=== PATIENT | female | born 1955 | race Caucasian/White ===

== ENCOUNTER 2018-03-21 20:58 | Inpatient (IN) | payer MEDICARE ==
[2018-03-21] MEDS ORDERED: methylPREDNISolone SOD SUCCI 125 MG/2 ML VIAL IV STA (21:46)
[2018-03-21] MEDS ORDERED: SODIUM CHLORIDE 0.9% 1,000 ML IV STA (21:46)
[2018-03-21 22:18] LABS: HCT 40.9 % (34.0-46.0); HGB 14.6 gm/dL (11.4-16.0); MCH 30.8 pg (25.0-35.0); MCHC 35.8 g/dL (31.0-37.0); MCV 86.1 fL (80.0-100.0); Mean Platelet Volume 6.5; Platelet Count 337 k/uL (150-450); RBC 4.75 m/uL (3.80-5.40); RDW 13.4 % (11.5-15.5); WBC 11.7 k/uL (3.8-10.6)
[2018-03-21 22:31] LABS: Albumin 4.3 g/dL (3.5-5.0); Potassium 3.9 mmol/L (3.5-5.1); Total Bilirubin 0.6 mg/dL (0.2-1.3); Total Protein 6.9 g/dL (6.3-8.2)
--- NOTE | 2018-03-21 22:47 | XR ---
EXAMINATION TYPE: XR chest 2V DATE OF EXAM: 03/21/2018 COMPARISON: 02/07/2016 HISTORY: Difficulty breathing TECHNIQUE: Frontal and lateral views of the chest are obtained. FINDINGS: Heart and mediastinum are normal. Lungs are clear. Diaphragm is normal. Bony thorax is int act. There are chest leads. IMPRESSION: Normal chest. No adverse change compared to old exam.
[2018-03-21 22:51] LABS: Creatine Kinase MB 0.9 ng/mL (0.0-2.4)
[2018-03-21 22:56] LABS: Eosinophils # (M) 0.12 k/uL (0-0.7); Lymphocytes # (M) 2.57 k/uL (1.0-4.8); Neutrophils # (M) 8.31 k/uL (1.3-7.7); Neutrophils % (M) 71 %; Nucleated Red Blood Cells 0 /100 WBC (0-0); Total Cells Counted 100
[2018-03-21 23:02] LABS: Prothrombin Time 10.1 sec (9.0-12.0)
--- NOTE | 2018-03-22 00:45 | ED ---
Recheck HPI - General Chief Complaint: Recheck/Abnormal Lab/Rx Stated Complaint: sent by -heart concerns/bloodwork Time Seen by Provider: 03/21/18 21:41 Source: patient Mode of arrival: ambulatory Limitations: no limitations - History of Present Illness Initial Comments: Extremity years O female comes to the ER she said she has a baseline shortness of breath she is a smoker but the reason she is in the ER because her family doctor called her and said there was some abnormal labs the patient doesn't know whether he was low potassium or there was d-dimer was elevated white count. She denies any headaches no neck stiffness no chest pain she is short- winded no abdominal pain no frequency urgency dysuria no symptoms of TIA or CVA - Related Data Home Medications Medication Instructions Recorded Confirmed Atenolol [Tenormin] 25 mg PO DAILY 03/21/18 03/21/18 FLUoxetine HCL [PROzac] 20 mg PO DAILY 03/21/18 03/21/18 Febuxostat [Uloric] 40 mg PO DAILY 03/21/18 03/21/18 Furosemide [Lasix] 40 mg PO DAILY 03/21/18 03/21/18 Levothyroxine Sodium [Synthroid] 50 mcg PO DAILY 03/21/18 03/21/18 Phentermine HCl [Adipex-P] 37.5 mg PO QAM@0900 03/21/18 03/21/18 Potassium Chloride [Klor-Con 20] 20 meq PO DAILY 03/21/18 03/21/18 Zolpidem Tartrate [Ambien] 5 mg PO HS PRN 03/21/18 03/21/18 Zolpidem [Ambien] 10 mg PO HS 03/21/18 03/21/18 oxyCODONE-APAP 10-325MG [Percocet 1 tab PO DAILY PRN 03/21/18 03/21/18 10-325 mg] rOPINIRole HCL [Requip] 1 mg PO HS 03/21/18 03/21/18 traMADol HCL [Ultram] 50 mg PO TID PRN 03/21/18 03/21/18 Allergies Allergy/AdvReac Type Severity Reaction Status Date / Time bupropion HCl Allergy Rash/Hives Verified 03/21/18 21:34 [From Wellbutrin] diclofenac potassium Allergy Anaphylaxis Verified 03/21/18 21:34 [From Cataflam] duloxetine HCl Allergy Rash/Hives Verified 03/21/18 21:34 [From Cymbalta] gabapentin [From Neurontin] Allergy Rash/Hives Verified 03/21/18 21:34 paroxetine HCl [From Paxil] Allergy Rash/Hives Verified 03/21/18 21:34 Review of Systems ROS Statement: Those systems with pertinent positive or pertinent negative responses have been documented in the HPI. ROS Other: All systems not noted in ROS Statement are negative. Past Medical History Additional Past Medical History / Comment(s): ruptured disc. History of Any Multi-Drug Resistant Organisms: None Reported Additional Past Surgical History / Comment(s): c4, c5, c6 fusion. Past Psychological History: Depression Smoking Status: Current every day smoker Past Alcohol Use History: Occasional Past Drug Use History: None Reported General Exam - General Exam Comments Initial Comments: General: The patient is awake and alert, in no distress, and does not appear acutely ill. Skin: Skin is warm and dry and no rashes or lesions are noted. Eye: Pupils are equal, round and reactive to light, extra-ocular movements are intact; there is normal conjunctiva bilaterally. Ears, nose, mouth and throat: There are moist mucous membranes and no oral lesions. Neck: The neck is supple, there is no tenderness or JVD. Cardiovascular: There is a regular rate and rhythm. No murmur, rub or gallop is appreciated. Respiratory: To auscultation bilateral, decreased breath sounds, exam consistent with a moderate to severe COPD Gastrointestinal: Soft, non-distended, non-tender abdomen without masses or organomegaly noted. There is no rebound or guarding present. Bowel sounds are unremarkable. Back: There is no tenderness to palpation in the midline. There is no obvious deformity. Musculoskeletal: Normal ROM, no tenderness, There is no pedal edema. There is no calf tenderness or swelling. No cords were appreciated. Neurological: CN II-XII intact, Cranial nerves III through XII are intact. There are no obvious motor or sensory deficits. Coordination appears grossly intact. Speech is normal. Psychiatric: Cooperative, appropriate mood & affect, normal judgment. Limitations: no limitations Course Vital Signs 03/21/18 03/21/18 03/21/18 21:01 21:50 22:50 Temperature 98.7 F Pulse Rate 83 65 Respiratory 16 22 20 Rate Blood Pressure 153/67 136/77 O2 Sat by Pulse 97 96 Oximetry 03/22/18 03/22/18 00:01 00:14 Temperature Pulse Rate 65 Respiratory 20 Rate Blood Pressure 115/72 O2 Sat by Pulse 98 Oximetry Medical Decision Making - Lab Data Result diagrams: 03/21/18 22:00 03/21/18 22:00 Lab Results 03/21/18 03/21/18 03/21/18 Range/Units 22:00 22:00 22:00 WBC 11.7 H (3.8-10.6) k/uL RBC 4.75 (3.80-5.40) m/uL Hgb 14.6 (11.4-16.0) gm/dL Hct 40.9 (34.0-46.0) % MCV 86.1 (80.0-100.0) fL MCH 30.8 (25.0-35.0) pg MCHC 35.8 (31.0-37.0) g/dL RDW 13.4 (11.5-15.5) % Plt Count 337 (150-450) k/uL Neutrophils % (Manual) 71 % Lymphocytes % (Manual) 22 % Monocytes % (Manual) 6 % Eosinophils % (Manual) 1 % Neutrophils # (Manual) 8.31 H (1.3-7.7) k/uL Lymphocytes # (Manual) 2.57 (1.0-4.8) k/uL Monocytes # (Manual) 0.70 (0-1.0) k/uL Eosinophils # (Manual) 0.12 (0-0.7) k/uL Nucleated RBCs 0 (0-0) /100 WBC Manual Slide Review Performed RBC Morphology Normal PT (9.0-12.0) sec INR (<1.2) APTT (22.0-30.0) sec Sodium 141 (137-145) mmol/L Potassium 3.9 (3.5-5.1) mmol/L Chloride 103 (98-107) mmol/L Carbon Dioxide 22 (22-30) mmol/L Anion Gap 16 mmol/L BUN 18 H (7-17) mg/dL Creatinine 1.10 H (0.52-1.04) mg/dL Est GFR (CKD-EPI)AfAm 63 (>60 ml/min/1.73 sqM) Est GFR (CKD-EPI)NonAf 54 (>60 ml/min/1.73 sqM) Glucose 94 (74-99) mg/dL Calcium 10.0 (8.4-10.2) mg/dL Total Bilirubin 0.6 (0.2-1.3) mg/dL AST 28 (14-36) U/L ALT 42 (9-52) U/L Alkaline Phosphatase 108 (38-126) U/L Total Creatine Kinase 66 (30-135) U/L CK-MB (CK-2) 0.9 (0.0-2.4) ng/mL CK-MB (CK-2) Rel Index 1.4 Troponin I 0.066 H* (0.000-0.034) ng/mL NT-Pro-B Natriuret Pep pg/mL Total Protein 6.9 (6.3-8.2) g/dL Albumin 4.3 (3.5-5.0) g/dL 03/21/18 03/21/18 Range/Units 22:00 22:00 WBC (3.8-10.6) k/uL RBC (3.80-5.40) m/uL Hgb (11.4-16.0) gm/dL Hct (34.0-46.0) % MCV (80.0-100.0) fL MCH (25.0-35.0) pg MCHC (31.0-37.0) g/dL RDW (11.5-15.5) % Plt Count (150-450) k/uL Neutrophils % (Manual) % Lymphocytes % (Manual) % Monocytes % (Manual) % Eosinophils % (Manual) % Neutrophils # (Manual) (1.3-7.7) k/uL Lymphocytes # (Manual) (1.0-4.8) k/uL Monocytes # (Manual) (0-1.0) k/uL Eosinophils # (Manual) (0-0.7) k/uL Nucleated RBCs (0-0) /100 WBC Manual Slide Review RBC Morphology PT 10.1 (9.0-12.0) sec INR 1.0 (<1.2) APTT 22.0 (22.0-30.0) sec Sodium (137-145) mmol/L Potassium (3.5-5.1) mmol/L Chloride (98-107) mmol/L Carbon Dioxide (22-30) mmol/L Anion Gap mmol/L BUN (7-17) mg/dL Creatinine (0.52-1.04) mg/dL Est GFR (CKD-EPI)AfAm (>60 ml/min/1.73 sqM) Est GFR (CKD-EPI)NonAf (>60 ml/min/1.73 sqM) Glucose (74-99) mg/dL Calcium (8.4-10.2) mg/dL Total Bilirubin (0.2-1.3) mg/dL AST (14-36) U/L ALT (9-52) U/L Alkaline Phosphatase (38-126) U/L Total Creatine Kinase (30-135) U/L CK-MB (CK-2) (0.0-2.4) ng/mL CK-MB (CK-2) Rel Index Troponin I (0.000-0.034) ng/mL NT-Pro-B Natriuret Pep 200 pg/mL Total Protein (6.3-8.2) g/dL Albumin (3.5-5.0) g/dL Critical Care Time Total Critical Care Time: 30 Critical Care Time: Patient came in with the very vague complaints of shortness of breath and some worsening of the chest pain with a deep breaths there was no chest pain, no history of coronary artery disease no stents in place. I noticed him a troponin is elevated EKG does not show any STEMI noticed flattening of the T- wave in lead 2 and lead V3. Now she be admitted to Dr. Amaya's service cardiology be consulted and I'll go ahead and heparinize her Disposition Clinical Impression: Dyspnea, Elevated troponin Disposition: ADMITTED IP TO THIS HOSP Condition: Good Referrals: Nura Forbes DO [Primary Care Provider] - 1-2 days
[2018-03-22] MEDS ORDERED: NITROGLYCERIN SL TABS 0.4 MG TAB SUBLINGUAL PRN ×2 (00:46→11:46)
[2018-03-22] MEDS ORDERED: ACETAMINOPHEN TAB 325 MG TAB PO PRN (00:46)
[2018-03-22] MEDS ORDERED: HEPARIN SODIUM,PORCINE 5,000 UNIT/ML 1 ML VIAL IV ONE (00:46)
[2018-03-22] MEDS ORDERED: MORPHINE SULFATE 4 MG/ML SYRINGE IV PRN (00:46)
[2018-03-22] MEDS ORDERED: traMADol 50 MG TAB PO PRN (00:50)
[2018-03-22] MEDS ORDERED: NICOTINE 21MG/24HR PATCH TRANSDERM STA (00:50)
[2018-03-22] MEDS ORDERED: ZOLPIDEM 5 MG TAB PO PRN (00:50)
[2018-03-22] MEDS: HEPARIN SODIUM,PORCINE/D5W PMX 25,000 UNIT in DEXTROSE/WATER 1 500ML.BAG IV SCH ×2 (00:58→12:24)
[2018-03-22] MEDS ORDERED: NICOTINE 14MG/24HR PATCH TRANSDERM STA (01:36)
[2018-03-22] MEDS: LEVOTHYROXINE 50 MCG TAB PO SCH (06:27)
[2018-03-22 06:49] LABS: Troponin I 0.066 ng/mL (0.000-0.034)
[2018-03-22 07:48] LABS: Troponin I 0.05 ng/mL (0.000-0.034)
[2018-03-22] MEDS: oxyCODONE-APAP 10-325MG 1 EACH TAB PO PRN ×2 (08:41→16:20)
[2018-03-22] MEDS: POTASSIUM CHLORIDE ER 20 MEQ TAB.ER PO SCH (08:53)
[2018-03-22] MEDS: ATENOLOL 25 MG TAB PO SCH (08:53)
[2018-03-22] MEDS: ALLOPURINOL 100 MG TAB PO SCH (08:53)
[2018-03-22] MEDS: FLUoxetine HCL 20 MG CAP PO SCH (08:53)
[2018-03-22] MEDS: FUROSEMIDE 40 MG TAB PO SCH (08:53)
[2018-03-22] MEDS: ADIPEX P PO SCH (09:47)
--- NOTE | 2018-03-22 09:53 | P.CRDCN ---
History of Present Illness Consult date: 03/22/18 Requesting physician: Cris Lauren Consult reason: chest pain, shortness of breath Chief complaint: Shortness of breath and chest heaviness History of present illness: This is a pleasant 62-year-old female with history of hypertension, patient also states she was told to have hyperlipidemia in the past however was taken off statins because her cholesterol came down to normal. History of hypothyroidism, nicotine dependence, questionable family history of premature coronary artery disease, fibromyalgia. Patient presented to the hospital with symptoms of exertional shortness of breath with associated chest heaviness and diaphoresis. According to the patient she's been having some symptoms of exertional shortness of breath over the past few weeks. She was treated with an antibiotic as an outpatient with the thought that she may have an upper respiratory infection. However over the past 2-3 days his symptoms have significantly worsened. She states she feels extremely heavy in the chest at this time and becomes quite diaphoretic. Once the patient sits down and rests shortly thereafter the symptoms subside. He went to see Dr. Willard, her primary care physician, who apparently performed a troponin which came back to be abnormal and patient was directed to come to the hospital for admission. EKG performed on arrival here showed normal sinus rhythm with no acute changes. Chest x-ray was normal. White blood cell count 11.7, hemoglobin 14.6, platelet count 337. D-dimer is negative. Sodium 141, potassium 3.9, chloride 103, BUN 18, creatinine 1.1. Troponin 0.066, 0.050. BNP 200. Temperature on arrival 98.7, blood pressure 152/60 with a heart rate in 80s, 97% on room air. Blood pressure this morning 130/60 with a heart rate in the 50s to 60s. The time of my examination this morning, patient is chest pain-free, states that her breathing is overall stable, she exerts herself. Past Medical History Additional Past Medical History / Comment(s): ruptured disc. History of Any Multi-Drug Resistant Organisms: None Reported Additional Past Surgical History / Comment(s): c4, c5, c6 fusion. Past Psychological History: Depression Smoking Status: Current every day smoker Past Alcohol Use History: Occasional Past Drug Use History: None Reported Medications and Allergies Home Medications Medication Instructions Recorded Confirmed Type Atenolol [Tenormin] 25 mg PO DAILY 03/21/18 03/21/18 History FLUoxetine HCL [PROzac] 20 mg PO DAILY 03/21/18 03/21/18 History Febuxostat [Uloric] 40 mg PO DAILY 03/21/18 03/21/18 History Furosemide [Lasix] 40 mg PO DAILY 03/21/18 03/21/18 History Levothyroxine Sodium [Synthroid] 50 mcg PO DAILY 03/21/18 03/21/18 History Phentermine HCl [Adipex-P] 37.5 mg PO QAM@0900 03/21/18 03/21/18 History Potassium Chloride [Klor-Con 20] 20 meq PO DAILY 03/21/18 03/21/18 History Zolpidem Tartrate [Ambien] 5 mg PO HS PRN 03/21/18 03/21/18 History Zolpidem [Ambien] 10 mg PO HS 03/21/18 03/21/18 History oxyCODONE-APAP 10-325MG [Percocet 1 tab PO DAILY PRN 03/21/18 03/21/18 History 10-325 mg] rOPINIRole HCL [Requip] 1 mg PO HS 03/21/18 03/21/18 History traMADol HCL [Ultram] 50 mg PO TID PRN 03/21/18 03/21/18 History Allergies Allergy/AdvReac Type Severity Reaction Status Date / Time bupropion HCl Allergy Rash/Hives Verified 03/21/18 21:34 [From Wellbutrin] diclofenac potassium Allergy Anaphylaxis Verified 03/21/18 21:34 [From Cataflam] duloxetine HCl Allergy Rash/Hives Verified 03/21/18 21:34 [From Cymbalta] gabapentin [From Neurontin] Allergy Rash/Hives Verified 03/21/18 21:34 paroxetine HCl [From Paxil] Allergy Rash/Hives Verified 03/21/18 21:34 Physical Exam Vitals: Vital Signs Temp Pulse Pulse Resp BP BP Pulse Ox 03/22/18 08:15 97.0 F L 58 L 20 131/65 97 03/22/18 06:28 98.3 F 69 18 118/71 95 03/22/18 05:45 70 18 108/64 95 03/22/18 04:44 66 18 118/62 96 03/22/18 04:00 70 18 105/60 96 05/08/18 02:21 68 16 124/60 95 03/22/18 01:20 97.6 F 72 18 104/69 96 03/22/18 00:14 115/72 03/22/18 00:01 65 20 98 03/21/18 22:50 65 20 136/77 96 03/21/18 21:50 22 03/21/18 21:01 98.7 F 83 16 153/67 97 Intake and Output 03/21/18 03/22/18 03/22/18 22:59 06:59 14:59 Intake Total 119.952 Balance 119.952 Intake: Intake, IV Titration 119.952 Amount Heparin Sodium,Porcine/ 119.952 D5w Pmx 25,000 unit In Dextrose/Water 1 500ml. bag @ 12 UNITS/KG/HR 16. 32 mls/hr IV .Q24H [facility] Rx #:[id number] Other: # Voids 2 Weight 68.039 kg PHYSICAL EXAMINATION: HEENT: Head is atraumatic, normocephalic. Pupils equal, round. Neck is supple. There is no elevated jugular venous pressure. HEART EXAMINATION: Heart S1, S2 normal. No murmur or gallop heard. CHEST EXAMINATION: Lungs are clear to auscultation and precussion. No chest wall tenderness is noted on palpation or with deep breathing. ABDOMEN: Soft, nontender. Bowel sounds are heard. No organomegaly noted. EXTREMITIES: 2+ peripheral pulses with no evidence of peripheral edema and no calf tenderness noted. NEUROLOGIC patient is awake, alert and oriented -3. . Results 03/21/18 22:00 03/21/18 22:00 Cardiac Enzymes 03/21/18 03/21/18 03/22/18 Range/Units 22:00 22:00 06:46 AST 28 (14-36) U/L CK-MB (CK-2) 0.9 1.0 (0.0-2.4) ng/mL Troponin I 0.066 H* 0.050 H* (0.000-0.034) ng/mL Coagulation 03/21/18 03/22/18 Range/Units 22:00 06:46 PT 10.1 (9.0-12.0) sec APTT 22.0 42.4 H (22.0-30.0) sec CBC 03/21/18 Range/Units 22:00 WBC 11.7 H (3.8-10.6) k/uL RBC 4.75 (3.80-5.40) m/uL Hgb 14.6 (11.4-16.0) gm/dL Hct 40.9 (34.0-46.0) % Plt Count 337 (150-450) k/uL Comprehensive Metabolic Panel 03/21/18 Range/Units 22:00 Sodium 141 (137-145) mmol/L Potassium 3.9 (3.5-5.1) mmol/L Chloride 103 (98-107) mmol/L Carbon Dioxide 22 (22-30) mmol/L BUN 18 H (7-17) mg/dL Creatinine 1.10 H (0.52-1.04) mg/dL Glucose 94 (74-99) mg/dL Calcium 10.0 (8.4-10.2) mg/dL AST 28 (14-36) U/L ALT 42 (9-52) U/L Alkaline Phosphatase 108 (38-126) U/L Total Protein 6.9 (6.3-8.2) g/dL Albumin 4.3 (3.5-5.0) g/dL Current Medications Generic Name Dose Route Start Last Admin Trade Name Freq PRN Reason Stop Dose Admin Acetaminophen 650 mg 03/22/18 00:46 Tylenol Tab PO Q4HR PRN Pain Allopurinol 200 mg 03/22/18 09:00 03/22/18 08:53 Zyloprim PO 200 mg DAILY TOR Administration Aspirin 325 mg 03/23/18 09:00 Aspirin PO DAILY TOR Atenolol 25 mg 03/22/18 09:00 03/22/18 08:53 Tenormin PO 25 mg DAILY TOR Administration Fluoxetine HCl 20 mg 03/22/18 09:00 03/22/18 08:53 Prozac PO 20 mg DAILY TOR Administration Furosemide 40 mg 03/22/18 09:00 03/22/18 08:53 Lasix PO 40 mg DAILY TOR Administration Sodium Chloride 1,000 mls @ 50 mls/hr 03/21/18 21:46 03/21/18 22:44 Saline 0.9% IV 03/22/18 17:45 50 mls/hr .Q20H STA Administration Heparin Sodium/Dextrose 25,000 500 mls @ 16.32 mls/hr 03/22/18 01:00 08:19 unit/ IV Solution IV 14.03 units/kg/hr .Q24H [facility] 19.1 mls/hr Protocol Titration 12 UNITS/KG/HR Levothyroxine Sodium 50 mcg 03/22/18 06:00 03/22/18 06:27 Synthroid PO 50 mcg DAILY@0600 TOR Administration Morphine Sulfate 4 mg 03/22/18 00:46 Morphine Sulfate (Inj) IV Q5M PRN Chest Pain Nitroglycerin 0.4 mg 03/22/18 00:46 Nitrostat SUBLINGUAL Q5M PRN Chest Pain Adipex-P 37.5mg 37.5 mg 03/22/18 09:00 PO QAM@0900 TOR Oxycodone/Acetaminophen 1 each 03/22/18 00:50 03/22/18 08:41 Percocet 10-325 PO 1 each DAILY PRN Administration Pain Potassium Chloride 20 meq 03/22/18 09:00 03/22/18 08:53 K-Dur 20 PO 20 meq DAILY TOR Administration Ropinirole HCl 1 mg 03/22/18 21:00 Requip PO HS TOR Tramadol HCl 50 mg 03/22/18 00:50 Ultram PO TID PRN Pain Zolpidem Tartrate 5 mg 03/22/18 00:50 Ambien PO HS PRN Insomnia Intake and Output 03/21/18 03/22/18 03/22/18 22:59 06:59 14:59 Intake Total 119.952 Balance 119.952 Intake: Intake, IV Titration 119.952 Amount Heparin Sodium,Porcine/ 119.952 D5w Pmx 25,000 unit In Dextrose/Water 1 500ml. bag @ 12 UNITS/KG/HR 16. 32 mls/hr IV .Q24H [facility] Rx #:[id number] Other: # Voids 2 Weight 68.039 kg 03/21/18 22:00 03/21/18 22:00 EKG Interpretations (text) EKG shows a normal sinus rhythm with no acute changes. Subsequent EKG performed this morning shows normal sinus rhythm with no acute changes. Assessment and Plan Plan: Assessment and plan #1 symptoms of exertional shortness of breath with associated chest heaviness and diaphoresis, suggesting possible acute coronary syndrome. EKG shows normal sinus rhythm with no acute changes. Troponins 0.066, 0.050. #2 hypertension #3 nicotine dependence #4 history of hyperlipidemia, patient stopped taking cholesterol pills because her levels were normal #5 fibromyalgia #6 chronic cervical spine pain #7 questionable family history of premature coronary artery disease Plan We will obtain an echocardiogram with Doppler study. She did undergo a Lexiscan stress test in 2016 which was normal. Echo cardiac gram with Doppler study was also performed at that time which we'll do an ejection fraction at that time of 55-60%. We will obtain a fasting lipid profile. Obtain third troponin. Continue IV heparin. CTA of the chest will be ordered to rule out the possibility of pulmonary embolism. If the CTA of the chest is negative for pulmonary embolism, we will schedule patient for heart catheterization tomorrow morning. The risks and the benefits of both procedures have been explained to the patient in detail. DNP note has been reviewed, I agree with a documented findings and plan of care. Patient was seen and examined.
[2018-03-22] MEDS ORDERED: RX INFO: IV CONTRAST WAS GIVEN 1 EACH MISC MISCELLANE PRN (09:56)
[2018-03-22 10:31] LABS: Cholesterol 208 mg/dL (<200); HDL Cholesterol 56 mg/dL (40-60); LDL Cholesterol,Calculated 129 mg/dL (0-99); Triglycerides 116 mg/dL (<150)
--- NOTE | 2018-03-22 10:34 | ECHOF ---
Referral Reason:Dyspnea with elevated troponin MEASUREMENTS -------- HEIGHT: 160.0 cm WEIGHT: 68.0 kg BP: 114/56 RVIDd: 3.0 cm (< 3.3) IVSd: 1.2 cm (0.6 - 1.1) LVIDd: 3.4 cm (3.9 - 5.3) LVPWd: 1.0 cm (0.6 - 1.1) IVSs: 1.4 cm LVIDs: 2.7 cm LVPWs: 1.7 cm LAESV Index (A-L): 23.76 ml/m Ao Diam: 3.1 cm (2.0 - 3.7) AV Cusp: 1.9 cm (1.5 - 2.6) LA Diam: 3.0 cm (2.7 - 3.8) MV EXCURSION: 18.742 mm (> 18.000) MV EF SLOPE: 139 mm/s (70 - 150) EPSS: 0.4 cm MV E Emeterio: 0.76 m/s MV DecT: 168 ms MV A Emeterio: 0.92 m/s MV E/A Ratio: 0.83 RAP: 5.00 mmHg RVSP: 25.72 mmHg FINDINGS -------- Sinus rhythm. This was a technically good study. The left ventricular size is normal. There is mild concentric left ventricular hypertrophy. Overa ll left ventricular systolic function is normal with, an EF between 55 - 60 %. The right ventricle is normal in size. The left atrial size is normal. Normal LA size by volume 22+/-6 ml/m2. The right atrial size is normal. There is mild aortic valve sclerosis. There is no evidence of aortic regurgitation. Mild mitral annular calcification present. Mild mitral regurgitation is present. Mild tricuspid regurgitation present. There is no evidence of pulmonary hypertension. The right v entricular systolic pressure, as measured by Doppler, is 25.72mmHg. Trace/mild (physiologic) pulmonic regurgitation. The aortic root size is normal. There is no pericardial effusion. CONCLUSIONS -------- 1. The left ventricular size is normal. 2. There is mild concentric left ventricular hypertrophy. 3. Overall left ventricular systolic function is normal with, an EF between 55 - 60 %. 4. The left atrial size is normal. 5. The right atrial size is normal. 6. There is mild aortic valve sclerosis. 7. Mild mitral annular calcification present. 8. Mild mitral regurgitation is present. 9. Mild tricuspid regurgitation present. 10. There is no evidence of pulmonary hypertension. 11. The right ventricular systolic pressure, as measured by Doppler, is 25.72mmHg. 12. Trace/mild (physiologic) pulmonic regurgitation. 13. The aortic root size is normal. 14. There is no pericardial effusion. [employer]: Delmis Bauer RDCS
--- NOTE | 2018-03-22 11:23 | CT ---
EXAMINATION TYPE: CT angio chest DATE OF EXAM: 03/22/2018 COMPARISON: NONE HISTORY: Difficulty breathing CT DLP: 295.0 mGycm CONTRAST: CT chest with contrast and 3D reconstruction with MIP imaging is performed with IV Contrast, patient injected with 80 mL of Isovue 370. Contrast-enhanced CT of the chest was performed through the course of the pulmonary arteries with rosario g and mediastinal window settings submitted. 3D reconstruction with MIP imaging was also performed. PULMONARY ARTERIES: The pulmonary arteries and their major tributaries are patent. I do not see mariam dence for sizable filling defect to suggest pulmonary embolic process. LUNGS: The lungs are clear and free of infiltrate. Mild linear atelectasis left lung base. No pulmona ry nodule or mass is detected. No pleural effusion. MEDIASTINUM: Thoracic aorta is of normal caliber,however, evaluation is limited given timing of the contrast bolus. If there is concern for thoracic aortic pathology consider MACARIO. Correlate clinicall y . The heart is not enlarged. No evidence for mediastinal mass. No mediastinal lymph nodes greater than 1cm. HILAR STRUCTURES: No evidence for mass. No hilar lymph nodes greater than 1 cm. UPPER ABDOMEN: No significant abnormality is seen. IMPRESSION: 1. No evidence for Pulmonary embolism at this time.
[2018-03-22] MEDS ORDERED: ALPRAZolam 0.5 MG TAB PO PRN (11:46)
[2018-03-22] MEDS ORDERED: SODIUM CHLORIDE 0.9% 1,000 ML in EMPTY BAG 1 BAG IV ONE (11:46)
[2018-03-22] MEDS ORDERED: ATORVASTATIN 80 MG TAB PO STA (11:46)
[2018-03-22] MEDS ORDERED: ASPIRIN 325 MG TAB PO STA (11:46)
--- NOTE | 2018-03-22 14:59 | P.HPIM ---
History of Present Illness H&P Date: 03/22/18 Chief Complaint: Abnormal chemistries cold in by physician to be seen in emergency room This 62-year-old female patient of Dr. Forbes patient has underlying history of hypertension, hyperlipidemia hypothyroidism, tobacco dependency and fibromyalgia. She also has a family member mother with CAD at age 45. Presented to the emergency room secondary to abnormal chemistries. On investigation it looks like a positive troponin was elevated at 0.066, d-dimer was normal BNP normal at 200. This was performed secondary to her complaints off shortness of breath and fatigue diaphoresis for the past 2 weeks. Patient had had the flu and fever in February 2015 since then patient never covered. She has dyspnea on exertion, and hyperhidrosis myalgia mainly the thigh patient denies any leg edema and no chest pressure. Cough has resolved, no sick contacts or foreign travels. Emergency room EKG showed normal sinus rhythm without any acute changes, chest x -ray was normal, tWBC of 11.7, creatinine of 1.1 troponin 0.066 BNP of 200. D- dimer of 0.58 with an upper limit of 0.60 patient was scheduled to have a CAT scan of the chest to rule out pulmonary emboli, patient currently is on IV heparin, cardiology to see, echocardiogram requested fasting lipid his elevated mainly with an LDL of 129 triglyceride of 116. Cardiac cath is scheduled for tomorrow morning Review of Systems Constitutional: Reports as per HPI, Denies anorexia, Denies chills, Denies chronic headaches, Denies chronic pain, Denies daytime sleepiness, Denies fatigue, Denies fever, Denies lethargy, Denies malaise, Denies night sweats, Denies poor appetite, Denies sweats, Denies weakness, Denies weight gain, Denies weight loss Ears, nose, mouth and throat: Reports as per HPI, Denies ant. neck pain, Denies bleeding gums, Denies dental pain, Denies dysphagia, Denies epistaxis, Denies headache, Denies hoarseness, Denies mouth pain, Denies nasal congestion, Denies nasal discharge, Denies neck fullness/pressure, Denies neck lump, Denies nose pain, Denies odynophagia, Denies post-nasal drip, Denies sinus pain, Denies sinus pressure, Denies swelling in mouth, Denies swelling in throat, Denies sore throat, Denies vertigo, Denies voice changes Cardiovascular: Reports as per HPI Respiratory: Reports as per HPI Gastrointestinal: Reports as per HPI, Reports heartburn, Reports indigestion Genitourinary: Reports as per HPI Menstruation: Reports as per HPI Musculoskeletal: Reports as per HPI Integumentary: Reports as per HPI Neurological: Reports as per HPI, Denies aphasia, Denies ataxia, Denies balance difficulties, Denies burning pain, Denies change in mentation, Denies change in smell/taste, Denies change in speech, Denies confusion, Denies convulsions, Denies double vision, Denies gait dysfunction, Denies head injury, Denies headaches, Denies hearing difficulties, Denies lack of coordination, Denies loss of vision, Denies memory loss, Denies migraines, Denies motor disturbance, Denies numbness, Denies paralysis, Denies paresthesias, Denies seizures, Denies sensory deficit, Denies spasticity, Denies syncope, Denies tic, Denies tingling , Denies transient paralysis, Denies tremors, Denies vertigo, Denies weakness, Denies visual changes Psychiatric: Reports as per HPI, Denies anhedonia, Denies anxiety, Denies anxiety attacks, Denies change in appetite, Denies change in libido, Denies change in sleep habits, Denies confusion, Denies depression, Denies difficulty concentrating, Denies disorientation, Denies hallucinations, Denies hopelessness , Denies hypersomnia, Denies insomnia, Denies irritability, Denies memory loss, Denies mood swings, Denies paranoia, Denies sadness/tearfulness, Denies sleep disturbances, Denies suicidal ideation Endocrine: Reports as per HPI, Denies cold intolerance, Denies deepening of the voice, Denies excessive sweating, Denies excessive thirst, Denies fatigue, Denies flushing, Denies heat intolerance, Denies high blood sugars, Denies increase in ring/shoe/hat size, Denies low blood sugars, Denies nocturia, Denies palpitations, Denies polydipsia, Denies polyphagia, Denies polyuria, Denies proptosis, Denies recent glucocorticoid use, Denies thyroid mass, Denies weight change Hematologic/Lymphatic: Reports as per HPI Allergic/Immunologic: Reports as per HPI, Denies allergic rhinitis, Denies anaphylaxis, Denies angioedema, Denies gluten intolerance, Denies persistent infections, Denies seasonal allergies, Denies urticaria, Denies wheezing Past Medical History Past Medical History: GERD/Reflux, Hyperlipidemia, Hypertension, Pneumonia, Thyroid Disorder Additional Past Medical History / Comment(s): ruptured disc. History of Any Multi-Drug Resistant Organisms: None Reported Past Surgical History: Orthopedic Surgery Additional Past Surgical History / Comment(s): c4, c5, c6 fusion. Past Anesthesia/Blood Transfusion Reactions: No Reported Reaction, Motion Sickness Past Psychological History: Depression Smoking Status: Current every day smoker Past Alcohol Use History: Occasional Past Drug Use History: None Reported - Past Family History Father History Unknown: Yes Family Medical History: CVA/TIA Additional Family Medical History / Comment(s): Father of a CVA in his 80s. Mother Family Medical History: Cancer, Coronary Artery Disease (CAD) (MD at age 40), Hyperlipidemia, Hypertension Additional Family Medical History / Comment(s): Mother had uterine cancer with surgery. She at the age of 87yrs. Brother(s) History Unknown: Yes (5 brothers healthy) Sister(s) Family Medical History: Coronary Artery Disease (CAD) (One sister, CAD at age 45 , alive) Daughter(s) Family Medical History: Asthma Son(s) History Unknown: Yes (Depression) Medications and Allergies Home Medications Medication Instructions Recorded Confirmed Type Atenolol [Tenormin] 25 mg PO DAILY 03/21/18 03/21/18 History FLUoxetine HCL [PROzac] 20 mg PO DAILY 03/21/18 03/21/18 History Febuxostat [Uloric] 40 mg PO DAILY 03/21/18 03/21/18 History Furosemide [Lasix] 40 mg PO DAILY 03/21/18 03/21/18 History Levothyroxine Sodium [Synthroid] 50 mcg PO DAILY 03/21/18 03/21/18 History Phentermine HCl [Adipex-P] 37.5 mg PO QAM@0900 03/21/18 03/21/18 History Potassium Chloride [Klor-Con 20] 20 meq PO DAILY 03/21/18 03/21/18 History Zolpidem Tartrate [Ambien] 5 mg PO HS PRN 03/21/18 03/21/18 History Zolpidem [Ambien] 10 mg PO HS 03/21/18 03/21/18 History oxyCODONE-APAP 10-325MG [Percocet 1 tab PO DAILY PRN 03/21/18 03/21/18 History 10-325 mg] rOPINIRole HCL [Requip] 1 mg PO HS 03/21/18 03/21/18 History traMADol HCL [Ultram] 50 mg PO TID PRN 03/21/18 03/21/18 History Allergies Allergy/AdvReac Type Severity Reaction Status Date / Time bupropion HCl Allergy Rash/Hives Verified 03/21/18 21:34 [From Wellbutrin] diclofenac potassium Allergy Anaphylaxis Verified 03/21/18 21:34 [From Cataflam] duloxetine HCl Allergy Rash/Hives Verified 03/21/18 21:34 [From Cymbalta] gabapentin [From Neurontin] Allergy Rash/Hives Verified 03/21/18 21:34 paroxetine HCl [From Paxil] Allergy Rash/Hives Verified 03/21/18 21:34 Physical Exam Vitals: Vital Signs Temp Pulse Pulse Resp BP BP Pulse Ox 03/22/18 11:45 96.7 F L 57 L 18 102/64 97 03/22/18 08:15 97.0 F L 58 L 20 131/65 97 03/22/18 06:28 98.3 F 69 18 118/71 95 03/22/18 05:45 70 18 108/64 95 03/22/18 04:44 66 18 118/62 96 03/22/18 04:00 70 18 105/60 96 03/22/18 02:21 68 16 124/60 95 03/22/18 01:20 97.6 F 72 18 104/69 96 03/22/18 00:14 115/72 03/22/18 00:01 65 20 98 03/21/18 22:50 65 20 136/77 96 03/21/18 21:50 22 03/21/18 21:01 98.7 F 83 16 153/67 97 Intake and Output 03/21/18 03/22/18 03/22/18 22:59 06:59 14:59 Intake Total 197.944 Balance 197.944 Intake: Intake, IV Titration 197.944 Amount Heparin Sodium,Porcine/ 197.944 D5w Pmx 25,000 unit In Dextrose/Water 1 500ml. bag @ 12 UNITS/KG/HR 16. 32 mls/hr IV .Q24H [facility] Rx #:[id number] Other: # Voids 3 Weight 68.039 kg - Constitutional General appearance: cooperative, no acute distress - EENT Eyes: anicteric sclerae, EOMI, PERRLA, dentition normal, normal appearance ENT: NA/AT, normal oropharynx - Respiratory Respiratory: bilateral: CTA, negative: diminished, dullness, rales - Cardiovascular Rhythm: regular Heart sounds: normal: S1, S2 Abnormal Heart Sounds: no systolic murmur, no diastolic murmur, no rub, no S3 Gallop, no S4 Gallop, no click, no other - Gastrointestinal General gastrointestinal: normal bowel sounds, soft - Integumentary Integumentary: normal, normal turgor - Neurologic Neurologic: CNII-XII intact - Musculoskeletal Musculoskeletal: gait normal, strength equal bilaterally - Psychiatric Psychiatric: A&O x's 3, intact judgment & insight Results CBC & Chem 7: 03/21/18 22:00 03/21/18 22:00 Labs: Abnormal Lab Results - Last 24 Hours (Table) 03/21/18 03/21/18 03/21/18 Range/Units 22:00 22:00 22:00 WBC 11.7 H (3.8-10.6) k/uL Neutrophils # (Manual) 8.31 H (1.3-7.7) k/uL APTT (22.0-30.0) sec BUN 18 H (7-17) mg/dL Creatinine 1.10 H (0.52-1.04) mg/dL Troponin I 0.066 H* (0.000-0.034) ng/mL Cholesterol (<200) mg/dL LDL Cholesterol, Calc (0-99) mg/dL 03/22/18 03/22/18 03/22/18 Range/Units 06:46 06:46 06:46 WBC (3.8-10.6) k/uL Neutrophils # (Manual) (1.3-7.7) k/uL APTT 42.4 H (22.0-30.0) sec BUN (7-17) mg/dL Creatinine (0.52-1.04) mg/dL Troponin I 0.050 H* (0.000-0.034) ng/mL Cholesterol 208 H (<200) mg/dL LDL Cholesterol, Calc 129 H (0-99) mg/dL Laboratory Results WBC 11.7 k/uL (3.8-10.6) H 03/21/18 22:00 RBC 4.75 m/uL (3.80-5.40) 03/21/18 22:00 Hgb 14.6 gm/dL (11.4-16.0) 03/21/18 22:00 Hct 40.9 % (34.0-46.0) 03/21/18 22:00 MCV 86.1 fL (80.0-100.0) 03/21/18 22:00 MCH 30.8 pg (25.0-35.0) 03/21/18 22:00 MCHC 35.8 g/dL (31.0-37.0) 03/21/18 22:00 RDW 13.4 % (11.5-15.5) 03/21/18 22:00 Plt Count 337 k/uL (150-450) 03/21/18 22:00 Neutrophils % (Manual) 71 % 03/21/18 22:00 Lymphocytes % (Manual) 22 % 03/21/18 22:00 Monocytes % (Manual) 6 % 03/21/18 22:00 Eosinophils % (Manual) 1 % 03/21/18 22:00 Neutrophils # (Manual) 8.31 k/uL (1.3-7.7) H 03/21/18 22:00 Lymphocytes # (Manual) 2.57 k/uL (1.0-4.8) 03/21/18 22:00 Monocytes # (Manual) 0.70 k/uL (0-1.0) 03/21/18 22:00 Eosinophils # (Manual) 0.12 k/uL (0-0.7) 03/21/18 22:00 Nucleated RBCs 0 /100 WBC (0-0) 03/21/18 22:00 Manual Slide Review Performed 03/21/18 22:00 RBC Morphology Normal 03/21/18 22:00 PT 10.1 sec (9.0-12.0) 03/21/18 22:00 INR 1.0 (<1.2) 03/21/18 22:00 APTT 42.4 sec (22.0-30.0) H 03/22/18 06:46 D-Dimer 0.58 mg/L FEU (<0.60) 03/22/18 01:10 Sodium 141 mmol/L (137-145) 03/21/18 22:00 Potassium 3.9 mmol/L (3.5-5.1) 03/21/18 22:00 Chloride 103 mmol/L (98-107) 03/21/18 22:00 Carbon Dioxide 22 mmol/L (22-30) 03/21/18 22:00 Anion Gap 16 mmol/L 03/21/18 22:00 BUN 18 mg/dL (7-17) H 03/21/18 22:00 Creatinine 1.10 mg/dL (0.52-1.04) H 03/21/18 22:00 Est GFR (CKD-EPI)AfAm 63 (>60 ml/min/1.73 sqM) 03/21/18 22:00 Est GFR (CKD-EPI)NonAf 54 (>60 ml/min/1.73 sqM) 03/21/18 22:00 Glucose 94 mg/dL (74-99) 03/21/18 22:00 Calcium 10.0 mg/dL (8.4-10.2) 03/21/18 22:00 Total Bilirubin 0.6 mg/dL (0.2-1.3) 03/21/18 22:00 AST 28 U/L (14-36) 03/21/18 22:00 ALT 42 U/L (9-52) 03/21/18 22:00 Alkaline Phosphatase 108 U/L (38-126) 03/21/18 22:00 Total Creatine Kinase 51 U/L (30-135) 03/22/18 06:46 CK-MB (CK-2) 1.0 ng/mL (0.0-2.4) 03/22/18 06:46 CK-MB (CK-2) Rel Index 2.0 03/22/18 06:46 Troponin I 0.050 ng/mL (0.000-0.034) H* 03/22/18 06:46 NT-Pro-B Natriuret Pep 200 pg/mL 03/21/18 22:00 Total Protein 6.9 g/dL (6.3-8.2) 03/21/18 22:00 Albumin 4.3 g/dL (3.5-5.0) 03/21/18 22:00 Triglycerides 116 mg/dL (<150) 03/22/18 06:46 Cholesterol 208 mg/dL (<200) H 03/22/18 06:46 LDL Cholesterol, Calc 129 mg/dL (0-99) H 03/22/18 06:46 HDL Cholesterol 56 mg/dL (40-60) 03/22/18 06:46 Thrombosis Risk Factor Assmnt - Choose All That Apply Any of the Below Risk Factors Present?: Yes Each Factor Represents 1 point: Obesity (BMI >25) Other Risk Factors: Yes Each Risk Factor Represents 2 Points: Age 61-74 years Other congenital or acquired thrombophilia - If yes, enter type in comment: No Thrombosis Risk Factor Assessment Total Risk Factor Score: 3 Thrombosis Risk Factor Assessment Level: Moderate Risk Assessment and Plan Plan: 1. Dyspnea on exertion with diaphoresis on exertion, elevated troponin, unstable angina is considered highly suspected NSTEMI, patient would undergo a cardiac catheterization the morning. She presented with elevated troponins in the emergency room. Patient currently slightly heparin, aspirin, statin and beta stacey Tenormin 2. Hypothyroidism on levothyroxine 50 Mcg daily 23. CK D stage III, GFR 54, nephrotoxins will be avoided, in view off contrast studies no morning, patient would maintain IV hydration at this time, creatinine to be monitored closely 4. Mild leukocytosis most likely reactive, no acute signs of infection clinically, continue to monitor, no oral antibiotics is needed at this time 5 tobacco dependency, patient was offered nicotine replacement program and patient refuses, patient is to continue on a permanent cessation program at her own pace 6. Lumbar disc disease with prior cervical fusion, on maintenance Percocet from home and tramadol. Next 7 restlessleg syndrome, ropinirorole at 1 mg at bedtime 8 Hyperuricemia without any acute symptoms of gout or gouty arthropathy. Allopurinol 20 mg daily 9Dysthymia on Prozac 20 mg daily no changes made. 10. GI stress ulcer prevention and prophylaxis on Zantac 11The VTE prophylaxis on heparin IV currently to completion of cardiac workup. Early ambulation 12. Dysphagia to solid and liquid food, patient will be worked up as an outpatient with GI doctor, this has been a chronic issue no previous workup in past Inpatient stay expected junaid's office today to be seen consultation by cardiology with imaging studies for unstable angina
[2018-03-22] MEDS ORDERED: ZOLPIDEM 10 MG TAB PO SCH (21:00)
[2018-03-22] MEDS: ALPRAZolam 0.25 MG TAB PO PRN (21:42)
[2018-03-22 22:16] LABS: Creatine Kinase MB 1.8 ng/mL (0.0-2.4)
[2018-03-22 22:30] LABS: Troponin I 0.043 ng/mL (0.000-0.034)
[2018-03-23] MEDS: BENZONATATE 100 MG CAP PO SCH ×2 (00:14→06:45)
[2018-03-23] MEDS: oxyCODONE-APAP 10-325MG 1 EACH TAB PO PRN ×2 (06:43→14:14)
[2018-03-23] MEDS: ALLOPURINOL 100 MG TAB PO SCH (06:45)
[2018-03-23] MEDS: LEVOTHYROXINE 50 MCG TAB PO SCH (06:45)
[2018-03-23] MEDS: ATENOLOL 25 MG TAB PO SCH (06:45)
[2018-03-23] MEDS: POTASSIUM CHLORIDE ER 20 MEQ TAB.ER PO SCH (06:46)
[2018-03-23] MEDS: FLUoxetine HCL 20 MG CAP PO SCH (06:46)
[2018-03-23] MEDS: ALPRAZolam 0.25 MG TAB PO PRN (07:10)
[2018-03-23 07:16] LABS: Calcium 9.4 mg/dL (8.4-10.2); Potassium 3.8 mmol/L (3.5-5.1)
[2018-03-23 07:36] VITALS: RESP 16; TEMP 97.9
[2018-03-23] MEDS ORDERED: ASPIRIN 325 MG TAB PO SCH (09:00)
[2018-03-23] MEDS ORDERED: LIDOCAINE 2% INJ 20 MG/ML (20 ML MDV) ONE ×2 (09:03→09:32)
[2018-03-23] MEDS ORDERED: MIDAZOLAM 2 MG/2 ML VIAL ONE (09:22)
[2018-03-23] MEDS ORDERED: fentaNYL (PF) 50 MCG/ML 2 ML AMP ONE (09:22)
[2018-03-23] MEDS ORDERED: IV FLUID CONTINUATION 1,000 ML IV ONE (09:25)
[2018-03-23] MEDS ORDERED: fentaNYL (PF) 50 MCG/ML 2 ML AMP IV ONE (09:25)
[2018-03-23] MEDS ORDERED: MIDAZOLAM 2 MG/2 ML VIAL IV ONE (09:25)
[2018-03-23] MEDS ORDERED: LIDOCAINE 2% INJ 20 MG/ML SQ ONE ×3 (09:29→09:33)
[2018-03-23] MEDS ORDERED: IOPAMIDOL-370 125ML BTL INJ ONE (09:43)
[2018-03-23] MEDS ORDERED: RX INFO: IV CONTRAST WAS GIVEN 1 EACH MISC MISCELLANE PRN (10:15)
--- NOTE | 2018-03-23 10:46 | CC ---
CARDIAC CATHETERIZATION REPORT Mrs Mike is a 62-year-old female who came to the hospital with a complaint of shortness of breath of couple of weeks duration. Patient had abnormal troponin. EKG was normal. Echocardiogram was normal. Patient had a CT scan of the chest which was negative for pulmonary embolism or any acute lung process. Exact etiology of this patient's abnormal troponin was unclear. In view of that, the patient was advised cardiac catheterization for definitive diagnosis to rule out any significant underlying coronary artery disease. PROCEDURE: The right groin was prepped and draped in the usual manner and the skin was infiltrated with 2% Xylocaine. The right femoral artery was entered using Seldinger technique. A #6- Azeri sheath was placed in. Selective coronary angiography was then performed in multiple projections and the left ventriculography was performed in 30-degree DIEZ projection. Patient tolerated the procedure well. HEMODYNAMICS: Left ventricular end-diastolic pressure is 14 to 16 mmHg prior to angiography and no gradient is noted across the aortic valve. SELECTIVE CORONARY ANGIOGRAPHY: Left main coronary artery is normally patent. LAD is a good caliber blood vessel and gives rise to small size diagonal branch. LAD and its branches are normal. Circumflex coronary artery is normal caliber blood vessel and it was normal. The right coronary artery gives rise to a small size posterior descending artery. Right coronary artery and its branches are normal. FINAL IMPRESSION: This study reveals normal coronary arteries. Left ventricular systolic function is normal. RECOMMENDATIONS: Medical treatment. At present, we will recommend to treat the patient with aspirin, Plavix and Lipitor for 3 to 6 months. MMODL / IJN: [id number] /
[2018-03-23] MEDS: ADIPEX P PO SCH (11:29)
[2018-03-23] MEDS: FUROSEMIDE 40 MG TAB PO SCH (11:30)
[2018-03-23 13:34] VITALS: BP 110/71; PULSE 63
--- NOTE | 2018-03-23 14:19 | P.DS ---
Providers Date of admission: 03/22/18 00:50 Expected date of discharge: 03/23/18 Attending physician: Cris Lauren Consults: 03/22/18 00:46 Consult Physician Urgent Consulting Provider: Sian Brownlee Consult Reason/Comments: Elevated troponin, dyspnea Do you want consulting provider notified?: Yes Primary care physician: Nura Forbes [facility] Course: This 62-year-old female patient of Dr. Forbes patient has underlying history of hypertension, hyperlipidemia hypothyroidism, tobacco dependency and fibromyalgia. She also has a family member mother with CAD at age 45. Presented to the emergency room secondary to abnormal chemistries. On investigation it looks like a positive troponin was elevated at 0.066, d-dimer was normal BNP normal at 200. This was performed secondary to her complaints off shortness of breath and fatigue diaphoresis for the past 2 weeks. Patient had had the flu and fever in February 2015 since then patient never covered. She has dyspnea on exertion, and hyperhidrosis myalgia mainly the thigh patient denies any leg edema and no chest pressure. Cough has resolved, no sick contacts or foreign travels. Emergency room EKG showed normal sinus rhythm without any acute changes, chest x -ray was normal, tWBC of 11.7, creatinine of 1.1 troponin 0.066 BNP of 200. D- dimer of 0.58 with an upper limit of 0.60 patient was scheduled to have a CAT scan of the chest to rule out pulmonary emboli, patient currently is on IV heparin, cardiology to see, echocardiogram requested fasting lipid his elevated mainly with an LDL of 129 triglyceride of 116. Cardiac cath is scheduled for tomorrow morning 03/23: Echocardiogram reveals EF of 55-60% with mild concentric left ventricular hypertrophy, mild mitral regurgitation, mild tricuspid regurgitation, no pulmonary hypertension. CT of the chest was negative for pulmonary embolism. Patient has been seen by cardiology with recommendations to continue IV heparin and patient is scheduled for heart catheterization. Heart catheterization revealed normal coronary arteries with recommendations for aspirin, Plavix, atorvastatin for 3-6 months and follow-up in the office. Repeat troponin was 0.043. Triglycerides 116, cholesterol 208, LDL 129 and HDL 56. Regarding patient's dysphagia, she has been told to eat a soft diet and thickened liquids until seen by Dr. Gallardo as an outpatient. Patient will be discharged home today in stable condition. Discharge diagnoses: 1. Dyspnea on exertion with diaphoresis on exertion, NSTEMI ruled out. 2. Hypothyroidism 3. CKD stage III 4. Mild leukocytosis most likely reactive, no acute signs of infection 5. Tobacco dependency 6. Lumbar disc disease with prior cervical fusion 7. Restlessleg syndrome 8. Hyperuricemia without any acute symptoms of gout or gouty arthropathy. 9. Dysthymia 10. Chronic dysphagia to solid and liquid food Discharge plan: Home Impression and plan of care have been directed as dictated by the signing physician. Johanna Mitchell nurse practitioner acting as scribe for signing physician. Patient Condition at Discharge: Good Plan - Discharge Summary Discharge Rx Participant: No New Discharge Prescriptions: New Aspirin 81 mg PO DAILY chew Atorvastatin [Lipitor] 40 mg PO HS #30 tab Clopidogrel [Plavix] 75 mg PO DAILY #30 tab Nitroglycerin Sl Tabs [Nitrostat] 0.4 mg SUBLINGUAL Q5M PRN #25 tab PRN Reason: Chest Pain Azithromycin [Zithromax Z-pack] 0 mg PO DIRECTED #6 tab Benzonatate [Tessalon Perles] 200 mg PO TID #21 cap Budesonide/Formoterol Fumarate [Symbicort 160-4.5 Mcg Inhaler] 2 puff INHALATION BID #1 inhaler Ipratropium/Albuterol Sulfate [Combivent Respimat Inhaler] 2 puff INHALATION QID #1 inhaler Continue traMADol HCL [Ultram] 50 mg PO TID PRN PRN Reason: Pain oxyCODONE-APAP 10-325MG [Percocet 10-325 mg] 1 tab PO DAILY PRN PRN Reason: Pain rOPINIRole HCL [Requip] 1 mg PO HS Zolpidem [Ambien] 10 mg PO HS Zolpidem Tartrate [Ambien] 5 mg PO HS PRN PRN Reason: Insomnia Phentermine HCl [Adipex-P] 37.5 mg PO QAM@0900 Levothyroxine Sodium [Synthroid] 50 mcg PO DAILY Potassium Chloride [Klor-Con 20] 20 meq PO DAILY Furosemide [Lasix] 40 mg PO DAILY FLUoxetine HCL [PROzac] 20 mg PO DAILY Atenolol [Tenormin] 25 mg PO DAILY Febuxostat [Uloric] 40 mg PO DAILY Discharge Medication List Atenolol [Tenormin] 25 mg PO DAILY 03/21/18 [History] FLUoxetine HCL [PROzac] 20 mg PO DAILY 03/21/18 [History] Febuxostat [Uloric] 40 mg PO DAILY 03/21/18 [History] Furosemide [Lasix] 40 mg PO DAILY 03/21/18 [History] Levothyroxine Sodium [Synthroid] 50 mcg PO DAILY 03/21/18 [History] Phentermine HCl [Adipex-P] 37.5 mg PO QAM@0900 03/21/18 [History] Potassium Chloride [Klor-Con 20] 20 meq PO DAILY 03/21/18 [History] Zolpidem Tartrate [Ambien] 5 mg PO HS PRN 03/21/18 [History] Zolpidem [Ambien] 10 mg PO HS 03/21/18 [History] oxyCODONE-APAP 10-325MG [Percocet 10-325 mg] 1 tab PO DAILY PRN 03/21/18 [ History] rOPINIRole HCL [Requip] 1 mg PO HS 03/21/18 [History] traMADol HCL [Ultram] 50 mg PO TID PRN 03/21/18 [History] Aspirin 81 mg PO DAILY chew 03/23/18 [Rx] Atorvastatin [Lipitor] 40 mg PO HS #30 tab 03/23/18 [Rx] Azithromycin [Zithromax Z-pack] 0 mg PO DIRECTED #6 tab 03/23/18 [Rx] Benzonatate [Tessalon Perles] 200 mg PO TID #21 cap 03/23/18 [Rx] Budesonide/Formoterol Fumarate [Symbicort 160-4.5 Mcg Inhaler] 2 puff INHALATION BID #1 inhaler 03/23/18 [Rx] Clopidogrel [Plavix] 75 mg PO DAILY #30 tab 03/23/18 [Rx] Ipratropium/Albuterol Sulfate [Combivent Respimat Inhaler] 2 puff INHALATION QID #1 inhaler 03/23/18 [Rx] Nitroglycerin Sl Tabs [Nitrostat] 0.4 mg SUBLINGUAL Q5M PRN #25 tab 03/23/18 [Rx ] Follow up Appointment(s)/Referral(s): [facility] [Provider Group] - 2 Weeks Karina Reece MD [STAFF PHYSICIAN] - 1 Week Nura Forbes DO [Primary Care Provider] - 1 Week Activity/Diet/Wound Care/Special Instructions: Soft food diet and thickened liquids until seen by Dr. Reece.
[2018-03-24] MEDS ORDERED: ATORVASTATIN 40 MG TAB PO SCH (09:00)
[2018-03-24] MEDS ORDERED: CLOPIDOGREL 75 MG TAB PO SCH (09:00)
[2018-03-24] MEDS ORDERED: ASPIRIN 81 MG PO SCH (09:00)
== END 2018-03-23 16:43 | disposition home or self-care (01) | DRG 204 ==
LOC: EC 20:58 → 6SEL 03-22 00:50
PROVIDERS: ADMIT Family Medicine; ATTEND Family Medicine
PROC: B2151ZZ Fluoroscopy of Left Heart using Low Osmolar Contrast (ICD-10-PCS; principal; 2018-03-23 09:04)
PROC: B2111ZZ Fluoroscopy of Multiple Coronary Arteries using Low Osmolar Contrast (ICD-10-PCS; principal; 2018-03-23 09:04)
PROC: 4A023N7 Measurement of Cardiac Sampling and Pressure, Left Heart, Percutaneous Approach (ICD-10-PCS; principal; 2018-03-23 09:04)
DX: R06.09 Other forms of dyspnea (principal); D72.829 Elevated white blood cell count, unspecified; E03.9 Hypothyroidism, unspecified; E78.5 Hyperlipidemia, unspecified; F17.200 Nicotine dependence, unspecified, uncomplicated; F34.1 Dysthymic disorder; I08.1 Rheumatic disorders of both mitral and tricuspid valves; I12.9 Hypertensive chronic kidney disease with stage 1 through stage 4 chronic kidney disease, or unspecified chronic kidney disease; K21.9 Gastro-esophageal reflux disease without esophagitis; M51.9 Unspecified thoracic, thoracolumbar and lumbosacral intervertebral disc disorder; R61 Generalized hyperhidrosis; G25.81 Restless legs syndrome; Z98.1 Arthrodesis status; M79.7 Fibromyalgia; N18.3 Chronic kidney disease, stage 3 (moderate); R13.10 Dysphagia, unspecified; Z79.899 Other long term (current) drug therapy; Z80.49 Family history of malignant neoplasm of other genital organs; Z82.3 Family history of stroke; Z82.49 Family history of ischemic heart disease and other diseases of the circulatory system; Z82.5 Family history of asthma and other chronic lower respiratory diseases; Z79.890 Hormone replacement therapy; Z79.891 Long term (current) use of opiate analgesic; Z88.8 Allergy status to other drugs, medicaments and biological substances
CPT/HCPCS: 36415; 71046; 71275; 80048; 80053; 80061; 82550; 82553; 83880; 84484; 85025; 85379; 85610; 85730; 93005; 93306; 93458; 96365; 96366; 96375; 96376; 99291

== ENCOUNTER → 2018-04-05 | Outpatient (CLI) | payer MEDICARE ==
[2018-04-05 16:14] LABS: HCT 23.3 % (34.0-46.0); MCH 30.6 pg (25.0-35.0); MCHC 33.4 g/dL (31.0-37.0); Mean Platelet Volume 7.5; Platelet Count 313 k/uL (150-450); RBC 2.54 m/uL (3.80-5.40); RDW 15.4 % (11.5-15.5); WBC 10.1 k/uL (3.8-10.6)
[2018-04-05 16:20] LABS: HGB 7.8 gm/dL (11.4-16.0); MCV 91.7 fL (80.0-100.0)
[2018-04-05 17:55] LABS: Erythrocyte Sedimentation Rate 37 mm/hr (0-20)
== END | disposition home or self-care (01) ==
LOC: LABWHC1 15:45
PROVIDERS: ATTEND Internal Medicine Cardiovascular Disease
DX: R06.02 Shortness of breath (principal)
CPT/HCPCS: 36415; 84484; 85027; 85652; 86140

== ENCOUNTER 2018-04-12 10:05 | Day surgery (SDC) | payer MEDICARE ==
[2018-04-07 12:20] VITALS: BMI 27.6
[~2018-04-12 10:05] MED LIST: LACTATED RINGERS 1,000 ML IV SCH; LIDOCAINE 1% 20 ML VIAL (10MG/ML) FOR IV START INTRADERMA PRN; MIDAZOLAM 2 MG/2 ML VIAL IV PRN
[2018-04-12 11:04] VITALS: TEMP 97.2
[2018-04-12] MEDS ORDERED: fentaNYL (PF) 50 MCG/ML 2 ML AMP ONE (11:36)
[2018-04-12] MEDS ORDERED: PROPOFOL 10 MG/ML 20 ML VIAL IV ONE (11:36)
[2018-04-12] MEDS ORDERED: LIDOCAINE 1% INJ 10MG/ML (20 ML MDV) ONE (11:36)
[2018-04-12 12:02] VITALS: RESP 18
--- NOTE | 2018-04-12 12:06 | P.PCN ---
Date of Procedure: 04/12/18 Procedure(s) Performed: Procedure: Esophagogastroduodenoscopy and biopsy Preoperative diagnosis: Dysphagia. Postoperative diagnosis: 1. Sliding hiatal hernia with no obvious esophagitis or complicated reflux disease. 2. Antral gastritis with multiple erosions and antral ulcers. 3. Multiple biopsies obtained from the duodenum, antrum and esophagus. Preparation sedation: Was provided by anesthesia. Brief clinical history: The patient is a 62-year-old female who was evaluated in the office because of dysphagia that has been progressing over the last 2 years. This is described mostly with solid food and pills. She has used Nexium as needed for heartburn. No other alarm symptoms. She was on Plavix and aspirin because of her heart and apparently noted black and bloody stools within the last week or 2 and stopped her medications. Procedure: With the patient on her left lateral decubitus position and after informed consent and adequate sedation, I passed the Olympus-GIF 160 video upper endoscope through the cricopharyngeus down the esophagus. GE junction was around 35-36 cm from the incisors and there was a small sliding hiatal hernia but no obvious esophagitis or complicated reflux disease. The endoscope was then passed into the stomach which was insufflated with air and inspected in detail including the retroflex view in the cardia. There was mottling and erythema in the antrum and there were multiple ulcerations, 1 close to 1.5 cm in size, covered with white exudate and there was another longitudinal ulcer and few erosions but no spontaneous bleeding. Pyloric channel did not show any ulcers. Duodenal bulb, post bulbar area and descending duodenum appeared within normal limits. Because of her symptoms, I obtained biopsies from the duodenum, antrum and esophagus then the endoscope was withdrawn. The patient tolerated the procedure well. Plan: The patient was reassured. She will continue Protonix which was started when she was in the office. We would keep you updated on her progress.
[2018-04-12 12:32] VITALS: BP 119/77; PULSE 60
== END 2018-04-12 13:01 | disposition home or self-care (01) ==
LOC: ORWHC2ENDO 10:05
DX: K25.9 Gastric ulcer, unspecified as acute or chronic, without hemorrhage or perforation (principal); K44.9 Diaphragmatic hernia without obstruction or gangrene; K29.50 Unspecified chronic gastritis without bleeding; K20.9 Esophagitis, unspecified; R13.10 Dysphagia, unspecified
CPT/HCPCS: 88305; 43239; J2001; J3010; J2704

== ENCOUNTER → 2018-05-03 | Outpatient (CLI) | payer MEDICARE ==
--- NOTE | 2018-05-03 19:03 | US ---
EXAMINATION TYPE: US venous doppler duplex LE BI DATE OF EXAM: 05/03/2018 6:37 PM COMPARISON: NONE CLINICAL HISTORY: I73.9 Peripheral vascular disease. Bilateral leg pain and edema. SIDE PERFORMED: Bilateral TECHNIQUE: The lower extremity deep venous system is examined utilizing real time linear array sonog pilar with graded compression, doppler sonography and color-flow sonography. VESSELS IMAGED: External Iliac Vein (EIV) Common Femoral Vein Deep Femoral Vein Greater Saphenous Vein * Femoral Vein Popliteal Vein Small Saphenous Vein * Proximal Calf Veins (* superficial vessels) Right Leg: Negative for DVT Left Leg: Negative for DVT No evidence of DVT bilateral legs. IMPRESSION: Normal bilateral leg duplex venous sonogram.
== END | disposition home or self-care (01) ==
LOC: RADUSMAIN 17:50
PROVIDERS: ATTEND Family Medicine
DX: I73.9 Peripheral vascular disease, unspecified (principal); M79.661 Pain in right lower leg; M79.662 Pain in left lower leg
CPT/HCPCS: 93970

== ENCOUNTER 2018-05-04 11:30 | Emergency (ER) | payer MEDICARE ==
[2018-05-04 11:52] VITALS: BP 139/83; PULSE 74; RESP 16; TEMP 97.5
--- NOTE | 2018-05-04 12:54 | ED ---
General Adult HPI - General Chief complaint: Fall Stated complaint: Fall Time Seen by Provider: 05/04/18 12:39 Source: patient, RN notes reviewed Mode of arrival: wheelchair Limitations: no limitations - History of Present Illness Initial comments: Patient is a 62-year-old female presented to the emergency room today with a chief complaint of a fall occurred yesterday. She does admit that she was in her kitchen and believes that her cane got stuck on something causing her to lose her balance and fall down. She states she went down on her knees rales onto the right shoulder. She states that she was able get herself back up. There is no loss consciousness and no head injury. Patient says she is not on any blood thinners. Patient does admit to a second fall just approximately an hour later when she was going to the bathroom losing her balance due to pain in the right arm and having a difficult time using the cane falling down onto her back. She does admit to pain to her tailbone. Patient again denies any head injury or loss conscious. Denies any other complaints. Patient denies any recent fever, chills, shortness of breath, chest pain, back pain, abdominal pain , nausea or vomiting, dysuria or hematuria, constipation or diarrhea, headaches or visual changes, or any other complaints. - Related Data Home Medications Medication Instructions Recorded Confirmed Atenolol [Tenormin] 25 mg PO DAILY 03/21/18 04/12/18 FLUoxetine HCL [PROzac] 20 mg PO DAILY 03/21/18 04/12/18 Febuxostat [Uloric] 40 mg PO DAILY 03/21/18 04/12/18 Furosemide [Lasix] 40 mg PO DAILY 03/21/18 04/12/18 Levothyroxine Sodium [Synthroid] 50 mcg PO DAILY 03/21/18 04/12/18 Potassium Chloride [Klor-Con 20] 20 meq PO DAILY 03/21/18 04/12/18 Zolpidem Tartrate [Ambien] 5 mg PO HS PRN 03/21/18 04/12/18 oxyCODONE-APAP 10-325MG [Percocet 1 tab PO DAILY PRN 03/21/18 04/12/18 10-325 mg] Biotin 5,000 mcg PO DAILY 04/07/18 04/12/18 Coconut Oil 1 tab PO DAILY 04/07/18 L.acidoph,Paracasei, B.lactis 1 each PO DAILY 04/07/18 04/12/18 [Probiotic] LORazepam [Ativan] 0.5 mg PO BID PRN 04/07/18 04/12/18 Meloxicam 15 mg PO PC-TID 04/07/18 04/12/18 Multivit/Folic Acid/Vit K1 1 each PO DAILY 04/07/18 04/12/18 [One-A-Day Women's 50 Plus Tab] Previous Rx's Medication Instructions Recorded Aspirin 81 mg PO DAILY chew 03/23/18 Budesonide/Formoterol Fumarate 2 puff INHALATION BID #1 inhaler 03/23/18 [Symbicort 160-4.5 Mcg Inhaler] Clopidogrel [Plavix] 75 mg PO DAILY #30 tab 03/23/18 Ipratropium/Albuterol Sulfate 2 puff INHALATION QID #1 inhaler 03/23/18 [Combivent Respimat Inhaler] Nitroglycerin Sl Tabs [Nitrostat] 0.4 mg SUBLINGUAL Q5M PRN #25 tab 03/23/18 Allergies Allergy/AdvReac Type Severity Reaction Status Date / Time bupropion HCl Allergy Rash/Hives Verified 05/04/18 11:53 [From Wellbutrin] diclofenac potassium Allergy Anaphylaxis Verified 05/04/18 11:53 [From Cataflam] duloxetine HCl Allergy Rash/Hives Verified 05/04/18 11:53 [From Cymbalta] gabapentin [From Neurontin] Allergy Rash/Hives Verified 05/04/18 11:53 Latex, Natural Rubber Allergy Itching Verified 05/04/18 11:53 paroxetine HCl [From Paxil] Allergy Rash/Hives Verified 05/04/18 11:53 tramadol Allergy Unknown Verified 05/04/18 11:53 Review of Systems ROS Statement: Those systems with pertinent positive or pertinent negative responses have been documented in the HPI. ROS Other: All systems not noted in ROS Statement are negative. Past Medical History Past Medical History: GERD/Reflux, Hyperlipidemia, Hypertension, Pneumonia, Thyroid Disorder Additional Past Medical History / Comment(s): ruptured disc. History of Any Multi-Drug Resistant Organisms: None Reported Past Surgical History: Orthopedic Surgery Additional Past Surgical History / Comment(s): c4, c5, c6 fusion. Past Anesthesia/Blood Transfusion Reactions: No Reported Reaction, Motion Sickness Past Psychological History: Depression Smoking Status: Current every day smoker - Past Family History Father History Unknown: Yes Family Medical History: CVA/TIA, Pulmonary Embolus Additional Family Medical History / Comment(s): Father of a CVA in his 80s. Mother Family Medical History: Cancer, Coronary Artery Disease (CAD), Hyperlipidemia, Hypertension Additional Family Medical History / Comment(s): Mother had uterine cancer with surgery. She at the age of 87yrs. Brother(s) History Unknown: Yes Sister(s) Family Medical History: Coronary Artery Disease (CAD) Daughter(s) Family Medical History: Asthma Son(s) History Unknown: Yes General Exam - General Exam Comments Initial Comments: General: The patient is awake and alert, in no distress, and does not appear acutely ill. Eye: Pupils are equal, round and reactive to light, extra-ocular movements are intact. No nystagmus. There is normal conjunctiva bilaterally. No signs of icterus. Ears, nose, mouth and throat: There are moist mucous membranes and no oral lesions. Neck: The neck is supple, there is no tenderness or JVD. Cardiovascular: There is a regular rate and rhythm. No murmur, rub or gallop is appreciated. Respiratory: Lungs are clear to auscultation, respirations are non-labored, breath sounds are equal. No wheezes, stridor, rales, or rhonchi. Musculoskeletal: Limited range of motion of the right shoulder. Does have tenderness over the proximal humerus. No tenderness to cervical, thoracic spine. No tenderness down to the lumbar spine to the L5-S1 area. Patient has full range of motion of right elbow, right wrist is able to flex and extend. Radial pulse 2+. Sensation intact. Neurological: A&O x 3. CN II-XII intact, There are no obvious motor or sensory deficits. Coordination appears grossly intact. Speech is normal. Skin: Skin is warm and dry and no rashes or lesions are noted. Psychiatric: Cooperative, appropriate mood & affect, normal judgment. Limitations: no limitations Course Vital Signs 05/04/18 11:49 Temperature 97.5 F L Pulse Rate 74 Respiratory 16 Rate Blood Pressure 139/83 O2 Sat by Pulse 100 Oximetry Medical Decision Making - Medical Decision Making X-rays reviewed and does show a proximal humerus nondisplaced fracture. Patient 's been placed in arm sling here. X-rays of the lumbar spine are negative for any acute abnormality. Results were discussed with the patient. Patient will be discharged home to follow-up with orthopedics. Advised to return for any other concerns. Disposition Clinical Impression: Proximal humeral fracture, Coccyx contusion, Fall Disposition: HOME SELF-CARE Condition: Good Instructions: Arm Fracture in Adults (ED) Additional Instructions: Please follow-up with orthopedics over the next 3-5 days. Please use arm sling when up and moving around for comfort. Please return to emergency room if the symptoms increase or worsen or for any other concerns. Is patient prescribed a controlled substance at d/c from ED?: No Referrals: Nura Forbes DO [Primary Care Provider] - 1-2 days Juan Barton MD [STAFF PHYSICIAN] - 1-2 days Time of Disposition: 13:40
--- NOTE | 2018-05-04 13:25 | XR ---
EXAMINATION TYPE: XR shoulder complete RT DATE OF EXAM: 05/04/2018 COMPARISON: NONE HISTORY: Pain TECHNIQUE: Shoulder examined in 3 views FINDINGS: The humeral head articulates with the glenoid. The acromio-clavicular junction is normal. No displaced fractures are evident. However, there is a lucency in an oblique projection from the gre ater tuberosity towards the proximal metaphysis medial humerus. Longitudinal fracture with extension towards the greater tuberosity may be present. CT of the right shoulder complete performed for confir mation. A follow up study can be performed 7-10 days from acute trauma for continued pain. IMPRESSION: 1. There may be an occult fracture within the proximal metaphysis right humerus which appears nondisp laced and incomplete. CT could be performed for additional evaluation.
--- NOTE | 2018-05-04 13:26 | XR ---
EXAMINATION TYPE: XR lumbosacral spine min 4V DATE OF EXAM: 05/04/2018 COMPARISON: NONE HISTORY: Pain fall TECHNIQUE: Five-view lumbar spine FINDINGS: There 5 lumbar-type vertebral bodies. The pedicles are intact. Right facets are normal. Lef t facets had limited evaluation due to degree of rotation. Disc heights are preserved. Vertebral body heights are preserved. IMPRESSION: 1. Visualized lumbar spine appears unremarkable. No acute osseous abnormality evident.
== END 2018-05-04 13:53 | disposition home or self-care (01) ==
LOC: EC 11:30
DX: S42.201A Unspecified fracture of upper end of right humerus, initial encounter for closed fracture (principal); S30.0XXA Contusion of lower back and pelvis, initial encounter; I10 Essential (primary) hypertension; E07.9 Disorder of thyroid, unspecified; F32.9 Major depressive disorder, single episode, unspecified; F17.200 Nicotine dependence, unspecified, uncomplicated; Z79.1 Long term (current) use of non-steroidal anti-inflammatories (NSAID); Z79.899 Other long term (current) drug therapy; Z88.5 Allergy status to narcotic agent; Z88.6 Allergy status to analgesic agent; Z88.8 Allergy status to other drugs, medicaments and biological substances; Z91.040 Latex allergy status; W18.39XA Other fall on same level, initial encounter; Y92.009 Unspecified place in unspecified non-institutional (private) residence as the place of occurrence of the external cause
CPT/HCPCS: 72110; 99283

== ENCOUNTER → 2018-05-27 | Outpatient (CLI) | payer MEDICARE ==
--- NOTE | 2018-05-27 20:35 | MR ---
EXAMINATION TYPE: MR tspine/lspine wo con DATE OF EXAM: 05/27/2018 COMPARISON: Lumbar spine x-ray May 04, 2018. Lumbar spine MRI April 10, 2016. CTA chest April 03, 2018. HISTORY: Back Pain, Falling, Unsteady [place] TECHNIQUE: Multiplanar, multisequence imaging of the thoracic and lumbar spine are performed without IV contrast. FINDINGS: T-SPINE: FINDINGS: Coronal images redemonstrate S-shaped scoliosis levoconvex in the upper thoracic spine and curvature dextroconvex in the mid thoracic spine in curvature. Spinal cord shows normal course, rush gunnar, and signal as it courses the thoracic spine. Vertebral body heights and alignment are satisfact ory. Disc space heights are fairly well maintained. No large posterior disc herniations are seen on s agittal images. There are hemangiomas noted at the T4 and T5 vertebra on sagittal images 7 and 8 resp ectively. Review of the axial images shows no significant spinal canal stenosis or neural foraminal narrowing a t any thoracic level. No suspicious findings are seen in visualized portion of the thorax or upper a bdomen. IMPRESSION: S-shaped scoliosis otherwise fairly unremarkable study. L-SPINE: Sagittal images of the lumbar spine show vertebral body heights and alignment to appear satisfactory. There is multilevel disc desiccation redemonstrated but disc space heights are fairly well-maintaine d. No larger or new posterior disc herniations are seen on sagittal images. The conus medullaris is s table and slightly high in position ending at mid T12 level without abnormal signal or clumping of jose mbosacral nerve roots. The bone marrow signal intensity is within normal limits. No significant spur ring is present. Axial images show the T12-L1 and L1-L2 levels to remain within normal limits. Axial images at L2-L3 and L3-L4 levels show mild facet degenerative changes bilaterally but spinal ca nal is preserved and bilateral neural foramina are patent. No significant progression from prior. Axial images at L4-L5 level show mild to moderate facet degenerative changes and ligamenta flava hype rtrophy with broad-based posterior disc protrusion. There is mild effacement of the anterior and post erior lateral thecal sac and axial image 8. Bilateral neural foramina are patent. No significant corey ge from prior. Axial images at L5-S1 level mild facet degenerative change bilaterally. Spinal canal is preserved. Bi lateral neural foramina is patent. Suspected artifact is seen on axial image 1 in the left upper pelvis. No suspicious retroperitoneal f indings are identified. IMPRESSION: Multilevel facet arthropathy mid to lower lumbar spine. No significant new or suspicious finding identified from prior MRI.
== END | disposition home or self-care (01) ==
LOC: RADMRIMAIN 14:44
PROVIDERS: ATTEND Psychiatry & Neurology Neurology
DX: M46.86 Other specified inflammatory spondylopathies, lumbar region (principal); M41.9 Scoliosis, unspecified; M54.6 Pain in thoracic spine; Z88.6 Allergy status to analgesic agent; Z91.040 Latex allergy status; Z88.8 Allergy status to other drugs, medicaments and biological substances; Z88.5 Allergy status to narcotic agent
CPT/HCPCS: 72146; 72148

== ENCOUNTER → 2018-10-27 | Outpatient (CLI) | payer MEDICARE ==
--- NOTE | 2018-10-28 05:58 | MR ---
EXAMINATION TYPE: MR shoulder RT wo con DATE OF EXAM: 10/27/2018 COMPARISON: HISTORY: Rt shoulder pain, S/P fall x 2 in summer, hx fractured forearm TECHNIQUE: Multiplanar, multisequence imaging of the right shoulder is performed without contrast. FINDINGS: There is shoulder joint effusion. There is extensive abnormal increased signal in a large area of the greater tuberosity of the humerus consistent with large comminuted nondisplaced chip fracture. This area measures 3.5 x 1.3 cm. The subscapularis tendon is intact. Biceps tendon is intact. There is a l arge rotator cuff tear with full-thickness defect through the supraspinatus tendon. There is no retra ction of the tendon. There is oblique linear area of increased signal in the humeral neck that could relate to an underlying nondisplaced fracture. The visualized scapula appears intact. The AC joint is intact. IMPRESSION: Large nondisplaced fracture of the greater tuberosity of the humerus. Possible hairline nondisplaced fracture of the humeral neck. Full-thickness rotator cuff tear of the supraspinatus tendon. Mild shoulder joint effusion.
== END | disposition home or self-care (01) ==
LOC: RADMRIMAIN 21:12
PROVIDERS: ATTEND Family Medicine
DX: S42.254A Nondisplaced fracture of greater tuberosity of right humerus, initial encounter for closed fracture (principal); M75.121 Complete rotator cuff tear or rupture of right shoulder, not specified as traumatic

== ENCOUNTER → 2018-12-12 | Outpatient (CLI) | payer MEDICARE ==
--- NOTE | 2018-12-12 13:26 | US ---
EXAMINATION TYPE: US pelvis complete transvag DATE OF EXAM: 12/12/2018 COMPARISON: NONE CLINICAL HISTORY: N93.9 Vaginal Bleeding. black discharge for the past few weeks TECHNIQUE: TA/TV. Transabdominal sonographic images of the pelvis were acquired. Transvaginal sono graphic images were medically necessary to better assess the following anatomy: Uterus/endometrium Date of LMP: 10 yrs ago EXAM MEASUREMENTS: Uterus: 5.4 x 3.7 x 3.3 cm Endometrial Stripe: 0.3 cm Right Ovary: N/A cm Left Ovary: N/A cm 1. Uterus: Retroverted multiple fibroids seen, largest = 2.4cm 2. Endometrium: wnl 3. Right Ovary: not seen due to bowel gas and atrophy 4. Left Ovary: not seen due to bowel gas and atrophy 5. Bilateral Adnexa: wnl 6. Posterior cul-de-sac: wnl IMPRESSION: multiple fibroids
== END ==
LOC: RADUSWWP 12:20
PROVIDERS: ATTEND Family Medicine
DX: D25.9 Leiomyoma of uterus, unspecified (principal)
CPT/HCPCS: 76830; 76856

== ENCOUNTER 2019-02-16 09:24 | Day surgery (SDC) | payer MEDICARE ==
[2019-02-14 17:32] VITALS: BMI 25.7
--- NOTE | 2019-02-15 17:38 | HP ---
HISTORY AND PHYSICAL DATE OF SURGERY: 02/16/2019 Rosangela Mike is a 63-year-old patient seen with progressive right shoulder pain. We discussed options. She elected to proceed with arthroscopy. Consent was obtained. Medical clearance was provided by Dr. Forbes. PAST MEDICAL HISTORY: 1. Hypertension. 2. Gastroesophageal reflux disease. 3. Fibromyalgia. PAST SURGICAL HISTORY: 1. Tubal ligation. 2. Colonoscopy. 3. Cervical spine surgery. DAILY MEDICATIONS: 1. Antihypertensive. 2. Nexium. 3. Percocet. ALLERGIES: 1. NEURONTIN. 2. PAXIL. SOCIAL HISTORY: She denies current tobacco use. PHYSICAL EXAMINATION OF RIGHT SHOULDER: Flexion 90 degrees, abduction 70 degrees, external rotation 20 degrees with pain and weakness. There is tenderness along the anterolateral acromion and rotator cuff insertion site. Impingement sign is positive at 90 degrees. Drop-arm sign is positive. Distal neurovascular exam is intact. RADIOGRAPHS: Radiographs of the right shoulder revealed a type 2 anterior acromion, evidence for acromioclavicular joint osteoarthritis and cystic changes of the tuberosity. A right shoulder MRI revealed an old tuberosity fracture and rotator cuff tear. IMPRESSION: 1. Right shoulder impingement with rotator cuff tear. 2. History of right shoulder tuberosity fracture. 3. Hypertension. PLAN: Right shoulder arthroscopy with subacromial decompression, probable arthroscopic rotator cuff repair, possible Jen procedure and debridement. MMODL / IJN: [id number] /
[~2019-02-16 09:24] MED LIST changes: +DEXAMETHASONE SOD PHOSPHATE 10 MG/ML 1 ML VIAL IV ONE; +HYDROmorphone 0.5 MG/0.5 ML SYRINGE IVP PRN; +MIDAZOLAM (PF) 2 MG/2 ML VIAL IV PRN; -MIDAZOLAM 2 MG/2 ML VIAL IV PRN; +ONDANSETRON 4 MG/2 ML VIAL IVP ONE; +SCOPOLAMINE 1.5MG/72HR PATCH TRANSDERM ONE; +ceFAZolin 1,000 MG in DEXTROSE/WATER 1 50ML.BAG IVPB ONE
[2019-02-16] MEDS ORDERED: LIDOCAINE 1% INJ 10MG/ML (20 ML MDV) ONE (11:28)
[2019-02-16] MEDS ORDERED: SUCCINYLCHOLINE CHLORIDE 100 MG/5 ML SYR IV ONE (11:28)
[2019-02-16] MEDS ORDERED: MIDAZOLAM 2 MG/2 ML VIAL ONE (11:28)
[2019-02-16] MEDS ORDERED: PROPOFOL 10 MG/ML 20 ML VIAL IV ONE (11:28)
[2019-02-16] MEDS ORDERED: ROPIVACAINE 5 MG/ML 30 ML VIAL ONE (11:28)
[2019-02-16] MEDS ORDERED: fentaNYL (PF) 50 MCG/ML 2 ML AMP ONE (11:28)
[2019-02-16] MEDS ORDERED: DEXAMETHASONE SOD PHOSPHATE 4 MG/ML 1 ML VIAL ONE (11:28)
--- NOTE | 2019-02-16 12:38 | P.ONQ ---
Anesthesiology Proc Note - PNB - Peripheral Nerve Block Performed Right Interscalene Single Time Out Performed: Yes Procedure Start Time: 11:14 Procedure Stop Time: :20 Indication: Acute Post-Operative Pain, Requested by physician Sedation Type: Sedate with meaningful contact maintained Preparation: Sterile Prep Position: Supine Needle Size: 50mm (2") Needle Gauge: 21 Technique: Ultrasound Injectate: 0.5% Ropivacaine (see comment for volume) (ropi .5% 30cc plus dexamethasone 4mg) Blood Aspirated: No Pain Paresthesia on Injection Noted: No Resistance on Injection: Normal Events: Uneventful and Well Tolerated
[2019-02-16 12:56] VITALS: TEMP 97.2
--- NOTE | 2019-02-16 12:58 | P.OP ---
Date of Procedure: 02/16/19 Preoperative Diagnosis: Right shoulder impingement Postoperative Diagnosis: 1. Right shoulder rotator cuff tear 2. Right shoulder impingement 3. Right shoulder acromioclavicular joint osteoarthritis 4. Right shoulder partial long head biceps tendon Procedure(s) Performed: 1. Right shoulder arthroscopic rotator cuff repair 2. Right shoulder arthroscopic subacromial decompression 3. Right shoulder arthroscopic Jen procedure 4. Right shoulder arthroscopic biceps tenotomy Implants: 1Arthrex 5.5 swivel lock anchor Anesthesia: GETA, regional (Interscalene block) Surgeon: Joseph Hall Estimated Blood Loss (ml): 10 Pathology: none sent Condition: stable Disposition: PACU Indications for Procedure: 63-year-old patient seen with progressive right shoulder pain. After treatment options were discussed, she elected to proceed with arthroscopy. Operative Findings: see description of procedure Description of Procedure: Patient underwent an interscalene block by department of anesthesia for postoperative pain management. The patient was then taken to the operative suite. The patient underwent a general anesthetic by the department of anesthesia. The patient was placed into a lateral position and secured. There was appropriate padding of the bony prominence. Right shoulder was then prepped and draped in normal sterile orthopedic fashion. We placed the extremity in 10 pounds of longitudinal traction. A posterior incision was now made for a posterior working portal site. The trocar and cannula were inserted into the glenohumeral joint. Arthroscopy was initiated. Spinal needle was now inserted anteriorly, to ascertain the anterior working portal site. An incision was now made in that area, a trocar was inserted followed by a probe. There was some partial tearing long head biceps tendon. There were grade 1 chondromalacia changes with no osteochondral tears involving both the humeral head and glenoid. The labrum appeared stable. I could visualize the rotator cuff tendon tear from the glenohumeral joint. I performed an arthroscopic biceps tenotomy. Instruments were now removed from the glenohumeral joint. Utilizing the posterior working portal site, the trocar and cannula were inserted into the subacromial space. Arthroscopy initiated. I made an incision 2 fingerbreadths lateral to the acromion. I introduced my trocar followed by my ArthroCare ablator. I now began ablating thick subacromial bursal tissue, which exposed the undersurface of the anterior acromion. There was diminished subacromial space. There was a very prominent anterior acromion. A motorized bur was introduced and a subacromial decompression was performed. I also excised some osteophytes off the inferior aspect of the distal clavicle. The AC joint was visualized and noted to be fairly arthritic. The motorized bur was introduced in the anterior portal site and a Jen procedure was performed without difficulty, decompressing the AC joint nicely. I turned my attention to the rotator cuff. There was a 1 cm rotator cuff tear. I debrided the margins getting down to stable tendon tissue. The defect measured approximately 1.5 cm. I abraded the footprint with a motorized bur. I passed 2 everted mattress sutures through good bites of rotator cuff tendon. I repaired the tendon back to the footprint with one single 5.5 Arthrex swivel lock anchor. All residual suture limbs were now clipped. We had good compression of the tendon along the entire footprint. I injected 1 mL Renue intra-articular. Instruments now removed from the portal sites. All portal sites were approximated with nylon suture. Sterile dressings were applied followed by a shoulder sling. The patient was awakened, transferred to a bed, and taken to recovery in stable condition.
[2019-02-16 13:21] VITALS: RESP 16
[2019-02-16 14:22] VITALS: BP 131/82; PULSE 62
== END 2019-02-16 15:08 | disposition home or self-care (01) ==
LOC: OR 09:24
PROVIDERS: ATTEND Orthopaedic Surgery
DX: M75.101 Unspecified rotator cuff tear or rupture of right shoulder, not specified as traumatic (principal); M25.811 Other specified joint disorders, right shoulder; M19.011 Primary osteoarthritis, right shoulder; S46.111A Strain of muscle, fascia and tendon of long head of biceps, right arm, initial encounter; I25.10 Atherosclerotic heart disease of native coronary artery without angina pectoris; I10 Essential (primary) hypertension; E07.9 Disorder of thyroid, unspecified; F41.9 Anxiety disorder, unspecified; F32.9 Major depressive disorder, single episode, unspecified; K21.9 Gastro-esophageal reflux disease without esophagitis; Z79.890 Hormone replacement therapy; Z79.51 Long term (current) use of inhaled steroids; Z79.899 Other long term (current) drug therapy; Z88.5 Allergy status to narcotic agent; Z88.8 Allergy status to other drugs, medicaments and biological substances; Z91.040 Latex allergy status
CPT/HCPCS: 64415; 29827; 29826; 29824; C1713; C1765; J2250 ×2; J1100 ×2; J2405; J2001; J3010; J0690; J2795; J0330; J2704

== ENCOUNTER → 2019-05-05 | Outpatient (CLI) | payer MEDICARE ==
--- NOTE | 2019-05-05 12:51 | XR ---
EXAMINATION TYPE: XR knee 4V LT DATE OF EXAM: 05/05/2019 CLINICAL HISTORY: Left knee pain with no known injury TECHNIQUE: Weightbearing and nonweightbearing frontal and lateral views of the left knee were perform ed. COMPARISON: None. FINDINGS: There is no acute fracture/dislocation evident in the left knee. There is mild medial comp artment joint space narrowing and very small osteophytes of the inferior patellar pole and medial com partment. The overlying soft tissue appears unremarkable. No suprapatellar joint effusion. Extensor mechanism appears intact radiographically. IMPRESSION: 1. No acute fracture or dislocation in the left knee. 2. Very mild bicompartmental arthropathy.
== END | disposition home or self-care (01) ==
LOC: RADXRMAIN 12:14
PROVIDERS: ATTEND Family Medicine
DX: M12.862 Other specific arthropathies, not elsewhere classified, left knee (principal)

== ENCOUNTER → 2019-06-14 | Outpatient (CLI) | payer MEDICARE ==
--- NOTE | 2019-06-15 16:16 | MR ---
EXAMINATION TYPE: MR knee LT wo con DATE OF EXAM: 06/14/2019 COMPARISON: Outside radiographs 06/02/2019 HISTORY: 64-year-old female Left knee pain TECHNIQUE: Multiplanar, multisequence imaging of the left knee is performed without IV contrast. FINDINGS: The ACL, PCL are intact. Edema on either side of the intact MCL. Additional thickening and heterogeneous signal of the femoral insertion of the LCL proper and increas ed signal at the attachment site of the conjoined tendon. Extensive bone bruises are present within the distal femur and lateral aspect of the proximal tibia. There is a subchondral fracture measuring up to 1.8 cm wide and measuring up to 2.2 cm AP involving t he lateral femoral condyle. Extensive marrow edema is present here. Mild generalized thinning of milad cular cartilage in the lateral compartment with suggestion of more moderate irregular cartilage loss along the mid weightbearing aspect. Lateral meniscus is intact. There is some degenerative signal at the junction of the posterior horn and body of the medial menisc us without discrete meniscal tear. Mild generalized thinning of medial and patellofemoral compartment articular cartilage. Extensor mechanism is intact. Anterior subcutaneous soft tissue swelling and generalized deep soft tissue swelling likely in part d ue to extravasated joint fluid. There is a ruptured Zuñiga's cyst also demonstrated. Normal popliteal artery anatomy with mild generalized muscular atrophy. No suspicious bone marrow rep lacement. IMPRESSION: 1. Correlate as to mechanism of injury. There are multiple bone bruises and a large subchondral impac tion or insufficiency fracture involving the lateral femoral condyle. No significant articular surfac e depression or step-off. Extensive reactive marrow edema. 2. Moderate irregular cartilage loss along the mid weightbearing aspect of the lateral compartment. 3. Degenerative signal at the junction of the posterior horn and body of the medial meniscus without discrete meniscal tear. 4. Grade 1 MCL sprain. Additional grade 1 sprains of the proximal LCL proper and conjoined tendon ins ertion at the fibular head. Given these findings, correlate for concurrent posterolateral corner inju ry. 5. Extensive soft tissue swelling with extravasated joint fluid and a ruptured Zuñiga's cyst.
== END ==
LOC: RADMRIMAIN 13:25
PROVIDERS: ATTEND Orthopaedic Surgery
DX: M25.562 Pain in left knee (principal)

== ENCOUNTER → 2019-08-31 | Outpatient (CLI) | payer MEDICARE ==
[2019-08-31 18:55] LABS: HCT 41.3 % (34.0-46.0); MCH 29.4 pg (25.0-35.0); MCHC 31.4 g/dL (31.0-37.0); MCV 93.8 fL (80.0-100.0); Mean Platelet Volume 7.2; Platelet Count 335 k/uL (150-450); RDW 14.4 % (11.5-15.5); WBC 7.7 k/uL (3.8-10.6)
[2019-08-31 20:54] LABS: Band Neutrophils % 1 %; Eosinophils # (M) 0.23 k/uL (0-0.7); Lymphocytes # (M) 2.31 k/uL (1.0-4.8); Monocytes # (M) 0.23 k/uL (0-1.0); Neutrophils % (M) 63 %; Nucleated Red Blood Cells 0 /100 WBC (0-0); Total Cells Counted 100
[2019-08-31 20:55] LABS: Reactive Lymphocytes Present
[2019-08-31 23:50] LABS: T4, Free (Free Thyroxine) 1.4 ng/dL (0.80-1.80)
[2019-09-01 00:20] LABS: African American GFR (CKD) 90.9 (60.0-200.0); Albumin 4.4 g/dL (3.80-4.90); Albumin/Globulin Ratio 2.44 (1.60-3.17); Anion Gap 12.3 mmol/L (4.00-12.00); BUN/Creat Ratio 11.25 Ratio (12.00-20.00); Calcium 9.4 mg/dL (8.7-10.3); Carbon Dioxide 26.7 mmol/L (21.6-31.8); Globulin 1.8 g/dL (1.6-3.3); Potassium 4.2 mmol/L (3.5-5.5); Total Bilirubin 0.4 mg/dL (0.2-1.2); Total Protein 6.2 g/dL (6.2-8.2); Uric Acid 6.2 mg/dL (2.9-7.7)
[2019-09-01 01:42] LABS: Hemoglobin A1C 5.6 % (4.0-6.0)
== END | disposition home or self-care (01) ==
LOC: LABWHC1 16:35
PROVIDERS: ATTEND Family Medicine
DX: Z00.00 Encounter for general adult medical examination without abnormal findings (principal); E03.9 Hypothyroidism, unspecified; R73.9 Hyperglycemia, unspecified; E78.5 Hyperlipidemia, unspecified; M54.9 Dorsalgia, unspecified; G89.29 Other chronic pain
CPT/HCPCS: 36415; 80053; 83036; 84439; 84443; 84550; 85025; 85379

== ENCOUNTER → 2019-09-22 | Outpatient (CLI) | payer MEDICARE ==
--- NOTE | 2019-09-23 09:37 | US ---
EXAMINATION TYPE: US venous doppler duplex LE DATE OF EXAM: 09/22/2019 6:21 PM COMPARISON: US CLINICAL HISTORY: sharath lower ext, R79.1 positive D-dimer. recent bilateral ankle swelling; Prior ME, s moker SIDE PERFORMED: Bilateral TECHNIQUE: The lower extremity deep venous system is examined utilizing real time linear array sonog pilar with graded compression, doppler sonography and color-flow sonography. VESSELS IMAGED: Common Femoral Vein Deep Femoral Vein Greater Saphenous Vein * Femoral Vein Popliteal Vein Small Saphenous Vein * Proximal Calf Veins (* superficial vessels) Right Leg: Negative for DVT Left Leg: Negative for DVT IMPRESSION: No evidence of DVT bilaterally.
== END | disposition home or self-care (01) ==
LOC: RADUSMAIN 17:46
PROVIDERS: ATTEND Family Medicine
DX: R79.1 Abnormal coagulation profile (principal)
CPT/HCPCS: 93970

== ENCOUNTER → 2020-04-25 | Outpatient (CLI) | payer MEDICARE ==
--- NOTE | 2020-04-25 15:38 | XR ---
EXAMINATION TYPE: XR knee complete RT DATE OF EXAM: 04/25/2020 COMPARISON: None HISTORY: Pain TECHNIQUE: Three-view right knee FINDINGS: No acute fractures or dislocations are evident. Joint spaces are preserved. Soft tissues ar e normal. No joint effusion is evident. Follow-up studies can be performed 7-10 days from acute trauma for continued pain. IMPRESSION: 1. No acute osseous abnormality.
== END | disposition home or self-care (01) ==
LOC: RADXRMAIN 14:00
PROVIDERS: ATTEND Family Medicine
DX: M25.561 Pain in right knee (principal)

== ENCOUNTER → 2020-09-25 | Outpatient (CLI) | payer MEDICARE ==
--- NOTE | 2020-09-26 06:32 | MR ---
EXAMINATION TYPE: MR lumbar spine wo con DATE OF EXAM: 09/25/2020 COMPARISON: Lumbar spine April 10, 2016. HISTORY: Low back pain into sharath hips and lower extremities TECHNIQUE: Multiplanar, multisequence imaging of the lumbar spine is performed without IV contrast. FINDINGS: Sagittal images of the lumbar spine show vertebral body heights and alignment to remain sat isfactory. Multilevel disc desiccation but the disc space heights are maintained. The conus medullar is remains stable in position ending mid T12 level. The bone marrow signal intensity remains within normal limits. Mild multilevel anterior spurring. Axial images show T12-L1 and L1-L2 levels to appear within normal limits. Axial images at L2-L3 and L3-L4 levels show mild broad disc bulges and mild facet degenerative change s bilaterally. Minimal effacement of the anterior thecal sac is present. Patent bilateral neural fora geovanna. Axial images at the L4-L5 level moderate facet degenerative changes and ligamentum flavum hypertrophy . There is mild broad-based posterior disc protrusion. Mild effacement of the anterior and posterior lateral thecal sac. Mild left greater than right bilateral neural foraminal narrowing. Axial images at the L5-S1 level show [id number] facet degenerative change bilaterally. Spinal c anal is preserved. There are patent bilateral neuroforamina. Paraspinal muscle bulk is preserved. IMPRESSION: Fairly mild multilevel degenerative changes mid to lower lumbar spine. Slight interval pr ogression from 2016 study. No large disc herniation is evident.
== END | disposition home or self-care (01) ==
LOC: RADMRIMAIN 17:17
PROVIDERS: ATTEND Family Medicine
DX: M47.816 Spondylosis without myelopathy or radiculopathy, lumbar region (principal)
CPT/HCPCS: 72148

== ENCOUNTER → 2020-10-02 | Outpatient (CLI) | payer MEDICARE ==
--- NOTE | 2020-10-02 18:44 | XR ---
Bilateral hips HISTORY: M25.551, M25.552 2 views of each hip submitted and correlated to prior exam 02/07/2016 There is no significant interval change. Bone mineralization, joint spaces and alignment are stable. No fracture or dislocation. IMPRESSION: Stable exam. No significant arthropathy is evident. Hip MRI may be of benefit.
== END | disposition home or self-care (01) ==
LOC: RADXRMAIN 16:14
PROVIDERS: ATTEND Family Medicine
DX: M25.551 Pain in right hip (principal); M25.552 Pain in left hip
CPT/HCPCS: 73521

== ENCOUNTER 2020-12-05 15:42 | Inpatient (IN) | payer MEDICARE ==
--- NOTE | 2020-12-05 16:04 | ED ---
Abdominal Pain HPI - General Chief Complaint: Abdominal Pain Stated Complaint: Abd Pain Time Seen by Provider: 12/05/20 15:52 Source: patient Mode of arrival: wheelchair Limitations: no limitations - History of Present Illness Initial Comments: 65-year-old female presenting to the emergency department with chief complaint of abdominal pain. States the pain started about 3 days ago and is located in the upper abdominal region. States on the first day, she developed nausea with some nonbilious and nonbloody vomiting. States those symptoms have since resolved but she continues to have the pain. States the pain is worse whenever she is bending over. States sometimes the pain is severe that it starts to radiate in chest. Denies any associated shortness of breath. Did report having chills last night but denies any fevers. She does report history of constipation but says that she has been taking laxatives and has had bowel movements daily. Denies any constipation diarrhea at this time. Denies any urinary or vaginal symptoms. She does take Crowheart daily for chronic pain. Patient also complained of having a "bump" this started several days ago on the posterior aspect of her left thigh which she has been soaking with warm water and it is not draining. States it is not painful at this time. - Related Data Home Medications Medication Instructions Recorded Confirmed FLUoxetine HCL [PROzac] 40 mg PO DAILY 03/21/18 12/05/20 Furosemide [Lasix] 40 mg PO DAILY 03/21/18 12/05/20 Potassium Chloride [Klor-Con 20] 20 meq PO DAILY 03/21/18 12/05/20 atenoloL [Tenormin] 25 mg PO DAILY 03/21/18 12/05/20 Esomeprazole Magnesium [NexIUM] 40 mg PO DAILY 02/14/19 12/05/20 Allopurinol [Zyloprim] 100 mg PO DAILY 12/05/20 12/05/20 HYDROcodone/APAP 10-325MG [Crowheart 1 tab PO TID PRN 12/05/20 12/05/20 10-325] Allergies Allergy/AdvReac Type Severity Reaction Status Date / Time bupropion HCl Allergy Rash/Hives Verified 12/05/20 19:31 [From Wellbutrin] diclofenac potassium Allergy Anaphylaxis Verified 12/05/20 19:31 [From Cataflam] duloxetine HCl Allergy Rash/Hives Verified 12/05/20 19:31 [From Cymbalta] gabapentin [From Neurontin] Allergy Rash/Hives Verified 12/05/20 19:31 Latex, Natural Rubber Allergy Itching Verified 12/05/20 19:31 paroxetine HCl [From Paxil] Allergy Rash/Hives Verified 12/05/20 19:31 tramadol Allergy Unknown Verified 12/05/20 19:31 Review of Systems ROS Statement: Those systems with pertinent positive or pertinent negative responses have been documented in the HPI. ROS Other: All systems not noted in ROS Statement are negative. Past Medical History Past Medical History: GERD/Reflux, Hyperlipidemia, Hypertension, Myocardial Infarction (RI), Pneumonia, Thyroid Disorder Additional Past Medical History / Comment(s): ruptured disc. History of Any Multi-Drug Resistant Organisms: None Reported Past Surgical History: Orthopedic Surgery Additional Past Surgical History / Comment(s): c4, c5, c6 fusion. Past Anesthesia/Blood Transfusion Reactions: No Reported Reaction, Motion Sickness Past Psychological History: Depression Smoking Status: Current every day smoker Past Alcohol Use History: None Reported Past Drug Use History: None Reported - Past Family History Father History Unknown: Yes Family Medical History: CVA/TIA, Pulmonary Embolus Additional Family Medical History / Comment(s): Father of a CVA in his 80s. Mother Family Medical History: Cancer, Coronary Artery Disease (CAD), Hyperlipidemia, Hypertension Additional Family Medical History / Comment(s): Mother had uterine cancer with surgery. She at the age of 87yrs. Brother(s) History Unknown: Yes Sister(s) Family Medical History: Coronary Artery Disease (CAD) Daughter(s) Family Medical History: Asthma Son(s) History Unknown: Yes General Exam Limitations: no limitations General appearance: alert, in no apparent distress Head exam: Present: atraumatic, normocephalic, normal inspection Eye exam: Present: normal appearance, PERRL, EOMI Pupils: Present: normal accommodation ENT exam: Present: normal exam, normal oropharynx, mucous membranes moist, TM's normal bilaterally, normal external ear exam Neck exam: Present: normal inspection, full ROM. Absent: tenderness Respiratory exam: Present: normal lung sounds bilaterally. Absent: respiratory distress, wheezes, rales Cardiovascular Exam: Present: regular rate, normal rhythm, normal heart sounds GI/Abdominal exam: Present: soft, tenderness (Right upper quadrant tenderness. Positive Schulz sign.), normal bowel sounds. Absent: distended, guarding, rebound, rigid Extremities exam: Present: full ROM, normal capillary refill. Absent: normal inspection (Healing abscess noted on the posterior aspect of the left thigh), tenderness, pedal edema, joint swelling, calf tenderness Back exam: Present: normal inspection, full ROM. Absent: tenderness, CVA tenderness (R), CVA tenderness (L) Neurological exam: Present: alert, oriented X3 Psychiatric exam: Present: normal affect, normal mood Skin exam: Present: warm, dry, intact, normal color Course Vital Signs 12/05/20 12/05/20 12/05/20 15:45 17:39 18:52 Temperature 98.2 F Pulse Rate 100 80 72 Respiratory 18 18 19 Rate Blood Pressure 144/72 144/82 145/82 O2 Sat by Pulse 97 97 98 Oximetry Medical Decision Making - Medical Decision Making 65-year-old female presenting to the emergency department with chief complaint abdominal pain. On physical examination, patient has positive Schulz sign with some right upper quadrant tenderness. Patient has mild leukocytosis of 12.2 K. CMP unremarkable. Right upper quadrant ultrasound reveals gallstones with mild wall thickening. CT was also obtained which revealed an enlarged gallbladder positive for cholecystitis. Patient will be started on Zosyn. Since medical control for analgesia and antiemetics. Nothing by mouth. Patient will be admitted. Case discussed with Dr. Sims. Admitting physician is Dr. Dong - Lab Data Result diagrams: 12/05/20 16:20 12/05/20 16:20 Lab Results 12/05/20 12/05/20 12/05/20 Range/Units 16:20 16:20 16:20 WBC 12.2 H (3.8-10.6) k/uL RBC 4.77 (3.80-5.40) m/uL Hgb 14.1 (11.4-16.0) gm/dL Hct 43.1 (34.0-46.0) % MCV 90.4 (80.0-100.0) fL MCH 29.7 (25.0-35.0) pg MCHC 32.8 (31.0-37.0) g/dL RDW 14.8 (11.5-15.5) % Plt Count 264 (150-450) k/uL MPV 7.3 Neutrophils % Not Reportable Neutrophils % (Manual) 82 % Lymphocytes % Not Reportable Lymphocytes % (Manual) 15 % Monocytes % Not Reportable Monocytes % (Manual) 3 % Eosinophils % Not Reportable Basophils % Not Reportable Neutrophils # Not Reportable Neutrophils # (Manual) 10.00 H (1.3-7.7) k/uL Lymphocytes # Not Reportable Lymphocytes # (Manual) 1.83 (1.0-4.8) k/uL Monocytes # Not Reportable Monocytes # (Manual) 0.37 (0-1.0) k/uL Eosinophils # Not Reportable Basophils # Not Reportable Nucleated RBCs 0 (0-0) /100 WBC Manual Slide Review Performed RBC Morphology Normal Sodium 135 L (137-145) mmol/L Potassium 3.6 (3.5-5.1) mmol/L Chloride 103 (98-107) mmol/L Carbon Dioxide 23 (22-30) mmol/L Anion Gap 9 mmol/L BUN 9 (7-17) mg/dL Creatinine 0.78 (0.52-1.04) mg/dL Est GFR (CKD-EPI)AfAm >90 (>60 ml/min/1.73 sqM) Est GFR (CKD-EPI)NonAf 81 (>60 ml/min/1.73 sqM) Glucose 134 H (74-99) mg/dL Plasma Lactic Acid Conner (0.7-2.0) mmol/L Calcium 9.3 (8.4-10.2) mg/dL Total Bilirubin 1.2 (0.2-1.3) mg/dL AST 19 (14-36) U/L ALT 17 (4-34) U/L Alkaline Phosphatase 119 (38-126) U/L Troponin I <0.012 (0.000-0.034) ng/mL Total Protein 6.8 (6.3-8.2) g/dL Albumin 3.7 (3.5-5.0) g/dL Lipase 50 (23-300) U/L Urine Color Urine Appearance (Clear) Urine pH (5.0-8.0) Ur Specific [place] (1.001-1.035) Urine Protein (Negative) Urine Glucose (UA) (Negative) Urine Ketones (Negative) Urine Blood (Negative) Urine Nitrite (Negative) Urine Bilirubin (Negative) Urine Urobilinogen (<2.0) mg/dL Ur Leukocyte Esterase (Negative) Urine RBC (0-5) /hpf Urine WBC (0-5) /hpf Ur Squamous Epith Cells (0-4) /hpf Urine Bacteria (None) /hpf Hyaline Casts (0-2) /lpf Urine Mucus (None) /hpf 12/05/20 12/05/20 Range/Units 16:20 16:28 WBC (3.8-10.6) k/uL RBC (3.80-5.40) m/uL Hgb (11.4-16.0) gm/dL Hct (34.0-46.0) % MCV (80.0-100.0) fL MCH (25.0-35.0) pg MCHC (31.0-37.0) g/dL RDW (11.5-15.5) % Plt Count (150-450) k/uL MPV Neutrophils % Neutrophils % (Manual) % Lymphocytes % Lymphocytes % (Manual) % Monocytes % Monocytes % (Manual) % Eosinophils % Basophils % Neutrophils # Neutrophils # (Manual) (1.3-7.7) k/uL Lymphocytes # Lymphocytes # (Manual) (1.0-4.8) k/uL Monocytes # Monocytes # (Manual) (0-1.0) k/uL Eosinophils # Basophils # Nucleated RBCs (0-0) /100 WBC Manual Slide Review RBC Morphology Sodium (137-145) mmol/L Potassium (3.5-5.1) mmol/L Chloride (98-107) mmol/L Carbon Dioxide (22-30) mmol/L Anion Gap mmol/L BUN (7-17) mg/dL Creatinine (0.52-1.04) mg/dL Est GFR (CKD-EPI)AfAm (>60 ml/min/1.73 sqM) Est GFR (CKD-EPI)NonAf (>60 ml/min/1.73 sqM) Glucose (74-99) mg/dL Plasma Lactic Acid Conner 1.7 (0.7-2.0) mmol/L Calcium (8.4-10.2) mg/dL Total Bilirubin (0.2-1.3) mg/dL AST (14-36) U/L ALT (4-34) U/L Alkaline Phosphatase (38-126) U/L Troponin I (0.000-0.034) ng/mL Total Protein (6.3-8.2) g/dL Albumin (3.5-5.0) g/dL Lipase (23-300) U/L Urine Color Dark Yellow Urine Appearance Cloudy H (Clear) Urine pH 6.0 (5.0-8.0) Ur Specific [place] 1.030 (1.001-1.035) Urine Protein 1+ H (Negative) Urine Glucose (UA) Negative (Negative) Urine Ketones Negative (Negative) Urine Blood Small H (Negative) Urine Nitrite Negative (Negative) Urine Bilirubin Negative (Negative) Urine Urobilinogen 2.0 (<2.0) mg/dL Ur Leukocyte Esterase Trace H (Negative) Urine RBC 2 (0-5) /hpf Urine WBC 8 H (0-5) /hpf Ur Squamous Epith Cells 14 H (0-4) /hpf Urine Bacteria Few H (None) /hpf Hyaline Casts 19 H (0-2) /lpf Urine Mucus Many H (None) /hpf Disposition Clinical Impression: Acute cholecystitis Disposition: ADMITTED IP TO THIS HOSP Condition: Stable Is patient prescribed a controlled substance at d/c from ED?: No Referrals: Nura Forbes DO [Primary Care Provider] - 1-2 days Time of Disposition: 20:29
[2020-12-05] MEDS ORDERED: SODIUM CHLORIDE 0.9% 1,000 ML IV STA (16:06)
[2020-12-05] MEDS ORDERED: ONDANSETRON 4 MG/2 ML VIAL IVP STA (16:06)
[2020-12-05] MEDS ORDERED: PANTOPRAZOLE 40 MG/10 ML VIAL IVP STA (16:06)
[2020-12-05 16:41] LABS: ALT 17 U/L (4-34); AST 19 U/L (14-36); African American GFR (CKD) >90 (>60 ml/min/1.73 sqM); Albumin 3.7 g/dL (3.5-5.0); Alkaline Phosphatase 119 U/L (38-126); Anion Gap 9 mmol/L; Blood Urea Nitrogen 9 mg/dL (7-17); Calcium 9.3 mg/dL (8.4-10.2); Carbon Dioxide 23 mmol/L (22-30); Chloride 103 mmol/L (98-107); Glucose 134 mg/dL (74-99); Lipase 50 U/L (23-300); Non-African American GFR(CKD) 81 (>60 ml/min/1.73 sqM); Potassium 3.6 mmol/L (3.5-5.1); Sodium 135 mmol/L (137-145); Total Bilirubin 1.2 mg/dL (0.2-1.3); Total Protein 6.8 g/dL (6.3-8.2)
[2020-12-05 16:45] LABS: HCT 43.1 % (34.0-46.0); HGB 14.1 gm/dL (11.4-16.0); MCH 29.7 pg (25.0-35.0); MCHC 32.8 g/dL (31.0-37.0); MCV 90.4 fL (80.0-100.0); Mean Platelet Volume 7.3; Platelet Count 264 k/uL (150-450); RBC 4.77 m/uL (3.80-5.40); RDW 14.8 % (11.5-15.5); WBC 12.2 k/uL (3.8-10.6)
[2020-12-05 16:54] LABS: Appearance,Urine Cloudy (Clear); Bacteria,Urine Few /hpf; Bilirubin,Urine Negative (Negative); Blood,Urine Small (Negative); Color,Urine Dark Yellow; Glucose,Urine (UA) Negative (Negative); Hyaline Casts,Urine 19 /lpf (0-2); Ketones,Urine Negative (Negative); Leukocyte Esterase,Urine Trace (Negative); Mucus,Urine Many /hpf; Nitrite,Urine Negative (Negative); Protein,Urine 1+ (Negative); RBC,Urine 2 /hpf (0-5); Squamous Epithelial Cell,Urine 14 /hpf (0-4); WBC,Urine 8 /hpf (0-5)
[2020-12-05 17:10] LABS: Lymphocytes # (M) 1.83 k/uL (1.0-4.8); Monocytes # (M) 0.37 k/uL (0-1.0); Neutrophils % (M) 82 %; Nucleated Red Blood Cells 0 /100 WBC (0-0); Total Cells Counted 100
[2020-12-05] MEDS ORDERED: MORPHINE SULFATE 4 MG/ML SYRINGE IVP STA (17:20)
--- NOTE | 2020-12-05 17:39 | US ---
EXAMINATION TYPE: US gallbladder DATE OF EXAM: 12/05/2020 COMPARISON: US 03/11/2012 CLINICAL HISTORY: ruq pain, + Schulz's sign . Difficult and limited exam due to overlying bowel gas EXAM MEASUREMENTS: Liver Length: 14.2 cm Gallbladder Wall: 0.6 cm CBD: 1.1 cm Right Kidney: 10.7 x 4.6 x 4.0 cm Pancreas: Obscured by bowel gas Liver: wnl as visualized Gallbladder: Hydropic, Wall thickened, multiple stones visualized within neck Evidence for sonographic Schulz's sign: Yes CBD: Dilated Right Kidney: No hydronephrosis or masses seen IMPRESSION: Multiple gallstones. Large common bile duct but no dilation of the intrahepatic bile ducts and this i s consistent with some chronic gallbladder dysfunction. Mild gallbladder wall thickening suggestive o f cholecystitis.
--- NOTE | 2020-12-05 19:05 | CT ---
EXAMINATION TYPE: CT abdomen pelvis w con DATE OF EXAM: 12/05/2020 COMPARISON: None HISTORY: Epigastric abdomen pain. CT DLP: 823.4 mGycm Automated exposure control for dose reduction was used. CONTRAST: Performed with IV Contrast, patient injected with 100 mL of Isovue 300. Images obtained from the diaphragm to the floor the pelvis with IV contrast. Lung bases show mild lingula subsegmental atelectasis. There is no pleural effusion. Heart size is no rmal. There is no pericardial effusion. Stomach is intact. There is dilated gallbladder with wall thickening. Gallbladder measures 4.2 cm in diameter. The wall thickness measures up to 8 mm. The intrahepatic bile ducts are slightly prominent. The common bile duct is 8 mm. There is no evidence of pancreatic mass. Spleen appears normal. There is no focal liver defect. There is no adrenal mass. Kidneys show satisfactory contrast opacification. There is no hydronephrosi s. Delayed images show normal renal excretion. Ureters are not dilated. There is no retroperitoneal a denopathy. Bladder distends smoothly. There is no inguinal hernia. Uterus is normal. There is no evid ence of a pelvic mass. There is no free fluid in the pelvis. Appendix is posterior and appears normal . There is no mesenteric edema. There is no ascites or free air. There is no bowel obstruction. Lumbar vertebra have normal spacing and alignment. There is no compression fracture. Bony pelvis is i ntact. IMPRESSION: Large gallbladder with gallbladder wall thickening consistent with cholecystitis. Mild fat stranding around the gallbladder also consistent with cholecystitis. Mild ectasia of the biliary tree probably related to chronic gallbladder dysfunction.
[2020-12-05] MEDS ORDERED: ONDANSETRON 4 MG/2 ML VIAL IVP PRN (19:26)
[2020-12-05] MEDS ORDERED: LORazepam 2 MG/ML INJ IV PRN (19:26)
[2020-12-05] MEDS ORDERED: PIPERACILLIN-TAZOBACTAM 3.375 GM in SODIUM CHLORIDE 0.9% 100 ML IVPB STA (19:26)
[2020-12-05] MEDS ORDERED: NALOXONE 0.4 MG/ML 1 ML VIAL IV PRN (19:26)
[2020-12-05] MEDS: HYDROmorphone 0.5 MG/0.5 ML SYRINGE IVP PRN ×2 (19:42→22:12)
[2020-12-05] MEDS: SODIUM CHLORIDE 0.9% 1,000 ML IV SCH (19:57)
[2020-12-06] MEDS: HYDROmorphone 0.5 MG/0.5 ML SYRINGE IVP PRN ×3 (02:06→13:05)
[2020-12-06] MEDS: PIPERACILLIN-TAZOBACTAM 3.375 GM in SODIUM CHLORIDE 0.9% 100 ML IVPB SCH ×3 (03:51→19:18)
[2020-12-06 09:04] LABS: HCT 36.9 % (34.0-46.0); HGB 12.4 gm/dL (11.4-16.0); MCH 30.1 pg (25.0-35.0); MCHC 33.6 g/dL (31.0-37.0); MCV 89.5 fL (80.0-100.0); Platelet Count 234 k/uL (150-450); RBC 4.13 m/uL (3.80-5.40); RDW 14.4 % (11.5-15.5); WBC 10.4 k/uL (3.8-10.6)
[2020-12-06] MEDS: SODIUM CHLORIDE 0.9% 1,000 ML IV SCH ×2 (09:15→21:47)
[2020-12-06 10:26] LABS: Lymphocytes # (M) 1.56 k/uL (1.0-4.8); Monocytes # (M) 0.52 k/uL (0-1.0); Neutrophils # (M) 8.32 k/uL (1.3-7.7); Neutrophils % (M) 80 %; Nucleated Red Blood Cells 0 /100 WBC (0-0); Total Cells Counted 100
--- NOTE | 2020-12-06 10:29 | P.GSHP ---
<Emma Hernandez - Last Filed: 12/06/20 10:40> History of Present Illness H&P Date: 12/06/20 CHIEF COMPLAINT: Right upper quadrant abdominal pain HISTORY OF PRESENT ILLNESS: This is a 65-year-old female with a known history of myocardial infarction, nicotine dependence hypertension, hyperlipidemia, GERD, hypothyroidism, chronic neck and back pain. Patient presents to the emergency room with complaints of right upper quadrant abdominal pain that has been present for about 3 days. She reports the pain goes across her upper abdomen and up into her chest. She's been having nausea and decreased appetite. She denies any vomiting, chills, sweats, fever or change in bowel habits. Patient had abdominal ultrasound completed that shows multiple gallstones. Large common bile duct but no dilation of the intrahepatic bile ducts and this is consistent with some chronic gallbladder dysfunction. Mild gallbladder wall thickening stress of of cholecystitis. Computed tomography scan of abdomen and pelvis shows large gallbladder with gallbladder wall thickening consistent with cholecystitis. Mild fat stranding around the gallbladder. Mild ectasia of the biliary tree probably related to chronic gallbladder dysfunction. WBC 12.2, LFTs and lipase are within normal range. PAST MEDICAL HISTORY: See list. PAST SURGICAL HISTORY: See list. MEDICATIONS: See list. ALLERGIES: See list. SOCIAL HISTORY: No illicit drug use. REVIEW OF SYSTEMS: CONSTITUTIONAL: Denies fever or chills. HEENT: Denies blurred vision, vision changes, or eye pain. Denies hemoptysis CARDIOVASCULAR: Denies chest pain or pressure. RESPIRATORY: No shortness of breath. GASTROINTESTINAL: See HPI for pertinent findings HEMATOLOGIC: Denies bleeding disorders. GENITOURINARY: Denies any blood in urine or increased urinary frequency. SKIN: Denies pruitis. Denies rash. PHYSICAL EXAM: VITAL SIGNS: Reviewed GENERAL: Well-developed in no acute distress. HEENT: No sclera icterus. Extraocular movements grossly intact. Moist buccal mucosa. Head is atraumatic, normocephalic. No nasal drainage. ABDOMEN: Soft. Right upper quadrant tenderness with palpation. Nondistended. NEUROLOGIC: Alert and oriented. Cranial nerves II through XII grossly intact. LABORATORY DATA: WBC 12.2 down to 10.4 creatinine 0.78 lactic 1.7 LFTs normal troponin negative lipase 50 IMAGING: abdominal ultrasound completed that shows multiple gallstones. Large common bile duct but no dilation of the intrahepatic bile ducts and this is consistent with some chronic gallbladder dysfunction. Mild gallbladder wall thickening stress of of cholecystitis. Computed tomography scan of abdomen and pelvis shows large gallbladder with gallbladder wall thickening consistent with cholecystitis. Mild fat stranding around the gallbladder. Mild ectasia of the biliary tree probably related to chronic gallbladder dysfunction. EKG normal sinus rhythm ASSESSMENT: 1. Acute cholecystitis 2. Abdominal pain PLAN: -Patient is tentatively scheduled for laparoscopic cholecystectomy today with Dr. Dong -Keep patient nothing by mouth -Consult medicine for medical clearance -Continue IV antibiotics -Continue IV fluids -GI prophylaxis Protonix -DVT prophylaxis subcu heparin Physician Sheetrock Applicator note has been reviewed by physician. Signing provider agrees with the documented findings, assessment, and plan of care. Past Medical History Past Medical History: GERD/Reflux, Hyperlipidemia, Hypertension, Myocardial Infarction ([place]), Pneumonia, Thyroid Disorder Additional Past Medical History / Comment(s): Ruptured disc, bronchitis, fractured tailbone. Fractured right and left arm, wrists. Right shoulder fracture. Sees Dr. Perales for pain management. Chronic back pain. Last Myocardial Infarction Date:: 2017 History of Any Multi-Drug Resistant Organisms: None Reported Past Surgical History: Orthopedic Surgery Additional Past Surgical History / Comment(s): c4, c5, c6 fusion. Past Anesthesia/Blood Transfusion Reactions: No Reported Reaction, Motion Sickness Smoking Status: Current every day smoker, Light tobacco smoker - Past Family History Father History Unknown: Yes Family Medical History: CVA/TIA, Pulmonary Embolus Additional Family Medical History / Comment(s): Father of a CVA in his 80s. Mother Family Medical History: Cancer, Coronary Artery Disease (CAD), Hyperlipidemia, Hypertension Additional Family Medical History / Comment(s): Mother had uterine cancer with surgery. She at the age of 87yrs. Brother(s) History Unknown: Yes Sister(s) Family Medical History: Coronary Artery Disease (CAD) Daughter(s) Family Medical History: Asthma Son(s) History Unknown: Yes Medications and Allergies Home Medications Medication Instructions Recorded Confirmed Type FLUoxetine HCL [PROzac] 40 mg PO DAILY 03/21/18 12/05/20 History Furosemide [Lasix] 40 mg PO DAILY 03/21/18 12/05/20 History Potassium Chloride [Klor-Con 20] 20 meq PO DAILY 03/21/18 12/05/20 History atenoloL [Tenormin] 25 mg PO DAILY 03/21/18 12/05/20 History Esomeprazole Magnesium [NexIUM] 40 mg PO DAILY 02/14/19 12/05/20 History Allopurinol [Zyloprim] 100 mg PO DAILY 12/05/20 12/05/20 History HYDROcodone/APAP 10-325MG [[place] 1 tab PO TID PRN 12/05/20 12/05/20 History 10-325] Allergies Allergy/AdvReac Type Severity Reaction Status Date / Time bupropion HCl Allergy Rash/Hives Verified 12/06/20 01:01 [From Wellbutrin] Corticosteroids Allergy Unknown Verified 12/06/20 01:01 (Glucocorticoids) diclofenac potassium Allergy Anaphylaxis Verified 12/06/20 01:01 [From Cataflam] duloxetine HCl Allergy Rash/Hives Verified 12/06/20 01:01 [From Cymbalta] gabapentin [From Neurontin] Allergy Rash/Hives Verified 12/06/20 01:01 Latex, Natural Rubber Allergy Itching Verified 12/06/20 01:01 paroxetine HCl [From Paxil] Allergy Rash/Hives Verified 12/06/20 01:01 tramadol Allergy Unknown Verified 12/06/20 01:01 Surgical - Exam Vital Signs Temp Pulse Resp BP Pulse Ox 98.2 F 100 18 144/72 97 12/05/20 15:45 12/05/20 15:45 12/05/20 15:45 12/05/20 15:45 12/05/20 15:45 Results - Labs 12/06/20 08:49 12/05/20 16:20 Abnormal Lab Results - Last 24 Hours (Table) 12/05/20 12/05/20 12/05/20 Range/Units 16:20 16:20 16:28 WBC 12.2 H (3.8-10.6) k/uL Neutrophils # (Manual) 10.00 H (1.3-7.7) k/uL Sodium 135 L (137-145) mmol/L Glucose 134 H (74-99) mg/dL Urine Appearance Cloudy H (Clear) Urine Protein 1+ H (Negative) Urine Blood Small H (Negative) Ur Leukocyte Esterase Trace H (Negative) Urine WBC 8 H (0-5) /hpf Ur Squamous Epith Cells 14 H (0-4) /hpf Urine Bacteria Few H (None) /hpf Hyaline Casts 19 H (0-2) /lpf Urine Mucus Many H (None) /hpf Diabetes panel 12/05/20 Range/Units 16:20 Sodium 135 L (137-145) mmol/L Potassium 3.6 (3.5-5.1) mmol/L Chloride 103 (98-107) mmol/L Carbon Dioxide 23 (22-30) mmol/L BUN 9 (7-17) mg/dL Creatinine 0.78 (0.52-1.04) mg/dL Glucose 134 H (74-99) mg/dL Calcium 9.3 (8.4-10.2) mg/dL AST 19 (14-36) U/L ALT 17 (4-34) U/L Alkaline Phosphatase 119 (38-126) U/L Total Protein 6.8 (6.3-8.2) g/dL Albumin 3.7 (3.5-5.0) g/dL Calcium panel 12/05/20 Range/Units 16:20 Calcium 9.3 (8.4-10.2) mg/dL Albumin 3.7 (3.5-5.0) g/dL Pituitary panel 12/05/20 Range/Units 16:20 Sodium 135 L (137-145) mmol/L Potassium 3.6 (3.5-5.1) mmol/L Chloride 103 (98-107) mmol/L Carbon Dioxide 23 (22-30) mmol/L BUN 9 (7-17) mg/dL Creatinine 0.78 (0.52-1.04) mg/dL Glucose 134 H (74-99) mg/dL Calcium 9.3 (8.4-10.2) mg/dL Adrenal panel 12/05/20 Range/Units 16:20 Sodium 135 L (137-145) mmol/L Potassium 3.6 (3.5-5.1) mmol/L Chloride 103 (98-107) mmol/L Carbon Dioxide 23 (22-30) mmol/L BUN 9 (7-17) mg/dL Creatinine 0.78 (0.52-1.04) mg/dL Glucose 134 H (74-99) mg/dL Calcium 9.3 (8.4-10.2) mg/dL Total Bilirubin 1.2 (0.2-1.3) mg/dL AST 19 (14-36) U/L ALT 17 (4-34) U/L Alkaline Phosphatase 119 (38-126) U/L Total Protein 6.8 (6.3-8.2) g/dL Albumin 3.7 (3.5-5.0) g/dL <Albaro Dong - Last Filed: 12/06/20 14:01> History of Present Illness As above. Patient with complaints of epigastric and right upper quadrant pain for the last 4-5 days. Increasing in severity. Patient had minimal oral intake as a result of her pain. Slightly better today after coming into the ER last night. Workup demonstrates findings of acute cholecystitis. Options reviewed with the patient. We'll proceed with laparoscopic, possible open cholecystectomy at this time. Risks of bleeding, infection, bile leak, bile duct injury, retained common bile duct stone, trocar injury, conversion to an open procedure, hernia, anesthesia related complications were reviewed. The patient understands and wishes to proceed. Surgical - Exam Vital Signs Temp Pulse Resp BP Pulse Ox 98.2 F 100 18 144/72 97 12/05/20 15:45 12/05/20 15:45 12/05/20 15:45 12/05/20 15:45 12/05/20 15:45 Results - Labs 12/06/20 08:49 12/06/20 08:49 Abnormal Lab Results - Last 24 Hours (Table) 12/05/20 12/05/20 12/05/20 Range/Units 16:20 16:20 16:28 WBC 12.2 H (3.8-10.6) k/uL Neutrophils # (Manual) 10.00 H (1.3-7.7) k/uL Sodium 135 L (137-145) mmol/L BUN (7-17) mg/dL Glucose 134 H (74-99) mg/dL Total Protein (6.3-8.2) g/dL Albumin (3.5-5.0) g/dL Urine Appearance Cloudy H (Clear) Urine Protein 1+ H (Negative) Urine Blood Small H (Negative) Ur Leukocyte Esterase Trace H (Negative) Urine WBC 8 H (0-5) /hpf Ur Squamous Epith Cells 14 H (0-4) /hpf Urine Bacteria Few H (None) /hpf Hyaline Casts 19 H (0-2) /lpf Urine Mucus Many H (None) /hpf 12/06/20 12/06/20 Range/Units 08:49 08:49 WBC (3.8-10.6) k/uL Neutrophils # (Manual) 8.32 H (1.3-7.7) k/uL Sodium 135 L (137-145) mmol/L BUN 5 L (7-17) mg/dL Glucose (74-99) mg/dL Total Protein 5.4 L (6.3-8.2) g/dL Albumin 2.8 L (3.5-5.0) g/dL Urine Appearance (Clear) Urine Protein (Negative) Urine Blood (Negative) Ur Leukocyte Esterase (Negative) Urine WBC (0-5) /hpf Ur Squamous Epith Cells (0-4) /hpf Urine Bacteria (None) /hpf Hyaline Casts (0-2) /lpf Urine Mucus (None) /hpf Diabetes panel 12/05/20 12/06/20 Range/Units 16:20 08:49 Sodium 135 L 135 L (137-145) mmol/L Potassium 3.6 3.9 (3.5-5.1) mmol/L Chloride 103 105 (98-107) mmol/L Carbon Dioxide 23 28 (22-30) mmol/L BUN 9 5 L (7-17) mg/dL Creatinine 0.78 0.77 (0.52-1.04) mg/dL Glucose 134 H 88 (74-99) mg/dL Calcium 9.3 8.6 (8.4-10.2) mg/dL AST 19 17 (14-36) U/L ALT 17 13 (4-34) U/L Alkaline Phosphatase 119 102 (38-126) U/L Total Protein 6.8 5.4 L (6.3-8.2) g/dL Albumin 3.7 2.8 L (3.5-5.0) g/dL Calcium panel 12/05/20 12/06/20 Range/Units 16:20 08:49 Calcium 9.3 8.6 (8.4-10.2) mg/dL Albumin 3.7 2.8 L (3.5-5.0) g/dL Pituitary panel 12/05/20 12/06/20 Range/Units 16:20 08:49 Sodium 135 L 135 L (137-145) mmol/L Potassium 3.6 3.9 (3.5-5.1) mmol/L Chloride 103 105 (98-107) mmol/L Carbon Dioxide 23 28 (22-30) mmol/L BUN 9 5 L (7-17) mg/dL Creatinine 0.78 0.77 (0.52-1.04) mg/dL Glucose 134 H 88 (74-99) mg/dL Calcium 9.3 8.6 (8.4-10.2) mg/dL Adrenal panel 12/05/20 12/06/20 Range/Units 16:20 08:49 Sodium 135 L 135 L (137-145) mmol/L Potassium 3.6 3.9 (3.5-5.1) mmol/L Chloride 103 105 (98-107) mmol/L Carbon Dioxide 23 28 (22-30) mmol/L BUN 9 5 L (7-17) mg/dL Creatinine 0.78 0.77 (0.52-1.04) mg/dL Glucose 134 H 88 (74-99) mg/dL Calcium 9.3 8.6 (8.4-10.2) mg/dL Total Bilirubin 1.2 1.2 (0.2-1.3) mg/dL AST 19 17 (14-36) U/L ALT 17 13 (4-34) U/L Alkaline Phosphatase 119 102 (38-126) U/L Total Protein 6.8 5.4 L (6.3-8.2) g/dL Albumin 3.7 2.8 L (3.5-5.0) g/dL
[2020-12-06] MEDS: PANTOPRAZOLE 40 MG/10 ML VIAL IVP SCH (11:06)
--- NOTE | 2020-12-06 11:40 | P.CONS ---
History of Present Illness - Reason for Consult Consult date: 12/06/20 Medical management - History of Present Illness HISTORY OF PRESENT ILLNESS This is a 65-year-old female patient of Dr. Forbes with past medical history of gastroesophageal reflux disease, hypertension, fibromyalgia. Patient was last admitted in March 2018 at which time she presented with chest pain and was ruled out for myocardial infarction with a normal heart catheterization that was done by Dr. Cronin. Patient states that she followed up one time in the office only. Patient complains of abdominal pain that she states she has had for at least 4-5 days with initially having nausea and vomiting. No diarrhea. She presented to [facility] emergency center was found to have an ultrasound multiple gallstones. Large common bile duct but no dilation of the intrahepatic bile ducts consistent with some chronic gallbladder dysfunction. Mild gallbladder wall thickening consistent with cholecystitis. CAT scan of the abdomen and pelvis revealed large gallbladder with gallbladder wall thickening consistent with cholecystitis. Mild fat stranding around the gallbladder. Mild ectasia of the biliary tree probably related to chronic gallbladder dysfunction. EKG was normal sinus rhythm with no acute ST changes. She has been afebrile, heart rate 74, blood pressure 117/66, pulse ox 96% on room air. Initial WBC 12.2 with repeat of 10.4. Hemoglobin 14.1. Sodium 135 otherwise electrolytes are completely normal as well as renal function. Blood sugar 134. Patient denies history of diabetes. Liver function tests are normal. Urinalysis cloudy with leukoesterase trace squamous cells are 14. Patient has been admitted under the care of Dr. Dong with plan for laparoscopic cholecystectomy later this afternoon. REVIEW OF SYSTEMS Constitutional: No fever, no chills, no night sweats. No weight change. No weakness, fatigue or lethargy. No daytime sleepiness. EENT: No headache. No blurred vision or double vision, no loss of vision. No loss of Hearing, no ringing in the ears, no dizziness. No nasal drainage or congestion. No epistaxis. No sore throat. Lungs: No shortness of breath, cough, no sputum production. No wheezing. Cardiovascular: No chest pain, no lower extremity edema. No palpitations. No paroxysmal nocturnal dyspnea. No orthopnea. No lightheadedness or dizziness. No syncopal episodes. Abdominal: Reports abdominal pain. Resolved nausea, vomiting. No diarrhea. No constipation. No bloody or tarry stools.. No loss of appetite. Genitourinary: No dysuria, increased frequency, urgency. No urinary retention. Musculoskeletal: No myalgias. No muscle weakness, no gait dysfunction, no frequent falls. No back pain. No neck pain. Integumentary: No wounds, no lesions. No rash or pruritus. No unusual bruising. No change in hair or nails. Neurologic: No aphasia. No facial droop. No change in mentation. No head injury. No headache. No paralysis. No paresthesia. Psychiatric: No depression. No anxiety. No mood swings. Endocrine: No abnormal blood sugars. No weight change. No excessive sweating or thirst. No cold intolerance. SOCIAL HISTORY Patient is a smoker of one quarter pack of cigarettes per day since she was 16 years of age. She denies any marijuana use, street drug use or alcohol use. She lives with significant other. She is currently on disability and previously worked as a caregiver for elderly. FAMILY HISTORY Mother at age 87 from coronary artery disease with history of uterine cancer. Father in his 80s from CVA with history of pulmonary embolism. Patient has a total of 5 brothers. One has history of obstructive sleep apnea and diabetes. 4 brothers with no major medical problems. Patient has 1 sister and she does not know any for medical problems. Patient's 4 children and one son has ADHD and history of drug abuse. PHYSICAL EXAMINATION Gen: This is a 65-year-old female. Patient is resting in bed appears to be comfortable and in no acute distress. HEENT: Head is atraumatic, normocephalic. Pupils equal, round. Sclerae is anicteric. NECK: Supple. No JVD. No lymphadenopathy. No thyromegaly. LUNGS: Clear to auscultation. No wheezes or rhonchi. No intercostal retractions. HEART: Regular rate and rhythm. No murmur. ABDOMEN: Soft. Bowel sounds are present. No masses. Mild epigastric and right upper quadrant tenderness. EXTREMITIES: No pedal edema. No calf tenderness. Dorsalis pedis +2 bilaterally. Patient has draining abscess on the posterior left thigh. NEUROLOGICAL: Patient is awake, alert and oriented x3. Cranial nerves 2 through 12 are grossly intact. ASSESSMENT AND PLAN 1. Acute cholecystitis. Patient is currently nothing by mouth with plan for left scopic cholecystectomy this afternoon with Dr. Dong. Patient is currently on Zosyn. Patient is cleared medically for surgical intervention. 2. Left thigh abscess. Wound culture to be obtained. Continue Zosyn. Patient may need gram-positive coverage. 3. Fibromyalgia, stable. 4. Tobacco use and dependence. Patient declines need for nicotine patch. 5. Gastroesophageal reflux disease and GI prophylaxis. Continue Protonix. 6. Chronic gout. Vision is usually on allopurinol 100 mg daily. 7. Hypertension. Continue atenolol 25 mg daily, hold Lasix 40 mg daily and potassium. 8. Recurrent depression. Continue Prozac 40 mg daily. 9. History of hypothyroidism, resolved according to the patient and she has been off medication for 5-6 months. DVT prophylaxis. Heparin subcu. [facility] for this consultation. We will be happy to follow along with you. DISCHARGE PLAN Home. Impression and plan of care have been directed as dictated by the signing physician. Johanna Mtichell nurse practitioner acting as scribe for signing physician. Past Medical History Past Medical History: GERD/Reflux, Hyperlipidemia, Hypertension, Pneumonia, Thyroid Disorder Additional Past Medical History / Comment(s): Ruptured disc, bronchitis, fractured tailbone. Fractured right and left arm, wrists. Right shoulder fracture. Sees Dr. Perales for pain management. Chronic back pain. Last Myocardial Infarction Date:: 2018 History of Any Multi-Drug Resistant Organisms: None Reported Past Surgical History: Heart Catheterization, Orthopedic Surgery Additional Past Surgical History / Comment(s): c4, c5, c6 fusion, right rotator cuff repair, normal heart catheterization in 2018. Past Anesthesia/Blood Transfusion Reactions: No Reported Reaction, Motion Sickness Smoking Status: Current every day smoker, Light tobacco smoker - Past Family History Father History Unknown: Yes Family Medical History: CVA/TIA, Pulmonary Embolus Additional Family Medical History / Comment(s): Father of a CVA in his 80s. Mother Family Medical History: Cancer, Coronary Artery Disease (CAD), Hyperlipidemia, Hypertension Additional Family Medical History / Comment(s): Mother had uterine cancer with surgery. She at the age of 87yrs. Brother(s) History Unknown: Yes Sister(s) Family Medical History: Coronary Artery Disease (CAD) Daughter(s) Family Medical History: Asthma Son(s) History Unknown: Yes Medications and Allergies Home Medications Medication Instructions Recorded Confirmed Type FLUoxetine HCL [PROzac] 40 mg PO DAILY 03/21/18 12/05/20 History Furosemide [Lasix] 40 mg PO DAILY 03/21/18 12/05/20 History Potassium Chloride [Klor-Con 20] 20 meq PO DAILY 03/21/18 12/05/20 History atenoloL [Tenormin] 25 mg PO DAILY 03/21/18 12/05/20 History Esomeprazole Magnesium [NexIUM] 40 mg PO DAILY 02/14/19 12/05/20 History Allopurinol [Zyloprim] 100 mg PO DAILY 12/05/20 12/05/20 History HYDROcodone/APAP 10-325MG [[place] 1 tab PO TID PRN 12/05/20 12/05/20 History 10-325] Allergies Allergy/AdvReac Type Severity Reaction Status Date / Time bupropion HCl Allergy Rash/Hives Verified 12/06/20 01:01 [From Wellbutrin] Corticosteroids Allergy Unknown Verified 12/06/20 01:01 (Glucocorticoids) diclofenac potassium Allergy Anaphylaxis Verified 12/06/20 01:01 [From Cataflam] duloxetine HCl Allergy Rash/Hives Verified 12/06/20 01:01 [From Cymbalta] gabapentin [From Neurontin] Allergy Rash/Hives Verified 12/06/20 01:01 Latex, Natural Rubber Allergy Itching Verified 12/06/20 01:01 paroxetine HCl [From Paxil] Allergy Rash/Hives Verified 12/06/20 01:01 tramadol Allergy Unknown Verified 12/06/20 01:01 Physical Exam Vitals: Vital Signs Temp Pulse Pulse Resp BP BP Pulse Ox 12/06/20 08:43 98.6 F 74 20 117/66 96 12/06/20 02:00 98.2 F 82 18 115/70 93 L 12/06/20 00:55 98.3 F 75 18 131/78 97 12/05/20 21:12 70 18 119/65 98 12/05/20 18:52 72 19 145/82 98 12/05/20 17:39 80 18 144/82 97 12/05/20 15:45 98.2 F 100 18 144/72 97 Intake and Output 12/05/20 12/06/20 12/06/20 22:59 06:59 14:59 Other: Voiding Method Toilet Toilet # Voids 1 Weight 65.771 kg 69.1 kg Results CBC & Chem 7: 12/06/20 08:49 12/05/20 16:20 Labs: Abnormal Lab Results - Last 24 Hours (Table) 12/05/20 12/05/20 12/05/20 Range/Units 16:20 16:20 16:28 WBC 12.2 H (3.8-10.6) k/uL Neutrophils # (Manual) 10.00 H (1.3-7.7) k/uL Sodium 135 L (137-145) mmol/L Glucose 134 H (74-99) mg/dL Urine Appearance Cloudy H (Clear) Urine Protein 1+ H (Negative) Urine Blood Small H (Negative) Ur Leukocyte Esterase Trace H (Negative) Urine WBC 8 H (0-5) /hpf Ur Squamous Epith Cells 14 H (0-4) /hpf Urine Bacteria Few H (None) /hpf Hyaline Casts 19 H (0-2) /lpf Urine Mucus Many H (None) /hpf 12/06/20 Range/Units 08:49 WBC (3.8-10.6) k/uL Neutrophils # (Manual) 8.32 H (1.3-7.7) k/uL Sodium (137-145) mmol/L Glucose (74-99) mg/dL Urine Appearance (Clear) Urine Protein (Negative) Urine Blood (Negative) Ur Leukocyte Esterase (Negative) Urine WBC (0-5) /hpf Ur Squamous Epith Cells (0-4) /hpf Urine Bacteria (None) /hpf Hyaline Casts (0-2) /lpf Urine Mucus (None) /hpf
[2020-12-06 11:55] LABS: ALT 13 U/L (4-34); AST 17 U/L (14-36); African American GFR (CKD) >90 (>60 ml/min/1.73 sqM); Albumin 2.8 g/dL (3.5-5.0); Albumin/Globulin Ratio 1.1; Alkaline Phosphatase 102 U/L (38-126); Anion Gap 2 mmol/L; Blood Urea Nitrogen 5 mg/dL (7-17); Calcium 8.6 mg/dL (8.4-10.2); Carbon Dioxide 28 mmol/L (22-30); Chloride 105 mmol/L (98-107); Globulin 2.6 g/dL; Glucose 88 mg/dL (74-99); Non-African American GFR(CKD) 82 (>60 ml/min/1.73 sqM); Potassium 3.9 mmol/L (3.5-5.1); Sodium 135 mmol/L (137-145); Total Bilirubin 1.2 mg/dL (0.2-1.3); Total Protein 5.4 g/dL (6.3-8.2)
[2020-12-06] MEDS ORDERED: IV FLUID CONTINUATION 1,000 ML IV ONE ×2 (13:51)
[2020-12-06] MEDS ORDERED: ONDANSETRON 4 MG/2 ML VIAL IVP ONE ×2 (13:53→18:14)
[2020-12-06] MEDS: HEPARIN SODIUM,PORCINE 5,000 UNIT/ML 1 ML VIAL SQ SCH (14:01)
[2020-12-06] MEDS ORDERED: MIDAZOLAM 2 MG/2 ML VIAL ONE (15:24)
[2020-12-06] MEDS ORDERED: SUCCINYLCHOLINE CHLORIDE 100 MG/5 ML SYR IV ONE (15:24)
[2020-12-06] MEDS ORDERED: ROCURONIUM 10 MG/ML (10 ML VIAL) IV ONE (15:24)
[2020-12-06] MEDS ORDERED: PROPOFOL 10 MG/ML 20 ML VIAL IV ONE (15:24)
[2020-12-06] MEDS ORDERED: fentaNYL (PF) 50 MCG/ML 2 ML AMP ONE (15:24)
[2020-12-06] MEDS ORDERED: BUPIVACAINE (PF) 0.25% 30 ML VIAL SQ ONE (15:53)
[2020-12-06] MEDS: HYDROmorphone 1 MG/ML 1 ML SYRINGE IVP ONE ×4 (16:55→17:17)
--- NOTE | 2020-12-06 17:00 | P.OP ---
Date of Procedure: 12/06/20 Procedure(s) Performed: PREOPERATIVE DIAGNOSIS: Acute cholecystitis POSTOPERATIVE DIAGNOSIS: Acute gangrenous cholecystitis with hydrops PROCEDURE: Laparoscopic cholecystectomy SURGEON: Iker EBL: 25 mL ANESTHESIA: Gen. COMPLICATIONS: None OPERATIVE PROCEDURE: The patient was brought and placed on the operating room table in the supine position. The patient was placed under general anesthesia at that time. The patient's gallbladder was palpable in the right upper quadrant after paralytics. The abdomen was prepped and draped in the usual sterile fashion. A small vertical infraumbilical incision was made. The fascia was grasped with the Edward forceps. The fascia was retracted anteriorly. The Veress needle was advanced into the peritoneal cavity. The saline drop test was normal. Insufflation took place up to 15 mmHg. A 5 mm optical trocar was advanced and the peritoneal cavity. 2 additional 5 mm trochars were placed in the right upper quadrant under direct visualization. A 12 mm trocar was advanced into the epigastric incision site. The gallbladder was acutely inflamed. The transverse colon and omentum were adherent to the gallbladder. Blunt dissection and the LigaSure were used to mobilize the gallbladder fully. The gallbladder was very tense and had some early gangrenous changes. A small opening was made in the lung this and the gallbladder contents were evacuated. Clear fluid was evacuated. The gallbladder was retracted superiorly and laterally. The peritoneum overlying the infundibulum was bluntly dissected. The patient's cystic duct was visualized. The junction between the cystic duct common and hepatic duct was identified. The cystic duct was then divided using a 2-0 Ethibond stitch tied down using the tie knot device given the edema present. An additional clip was also placed on the patient's side. The cystic artery was identified and clipped as well. A small vessel was seen along the gallbladder fossa and clipped as well. The gallbladder was then removed from the liver bed using electrocautery and the LigaSure device. The gallbladder fossa was irrigated with saline. There was no evidence of any bleeding or biliary drainage seen. A drain was placed in the right upper quadrant exiting through the lateral 5 mm trocar site. This was sutured to the skin using a 3-0 silk stitch. The gallbladder was placed in a Endo Catch bag. The fascia was opened further using electrocautery. The gallbladder was then able to be removed through the enlarged epigastric trocar incision site. The fascia was reapproximated using a running 0 Vicryl stitch. The trochars were then removed. The skin at all 3 sites was closed using a 4-0 Monocryl stitch. Skin glue was utilized on the incision sites. At the end of this procedure the sponge and needle counts were correct. DISPOSITION: Stable to the recovery room
[2020-12-06] MEDS: fentaNYL (PF) 50 MCG/ML 2 ML AMP IVP ONE ×2 (17:29→17:42)
[2020-12-06] MEDS ORDERED: LACTATED RINGERS 1,000 ML IV ONE (18:13)
[2020-12-06] MEDS: NICOTINE 14MG/24HR PATCH TRANSDERM SCH (19:13)
[2020-12-06] MEDS: MORPHINE SULFATE 4 MG/ML SYRINGE IV PRN (20:19)
[2020-12-07] MEDS: HYDROmorphone 1 MG/ML 1 ML SYRINGE IVP PRN (00:27)
[2020-12-07] MEDS: PIPERACILLIN-TAZOBACTAM 3.375 GM in SODIUM CHLORIDE 0.9% 100 ML IVPB SCH ×3 (04:21→20:35)
[2020-12-07] MEDS: MORPHINE SULFATE 4 MG/ML SYRINGE IV PRN ×3 (04:24→20:47)
[2020-12-07 07:05] LABS: HCT 34.4 % (34.0-46.0); HGB 11.3 gm/dL (11.4-16.0); MCH 29.8 pg (25.0-35.0); MCHC 32.7 g/dL (31.0-37.0); Mean Platelet Volume 6.9; Platelet Count 239 k/uL (150-450); RBC 3.78 m/uL (3.80-5.40); RDW 14.3 % (11.5-15.5)
[2020-12-07 07:11] LABS: ALT 16 U/L (4-34); AST 22 U/L (14-36); African American GFR (CKD) >90 (>60 ml/min/1.73 sqM); Albumin 2.7 g/dL (3.5-5.0); Alkaline Phosphatase 101 U/L (38-126); Anion Gap 2 mmol/L; Blood Urea Nitrogen 4 mg/dL (7-17); Calcium 8.4 mg/dL (8.4-10.2); Carbon Dioxide 26 mmol/L (22-30); Chloride 108 mmol/L (98-107); Glucose 79 mg/dL (74-99); Non-African American GFR(CKD) 90 (>60 ml/min/1.73 sqM); Potassium 3.6 mmol/L (3.5-5.1); Sodium 136 mmol/L (137-145); Total Bilirubin 0.7 mg/dL (0.2-1.3); Total Protein 5.2 g/dL (6.3-8.2)
[2020-12-07] MEDS: HYDROcodone/APAP 7.5-325MG 1 EACH TAB PO PRN ×2 (08:21→18:40)
[2020-12-07] MEDS: PANTOPRAZOLE 40 MG/10 ML VIAL IVP SCH (08:39)
[2020-12-07] MEDS: HEPARIN SODIUM,PORCINE 5,000 UNIT/ML 1 ML VIAL SQ SCH ×2 (08:41→20:35)
[2020-12-07] MEDS: atenoloL 25 MG TAB PO SCH (08:42)
[2020-12-07] MEDS: allopurinoL 100 MG TAB PO SCH (08:43)
[2020-12-07] MEDS: FLUoxetine HCL 20 MG CAP PO SCH (09:11)
--- NOTE | 2020-12-07 10:29 | P.PN ---
Subjective Progress Note Date: 12/07/20 Principal diagnosis: Abdominal pain, acute cholecystitis, post cholecystectomy, left thigh abscess posterior drainage, COPD, chronic smoking HISTORY OF PRESENT ILLNESS This is a 65-year-old female patient of Dr. Forbes with past medical history of gastroesophageal reflux disease, hypertension, fibromyalgia. Patient was last admitted in March 2018 at which time she presented with chest pain and was ruled out for myocardial infarction with a normal heart catheterization that was done by Dr. Cronin. Patient states that she followed up one time in the office only. Patient complains of abdominal pain that she states she has had for at least 4-5 days with initially having nausea and vomiting. No diarrhea. She presented to [facility] emergency center was found to have an ultrasound multiple gallstones. Large common bile duct but no dilation of the intrahepatic bile ducts consistent with some chronic gallbladder dysfunction. Mild gallbladder wall thickening consistent with cholecystitis. CAT scan of the abdomen and pelvis revealed large gallbladder with gallbladder wall thickening consistent with cholecystitis. Mild fat stranding around the gallbladder. Mild ectasia of the biliary tree probably related to chronic gallbladder dysfunction. EKG was normal sinus rhythm with no acute ST changes. She has been afebrile, heart rate 74, blood pressure 117/66, pulse ox 96% on room air. Initial WBC 12.2 with repeat of 10.4. Hemoglobin 14.1. Sodium 135 otherwise electrolytes are completely normal as well as renal function. Blood sugar 134. Patient denies history of diabetes. Liver function tests are normal. Urinalysis cloudy with leukoesterase trace squamous cells are 14. Patient has been admitted under the care of Dr. Dong with plan for laparoscopic cholecystectomy later this afternoon. 12/07: Patient is doing slightly better continue to have slight nausea she still have significant pain in the right upper quadrant area from her surgical site still have drainage tube, still on clear liquid. Patient is having mild shortness of breath mostly COPD and chronic smoking she still slightly but diminished in the bases both lungs pain is not well-controlled so far with oral hydrocodone she is requiring it more often. We'll titrate activity controlled pain and possibly drainage tube out before discharge home with most likely would not happen until tomorrow. Objective - Vital Signs Vital signs: Vital Signs Temp 97.6 F 12/07/20 01:29 Pulse 76 12/07/20 01:29 Resp 18 12/07/20 01:29 BP 120/78 12/07/20 01:29 Pulse Ox 96 12/07/20 01:29 Intake & Output 12/06/20 12/06/20 12/07/20 06:59 18:59 06:59 Intake Total 1275 300 Output Total 55 590 Balance 1220 -290 Weight 69.1 kg Intake: IV 1275 Oral 300 Output: Urine 30 550 Estimated Blood Loss 25 Other 40 Other: Voiding Method Toilet Toilet # Voids 1 1 - Exam REVIEW OF SYSTEMS Constitutional: No fever, no chills, no night sweats. No weight change. No weakness, fatigue or lethargy. No daytime sleepiness. EENT: No headache. No blurred vision or double vision, no loss of vision. No loss of Hearing, no ringing in the ears, no dizziness. No nasal drainage or congestion. No epistaxis. No sore throat. Lungs: No shortness of breath, cough, no sputum production. No wheezing. Cardiovascular: No chest pain, no lower extremity edema. No palpitations. No paroxysmal nocturnal dyspnea. No orthopnea. No lightheadedness or dizziness. No syncopal episodes. Abdominal: Reports abdominal pain. Resolved nausea, vomiting. No diarrhea. No constipation. No bloody or tarry stools.. No loss of appetite. Genitourinary: No dysuria, increased frequency, urgency. No urinary retention. Musculoskeletal: No myalgias. No muscle weakness, no gait dysfunction, no frequent falls. No back pain. No neck pain. Integumentary: No wounds, no lesions. No rash or pruritus. No unusual bruising. No change in hair or nails. Neurologic: No aphasia. No facial droop. No change in mentation. No head injury. No headache. No paralysis. No paresthesia. Psychiatric: No depression. No anxiety. No mood swings. Endocrine: No abnormal blood sugars. No weight change. No excessive sweating or thirst. No cold intolerance. PHYSICAL EXAMINATION Gen: This is a 65-year-old female. Patient is resting in bed appears to be comfortable and in no acute distress. HEENT: Head is atraumatic, normocephalic. Pupils equal, round. Sclerae is anicteric. NECK: Supple. No JVD. No lymphadenopathy. No thyromegaly. LUNGS: Clear to auscultation. No wheezes or rhonchi. No intercostal retractions. HEART: Regular rate and rhythm. No murmur. ABDOMEN: Soft. Bowel sounds are present. No masses. Mild epigastric and right upper quadrant tenderness. EXTREMITIES: No pedal edema. No calf tenderness. Dorsalis pedis +2 bilaterally. Patient has draining abscess on the posterior left thigh. NEUROLOGICAL: Patient is awake, alert and oriented x3. Cranial nerves 2 through 12 are grossly intact. - Labs CBC & Chem 7: 12/07/20 06:29 12/07/20 06:29 Labs: Abnormal Lab Results - Last 24 Hours (Table) 12/06/20 12/06/20 Range/Units 08:49 08:49 Neutrophils # (Manual) 8.32 H (1.3-7.7) k/uL Sodium 135 L (137-145) mmol/L BUN 5 L (7-17) mg/dL Total Protein 5.4 L (6.3-8.2) g/dL Albumin 2.8 L (3.5-5.0) g/dL Microbiology - Last 24 Hours (Table) 12/06/20 16:37 Gram Stain - Preliminary Leg - Left Wound Culture - Preliminary 12/05/20 19:50 Blood Culture - Preliminary Blood No Growth after 24 hours Assessment and Plan Assessment: ASSESSMENT AND PLAN 1. Acute cholecystitis. Post cholecystectomy she is doing well patient had ascending cholangitis still on IV antibiotic with Zosyn at this point will cover culture is negative so far. 2. Left thigh abscess. Wound culture to be obtained. Continue Zosyn. Patient may need gram-positive coverage. 3. COPD: Continue patient on nebulizer management along with O2 still doing incentive spirometry 4. Tobacco use and dependence. Patient declines need for nicotine patch. 5. Gastroesophageal reflux disease and GI prophylaxis. Continue Protonix. 6. Chronic gout. Vision is usually on allopurinol 100 mg daily. 7. Hypertension. Continue atenolol 25 mg daily, hold Lasix 40 mg daily and potassium. 8. Recurrent depression. Continue Prozac 40 mg daily. 9. History of hypothyroidism, resolved according to the patient and she has been off medication for 5-6 months. DVT prophylaxis. Heparin subcu. Discharge planning: Most likely home tomorrow.
[2020-12-07 10:34] LABS: Eosinophils # (M) 0.14 k/uL (0-0.7); Lymphocytes # (M) 1.26 k/uL (1.0-4.8); Monocytes # (M) 0.42 k/uL (0-1.0); Neutrophils # (M) 5.18 k/uL (1.3-7.7); Neutrophils % (M) 74 %; Nucleated Red Blood Cells 0 /100 WBC (0-0); Total Cells Counted 100
[2020-12-07 10:37] LABS: Reactive Lymphocytes Present
[2020-12-07] MEDS: HYDROmorphone 0.5 MG/0.5 ML SYRINGE IVP PRN ×2 (10:42→16:01)
[2020-12-07] MEDS: SODIUM CHLORIDE 0.9% 1,000 ML IV SCH ×2 (10:54→23:00)
[2020-12-07] MEDS: IPRATROPIUM-ALBUTEROL 3 ML NEB INHALATION SCH ×4 (11:28→23:26)
--- NOTE | 2020-12-07 11:29 | P.PN ---
Subjective Progress Note Date: 12/07/20 Principal diagnosis: Acute cholecystitis Patient says her pain today is better than preop although still uncomfortable. ADOLFO drain serosanguineous. She has been ambulating. White blood cell count is normal. Liver enzymes normal. Objective - Vital Signs Vital signs: Vital Signs Temp 98.1 F 12/07/20 08:05 Pulse 72 12/07/20 08:05 Resp 16 12/07/20 08:05 BP 131/79 12/07/20 08:05 Pulse Ox 95 12/07/20 08:05 Intake & Output 12/06/20 12/07/20 12/07/20 18:59 06:59 18:59 Intake Total 1275 300 Output Total 55 770 350 Balance 1220 -470 -350 Intake: IV 1275 Oral 300 Output: Drainage 30 Right Lower Abdomen 30 Urine 30 700 350 Estimated Blood Loss 25 Other 40 Other: Voiding Method Toilet # Voids 1 1 - Exam Abdomen: Soft, nondistended, mild tenderness, incisions clean and dry, ADOLFO serosanguineous - Labs CBC & Chem 7: 12/07/20 06:29 12/07/20 06:29 Labs: Abnormal Lab Results - Last 24 Hours (Table) 12/06/20 12/07/20 12/07/20 Range/Units 08:49 06:29 06:29 RBC 3.78 L (3.80-5.40) m/uL Hgb 11.3 L (11.4-16.0) gm/dL Sodium 135 L 136 L (137-145) mmol/L Chloride 108 H (98-107) mmol/L BUN 5 L 4 L (7-17) mg/dL Total Protein 5.4 L 5.2 L (6.3-8.2) g/dL Albumin 2.8 L 2.7 L (3.5-5.0) g/dL Microbiology - Last 24 Hours (Table) 12/06/20 16:37 Gram Stain - Preliminary Leg - Left Wound Culture - Preliminary 12/05/20 19:50 Blood Culture - Preliminary Blood No Growth after 24 hours Assessment and Plan (1) Acute cholecystitis Narrative/Plan: Patient doing fairly well. She is not ready to go home however. Continue advancing diet. Ambulate. We'll add Toradol for pain control. Recheck labs tomorrow. Current Visit: Yes Status: Acute Code(s): K81.0 - ACUTE CHOLECYSTITIS SNOMED Code(s): 81340295
[2020-12-07] MEDS ORDERED: KETOROLAC 15 MG/ML 1 ML VIAL IVP SCH (12:00)
[2020-12-07] MEDS: NICOTINE 14MG/24HR PATCH TRANSDERM SCH (18:43)
[2020-12-08] MEDS: HYDROcodone/APAP 7.5-325MG 1 EACH TAB PO PRN ×4 (01:08→18:49)
[2020-12-08] MEDS: PIPERACILLIN-TAZOBACTAM 3.375 GM in SODIUM CHLORIDE 0.9% 100 ML IVPB SCH ×3 (03:50→20:34)
[2020-12-08] MEDS: HYDROmorphone 1 MG/ML 1 ML SYRINGE IVP PRN ×3 (05:40→20:34)
[2020-12-08 07:27] LABS: ALT 16 U/L (4-34); AST 20 U/L (14-36); African American GFR (CKD) >90 (>60 ml/min/1.73 sqM); Albumin 2.5 g/dL (3.5-5.0); Alkaline Phosphatase 99 U/L (38-126); Anion Gap 3 mmol/L; Blood Urea Nitrogen 3 mg/dL (7-17); Calcium 8.5 mg/dL (8.4-10.2); Carbon Dioxide 26 mmol/L (22-30); Chloride 109 mmol/L (98-107); Glucose 105 mg/dL (74-99); Non-African American GFR(CKD) 82 (>60 ml/min/1.73 sqM); Sodium 138 mmol/L (137-145); Total Bilirubin 0.5 mg/dL (0.2-1.3); Total Protein 4.9 g/dL (6.3-8.2)
[2020-12-08] MEDS: IPRATROPIUM-ALBUTEROL 3 ML NEB INHALATION SCH ×6 (07:47→23:55)
[2020-12-08] MEDS: HEPARIN SODIUM,PORCINE 5,000 UNIT/ML 1 ML VIAL SQ SCH ×2 (08:33→20:34)
[2020-12-08] MEDS: atenoloL 25 MG TAB PO SCH (08:33)
[2020-12-08] MEDS: PANTOPRAZOLE 40 MG/10 ML VIAL IVP SCH (08:33)
[2020-12-08] MEDS: allopurinoL 100 MG TAB PO SCH (08:33)
[2020-12-08] MEDS: FLUoxetine HCL 20 MG CAP PO SCH (09:41)
--- NOTE | 2020-12-08 10:27 | P.PN ---
Subjective Progress Note Date: 12/08/20 Principal diagnosis: Abdominal pain, acute cholecystitis, post cholecystectomy, left thigh abscess posterior drainage, COPD, chronic smoking HISTORY OF PRESENT ILLNESS This is a 65-year-old female patient of Dr. Forbes with past medical history of gastroesophageal reflux disease, hypertension, fibromyalgia. Patient was last admitted in March 2018 at which time she presented with chest pain and was ruled out for myocardial infarction with a normal heart catheterization that was done by Dr. Cronin. Patient states that she followed up one time in the office only. Patient complains of abdominal pain that she states she has had for at least 4-5 days with initially having nausea and vomiting. No diarrhea. She presented to [facility] emergency center was found to have an ultrasound multiple gallstones. Large common bile duct but no dilation of the intrahepatic bile ducts consistent with some chronic gallbladder dysfunction. Mild gallbladder wall thickening consistent with cholecystitis. CAT scan of the abdomen and pelvis revealed large gallbladder with gallbladder wall thickening consistent with cholecystitis. Mild fat stranding around the gallbladder. Mild ectasia of the biliary tree probably related to chronic gallbladder dysfunction. EKG was normal sinus rhythm with no acute ST changes. She has been afebrile, heart rate 74, blood pressure 117/66, pulse ox 96% on room air. Initial WBC 12.2 with repeat of 10.4. Hemoglobin 14.1. Sodium 135 otherwise electrolytes are completely normal as well as renal function. Blood sugar 134. Patient denies history of diabetes. Liver function tests are normal. Urinalysis cloudy with leukoesterase trace squamous cells are 14. Patient has been admitted under the care of Dr. Dong with plan for laparoscopic cholecystectomy later this afternoon. 12/07: Patient is doing slightly better continue to have slight nausea she still have significant pain in the right upper quadrant area from her surgical site still have drainage tube, still on clear liquid. Patient is having mild shortness of breath mostly COPD and chronic smoking she still slightly but diminished in the bases both lungs pain is not well-controlled so far with oral hydrocodone she is requiring it more often. We'll titrate activity controlled pain and possibly drainage tube out before discharge home with most likely would not happen until tomorrow. 12/08: Patient is doing very well pain is well controlled, drainage is much better so far, her abscess in the left thigh has improved significantly and highly draining anything. Patient is ambulating able to tolerate her oral meds and food with no complication most likely be discharge home today. Objective - Vital Signs Vital signs: Vital Signs Temp 97.9 F 12/08/20 08:05 Pulse 67 12/08/20 08:05 Resp 16 12/08/20 08:05 BP 113/68 12/08/20 08:05 Pulse Ox 93 L 12/08/20 08:05 Intake & Output 12/07/20 12/08/20 12/08/20 18:59 06:59 18:59 Intake Total 480 100 Output Total 880 1030 350 Balance -400 -930 -350 Intake: Intake, IV Titration 100 Amount Piperacillin-Tazobactam 3 100 .375 gm In Sodium Chloride 0.9% 100 ml @ 25 mls/hr IVPB Q8H [facility] Rx#: [id number] Oral 480 Output: Drainage 30 80 Right Lower Abdomen 30 80 Urine 850 950 350 Other: Voiding Method Toilet # Voids 1 1 1 - Exam REVIEW OF SYSTEMS Constitutional: No fever, no chills, no night sweats. No weight change. No weakness, fatigue or lethargy. No daytime sleepiness. EENT: No headache. No blurred vision or double vision, no loss of vision. No loss of Hearing, no ringing in the ears, no dizziness. No nasal drainage or congestion. No epistaxis. No sore throat. Lungs: No shortness of breath, cough, no sputum production. No wheezing. Cardiovascular: No chest pain, no lower extremity edema. No palpitations. No paroxysmal nocturnal dyspnea. No orthopnea. No lightheadedness or dizziness. No syncopal episodes. Abdominal: Reports abdominal pain. Resolved nausea, vomiting. No diarrhea. No constipation. No bloody or tarry stools.. No loss of appetite. Genitourinary: No dysuria, increased frequency, urgency. No urinary retention. Musculoskeletal: No myalgias. No muscle weakness, no gait dysfunction, no frequent falls. No back pain. No neck pain. Integumentary: No wounds, no lesions. No rash or pruritus. No unusual bruising. No change in hair or nails. Neurologic: No aphasia. No facial droop. No change in mentation. No head injury. No headache. No paralysis. No paresthesia. Psychiatric: No depression. No anxiety. No mood swings. Endocrine: No abnormal blood sugars. No weight change. No excessive sweating or thirst. No cold intolerance. PHYSICAL EXAMINATION Gen: This is a 65-year-old female. Patient is resting in bed appears to be comfortable and in no acute distress. HEENT: Head is atraumatic, normocephalic. Pupils equal, round. Sclerae is anicteric. NECK: Supple. No JVD. No lymphadenopathy. No thyromegaly. LUNGS: Clear to auscultation. No wheezes or rhonchi. No intercostal retractions. HEART: Regular rate and rhythm. No murmur. ABDOMEN: Soft. Bowel sounds are present. No masses. Mild epigastric and right upper quadrant tenderness. EXTREMITIES: No pedal edema. No calf tenderness. Dorsalis pedis +2 bilaterall y. Patient has draining abscess on the posterior left thigh. NEUROLOGICAL: Patient is awake, alert and oriented x3. Cranial nerves 2 through 12 are grossly intact. - Labs CBC & Chem 7: 12/07/20 06:29 12/08/20 06:36 Labs: Abnormal Lab Results - Last 24 Hours (Table) 12/08/20 Range/Units 06:36 Chloride 109 H (98-107) mmol/L BUN 3 L (7-17) mg/dL Glucose 105 H (74-99) mg/dL Total Protein 4.9 L (6.3-8.2) g/dL Albumin 2.5 L (3.5-5.0) g/dL Microbiology - Last 24 Hours (Table) 12/05/20 19:50 Blood Culture - Preliminary Blood No Growth after 48 hours Assessment and Plan Assessment: ASSESSMENT AND PLAN 1. Acute cholecystitis. Post cholecystectomy she is doing well patient had ascending cholangitis still on IV antibiotic with Zosyn at this point will cover culture is negative so far. 2. Left thigh abscess. Wound culture to be obtained. We'll continue Augmentin as an outpatient for total of 7 days no more drainage. 3. COPD: Continue patient on nebulizer management along with O2 still doing incentive spirometry 4. Tobacco use and dependence. Patient declines need for nicotine patch. 5. Gastroesophageal reflux disease and GI prophylaxis. Continue Protonix. 6. Chronic gout. Vision is usually on allopurinol 100 mg daily. 7. Hypertension. Continue atenolol 25 mg daily, hold Lasix 40 mg daily and potassium. 8. Recurrent depression. Continue Prozac 40 mg daily. 9. History of hypothyroidism, resolved according to the patient and she has been off medication for 5-6 months. DVT prophylaxis. Heparin subcu. Discharge planning: Patient will be discharged home today.
--- NOTE | 2020-12-08 12:15 | P.PN ---
Subjective Progress Note Date: 12/08/20 Principal diagnosis: Acute cholecystitis Patient still having pain although improved. ADOLFO drain remained serosanguineous. Labs looked good. Tolerating diet. Objective - Vital Signs Vital signs: Vital Signs Temp 97.9 F 12/08/20 08:05 Pulse 72 12/08/20 11:30 Resp 16 12/08/20 08:05 BP 113/68 12/08/20 08:05 Pulse Ox 93 L 12/08/20 08:05 Intake & Output 12/07/20 12/08/20 12/08/20 18:59 06:59 18:59 Intake Total 480 100 Output Total 880 1030 350 Balance -400 -930 -350 Intake: Intake, IV Titration 100 Amount Piperacillin-Tazobactam 3 100 .375 gm In Sodium Chloride 0.9% 100 ml @ 25 mls/hr IVPB Q8H [facility] Rx#: [id number] Oral 480 Output: Drainage 30 80 Right Lower Abdomen 30 80 Urine 850 950 350 Other: Voiding Method Toilet # Voids 1 1 1 - Exam Abdomen: Soft, nondistended, incisions clean and dry - Labs CBC & Chem 7: 12/07/20 06:29 12/08/20 06:36 Labs: Abnormal Lab Results - Last 24 Hours (Table) 12/08/20 Range/Units 06:36 Chloride 109 H (98-107) mmol/L BUN 3 L (7-17) mg/dL Glucose 105 H (74-99) mg/dL Total Protein 4.9 L (6.3-8.2) g/dL Albumin 2.5 L (3.5-5.0) g/dL Microbiology - Last 24 Hours (Table) 12/05/20 19:50 Blood Culture - Preliminary Blood No Growth after 48 hours Assessment and Plan (1) Acute cholecystitis Narrative/Plan: Patient doing well today. Pain is improving. Continue ambulation. Plan discharge tomorrow. Current Visit: Yes Status: Acute Code(s): K81.0 - ACUTE CHOLECYSTITIS SNOMED Code(s): 62233961
[2020-12-08] MEDS: NICOTINE 14MG/24HR PATCH TRANSDERM SCH (16:31)
[2020-12-08] MEDS: SODIUM CHLORIDE 0.9% 1,000 ML IV SCH (19:57)
[2020-12-09] MEDS: HYDROmorphone 1 MG/ML 1 ML SYRINGE IVP PRN ×2 (00:10→06:01)
[2020-12-09] MEDS: IPRATROPIUM-ALBUTEROL 3 ML NEB INHALATION SCH ×4 (03:37→14:58)
[2020-12-09] MEDS: PIPERACILLIN-TAZOBACTAM 3.375 GM in SODIUM CHLORIDE 0.9% 100 ML IVPB SCH (04:03)
[2020-12-09] MEDS: SODIUM CHLORIDE 0.9% 1,000 ML IV SCH (04:04)
[2020-12-09] MEDS: PANTOPRAZOLE 40 MG/10 ML VIAL IVP SCH (09:17)
[2020-12-09] MEDS: HEPARIN SODIUM,PORCINE 5,000 UNIT/ML 1 ML VIAL SQ SCH (09:17)
[2020-12-09] MEDS: allopurinoL 100 MG TAB PO SCH (09:18)
[2020-12-09] MEDS: FLUoxetine HCL 20 MG CAP PO SCH (09:18)
[2020-12-09] MEDS: atenoloL 25 MG TAB PO SCH (09:18)
[2020-12-09] MEDS: HYDROcodone/APAP 7.5-325MG 1 EACH TAB PO PRN (09:25)
[2020-12-09 09:35] VITALS: BP 120/74; RESP 24; TEMP 98.2
--- NOTE | 2020-12-09 10:03 | P.PN ---
Subjective Progress Note Date: 12/09/20 HISTORY OF PRESENT ILLNESS This is a 65-year-old female patient of Dr. Forbes with past medical history of gastroesophageal reflux disease, hypertension, fibromyalgia. Patient was last admitted in March 2018 at which time she presented with chest pain and was ruled out for myocardial infarction with a normal heart catheterization that was done by Dr. Cronin. Patient states that she followed up one time in the office only. Patient complains of abdominal pain that she states she has had for at least 4-5 days with initially having nausea and vomiting. No diarrhea. She presented to [facility] emergency center was found to have an ultrasound multiple gallstones. Large common bile duct but no dilation of the intrahepatic bile ducts consistent with some chronic gallbladder dysfunction. Mild gallbladder wall thickening consistent with cholecystitis. CAT scan of the abdomen and pelvis revealed large gallbladder with gallbladder wall thickening consistent with cholecystitis. Mild fat stranding around the gallbladder. Mild ectasia of the biliary tree probably related to chronic gallbladder dysfunction. EKG was normal sinus rhythm with no acute ST changes. She has been afebrile, heart rate 74, blood pressure 117/66, pulse ox 96% on room air. Initial WBC 12.2 with repeat of 10.4. Hemoglobin 14.1. Sodium 135 otherwise electrolytes are completely normal as well as renal function. Blood sugar 134. Patient denies history of diabetes. Liver function tests are normal. Urinalysis cloudy with leukoesterase trace squamous cells are 14. Patient has been admitted under the care of Dr. Dong with plan for laparoscopic cholecystectomy later this afternoon. 12/07: Patient is doing slightly better continue to have slight nausea she still have significant pain in the right upper quadrant area from her surgical site still have drainage tube, still on clear liquid. Patient is having mild shortness of breath mostly COPD and chronic smoking she still slightly but diminished in the bases both lungs pain is not well-controlled so far with oral hydrocodone she is requiring it more often. We'll titrate activity controlled pain and possibly drainage tube out before discharge home with most likely would not happen until tomorrow. 12/08: Patient is doing very well pain is well controlled, drainage is much better so far, her abscess in the left thigh has improved significantly and highly draining anything. Patient is ambulating able to tolerate her oral meds and food with no complication most likely be discharge home today. 12/09: Patient is afebrile, heart rate 71, blood pressure 119/66, pulse ox 94% on room air. Wound culture has been finalized with normal skin michael. Patient states she slept well. She complains of shortness of breath earlier today but denies any shortness of breath at the time of evaluation. She has ADOLFO drain in place. Prescriptions were sent to her pharmacy yesterday. Wound to the posterior left thigh continues to improve. REVIEW OF SYSTEMS Constitutional: No fever, no chills, no night sweats. No weight change. No weakness, fatigue or lethargy. No daytime sleepiness. EENT: No headache. No blurred vision or double vision, no loss of vision. No loss of Hearing, no ringing in the ears, no dizziness. No nasal drainage or congestion. No epistaxis. No sore throat. Lungs: No shortness of breath, cough, no sputum production. No wheezing. Cardiovascular: No chest pain, no lower extremity edema. No palpitations. No paroxysmal nocturnal dyspnea. No orthopnea. No lightheadedness or dizziness. No syncopal episodes. Abdominal: Reports abdominal comfort. Resolved nausea, vomiting. No diarrhea. No constipation. No bloody or tarry stools.. No loss of appetite. Genitourinary: No dysuria, increased frequency, urgency. No urinary retention. Musculoskeletal: No myalgias. No muscle weakness, no gait dysfunction, no frequent falls. No back pain. No neck pain. Integumentary: No wounds, no lesions. No rash or pruritus. No unusual bruising. No change in hair or nails. Neurologic: No aphasia. No facial droop. No change in mentation. No head injury. No headache. No paralysis. No paresthesia. Psychiatric: No depression. No anxiety. No mood swings. Endocrine: No abnormal blood sugars. No weight change. No excessive sweating or thirst. No cold intolerance. PHYSICAL EXAMINATION Gen: This is a 65-year-old female. Patient is resting in bed appears to be comfortable and in no acute distress. HEENT: Head is atraumatic, normocephalic. Pupils equal, round. Sclerae is anicteric. NECK: Supple. No JVD. No lymphadenopathy. No thyromegaly. LUNGS: Clear to auscultation. No wheezes or rhonchi. No intercostal retractions. HEART: Regular rate and rhythm. No murmur. ABDOMEN: Soft. Bowel sounds are present. No masses. No tunnel tenderness. ADOLFO drain with serosanguineous fluid. EXTREMITIES: No pedal edema. No calf tenderness. Dorsalis pedis +2 bilaterally. Patient has draining abscess on the posterior left thigh. NEUROLOGICAL: Patient is awake, alert and oriented x3. Cranial nerves 2 through 12 are grossly intact. ASSESSMENT AND PLAN 1. Acute cholecystitis. Post cholecystectomy she is doing well patient had ascending cholangitis still on IV antibiotic with Zosyn at this point will cover culture is negative so far. 2. Left thigh abscess. Wound culture to be obtained. We'll continue Augmentin as an outpatient for total of 7 days no more drainage. Patient has been sent to pharmacy. 3. COPD: Continue patient on nebulizer management along with O2 still doing incentive spirometry 4. Tobacco use and dependence. Nicotine patch. 5. Gastroesophageal reflux disease and GI prophylaxis. Continue Protonix. 6. Chronic gout. Vision is usually on allopurinol 100 mg daily. 7. Hypertension. Continue atenolol 25 mg daily, hold Lasix 40 mg daily and pot assium. 8. Recurrent depression. Continue Prozac 40 mg daily. 9. History of hypothyroidism, resolved according to the patient and she has been off medication for 5-6 months. DVT prophylaxis. Heparin subcu. Discharge planning: Patient will be discharged home today. Impression and plan of care have been directed as dictated by the signing physician. Johanna Mitchell nurse practitioner acting as scribe for signing physician. Objective - Vital Signs Vital signs: Vital Signs Temp 98.1 F 12/09/20 03:02 Pulse 72 12/09/20 07:16 Resp 18 12/09/20 03:02 BP 119/66 12/09/20 03:02 Pulse Ox 94 L 12/09/20 03:02 Intake & Output 12/08/20 12/09/20 12/09/20 18:59 06:59 18:59 Intake Total 480 480 Output Total 380 20 Balance 100 460 Intake: Oral 480 480 Output: Drainage 30 20 Right Lower Abdomen 30 20 Urine 350 Other: Voiding Method Toilet # Voids 1 1 - Labs CBC & Chem 7: 12/07/20 06:29 12/08/20 06:36 Labs: Microbiology - Last 24 Hours (Table) 12/05/20 19:50 Blood Culture - Preliminary Blood No Growth after 72 hours 12/06/20 16:37 Gram Stain - Final Leg - Left Wound Culture - Final
[2020-12-09 10:43] VITALS: PULSE 80
--- NOTE | 2020-12-09 12:46 | P.DS ---
<Emma Hernandez - Last Filed: 12/09/20 12:40> Providers Expected date of discharge: 12/09/20 Hospital Course: Discharge diagnosis 1. Acute gangrenous cholecystitis with hydrops status post laparoscopic cholecystectomy Hospital course This is a 65-year-old female who presented to the hospital with right upper quadrant abdominal pain. She reports the pain goes across her upper abdomen and up into her chest. She's been having nausea and decreased appetite. Patient had abdominal ultrasound completed that shows multiple gallstones. Large common bile duct but no dilation of the intrahepatic bile ducts and this is consistent with some chronic gallbladder dysfunction. Mild gallbladder wall thickening stress of of cholecystitis. Computed tomography scan of abdomen and pelvis shows large gallbladder with gallbladder wall thickening consistent with cholecystitis. Mild fat stranding around the gallbladder. Mild ectasia of the biliary tree probably related to chronic gallbladder dysfunction. Patient is status post laparoscopic cholecystectomy for acute gangrenous cholecystitis. Her white count has normalized. She is afebrile. She is tolerating diet. Her pain is controlled. She is ambulating. She is passing gas. She is stable for discharge. Please refer to chart for any further details. 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 Signing provider agrees with the documented findings, assessment, and plan of care. Patient Condition at Discharge: Stable Plan - Discharge Summary Discharge Rx Participant: Yes New Discharge Prescriptions: New Amoxicillin/Potassium Clav [Augmentin 875-125 Tablet] 1 tab PO Q12HR 7 Days #14 tab Nicotine 14Mg/24Hr Patch [Habitrol] 1 patch TRANSDERM DAILY@1700 #30 patch Pantoprazole [Protonix] 40 mg PO DAILY #30 tablet. Docusate [Colace] 100 mg PO BID #30 capsule HYDROcodone/APAP 7.5-325MG [[place] 7.5-325] 1 tab PO Q6HR PRN 3 Days #12 tab PRN Reason: Pain Continue Potassium Chloride [Klor-Con 20] 20 meq PO DAILY Furosemide [Lasix] 40 mg PO DAILY FLUoxetine HCL [PROzac] 40 mg PO DAILY atenoloL [Tenormin] 25 mg PO DAILY Esomeprazole Magnesium [NexIUM] 40 mg PO DAILY HYDROcodone/APAP 10-325MG [[place] 10-325] 1 tab PO TID PRN PRN Reason: Pain Allopurinol [Zyloprim] 100 mg PO DAILY Discharge Medication List FLUoxetine HCL [PROzac] 40 mg PO DAILY 03/21/18 [History] Furosemide [Lasix] 40 mg PO DAILY 03/21/18 [History] Potassium Chloride [Klor-Con 20] 20 meq PO DAILY 03/21/18 [History] atenoloL [Tenormin] 25 mg PO DAILY 03/21/18 [History] Esomeprazole Magnesium [NexIUM] 40 mg PO DAILY 02/14/19 [History] Allopurinol [Zyloprim] 100 mg PO DAILY 12/05/20 [History] HYDROcodone/APAP 10-325MG [[place] 10-325] 1 tab PO TID PRN 12/05/20 [History] Amoxicillin/Potassium Clav [Augmentin 875-125 Tablet] 1 tab PO Q12HR 7 Days #14 tab 12/08/20 [Rx] Nicotine 14Mg/24Hr Patch [Habitrol] 1 patch TRANSDERM DAILY@1700 #30 patch 12/08/20 [Rx] Pantoprazole [Protonix] 40 mg PO DAILY #30 tablet. 12/08/20 [Rx] Docusate [Colace] 100 mg PO BID #30 capsule 12/09/20 [Rx] HYDROcodone/APAP 7.5-325MG [[place] 7.5-325] 1 tab PO Q6HR PRN 3 Days #12 tab 12/09/20 [Rx] Follow up Appointment(s)/Referral(s): Albaro Dong MD [Medical Doctor] - 1 Week (Dec @10:45AM) Nura Forbes DO [Primary Care Provider] - 1-2 days Activity/Diet/Wound Care/Special Instructions: May shower, no tub baths. No driving until cleared by Dr Dong. Activity as tolerated, rest as needed. Do not pick at your incisions, leave them alone. They have glue over them. Good handwashing. Drink plenty of fluids. Try to quick smoking. Smoking impedes the healing process. Call Dr Dong if you develop a fever, increase in pain, vomiting, or if you have any other questions or concerns. Call on Wednesday to make an appointment with Dr Alanis to be seen this week for a follow up appointment. Call on Wednesday to make an appointment with Dr Dong to be seen in 2 weeks for a follow up appointment. Start taking your antibiotic tomorrow, you will take it every 12 hours until the prescription is gone. Discharge Disposition: HOME SELF-CARE <Albaro Dong - Last Filed: 12/09/20 15:53> Providers Date of admission: 12/07/20 14:52 Attending physician: Albaro Dong Consults: 12/06/20 10:36 Consult Physician Stat Consulting Provider: Willi Awan Reason/Comments: medical clearance Do you want consulting provider notified?: Yes Primary care physician: Nrua Forbes - Discharge Diagnosis(es) (1) Acute cholecystitis Status: Acute Hospital Course: As above. Patient doing better today. Pain is improving. Tolerating diet. ADOLFO serosanguineous. We'll remove ADOLFO drain. Continue antibiotics postdischarge. Patient is agreeable and would like to go home. We'll discharge. Follow-up one week.
== END 2020-12-09 15:00 | disposition home or self-care (01) | DRG 418 ==
LOC: EC 15:42 → 4SSUR 19:22 → 6PED 21:09 → OBSVTOIN 12-07 14:52
PROVIDERS: ADMIT Surgery; ATTEND Surgery
PROC: 0FT44ZZ Resection of Gallbladder, Percutaneous Endoscopic Approach (ICD-10-PCS; principal; 2020-12-06 14:35)
DX: K83.09 Other cholangitis (principal); K80.00 Calculus of gallbladder with acute cholecystitis without obstruction; F33.9 Major depressive disorder, recurrent, unspecified; L02.416 Cutaneous abscess of left lower limb; K82.1 Hydrops of gallbladder; K82.A1 Gangrene of gallbladder in cholecystitis; J44.9 Chronic obstructive pulmonary disease, unspecified; K59.00 Constipation, unspecified; G89.29 Other chronic pain; M54.2 Cervicalgia; M54.9 Dorsalgia, unspecified; I10 Essential (primary) hypertension; E03.9 Hypothyroidism, unspecified; E78.5 Hyperlipidemia, unspecified; K21.9 Gastro-esophageal reflux disease without esophagitis; M79.7 Fibromyalgia; I25.2 Old myocardial infarction; F17.210 Nicotine dependence, cigarettes, uncomplicated; Z71.6 Tobacco abuse counseling; M1A.9XX0 Chronic gout, unspecified, without tophus (tophi); Z79.899 Other long term (current) drug therapy; Z98.1 Arthrodesis status; Z87.01 Personal history of pneumonia (recurrent); Z87.81 Personal history of (healed) traumatic fracture; Z98.890 Other specified postprocedural states; Z88.5 Allergy status to narcotic agent; Z88.8 Allergy status to other drugs, medicaments and biological substances; Z91.040 Latex allergy status; Z80.49 Family history of malignant neoplasm of other genital organs; Z82.3 Family history of stroke; Z82.49 Family history of ischemic heart disease and other diseases of the circulatory system; Z82.5 Family history of asthma and other chronic lower respiratory diseases; Z83.3 Family history of diabetes mellitus; Z83.49 Family history of other endocrine, nutritional and metabolic diseases; Z83.2 Family history of diseases of the blood and blood-forming organs and certain disorders involving the immune mechanism
CPT/HCPCS: 36415; 74177; 76705; 80053; 81001; 83605; 83690; 84484; 85025; 87040; 87070; 87205; 88304; 93005; 94640; 96361; 96365; 96375; 99285

== ENCOUNTER → 2021-04-03 | Outpatient (CLI) | payer MEDICARE ==
--- NOTE | 2021-04-03 16:13 | XR ---
EXAMINATION TYPE: XR abdomen 1V DATE OF EXAM: 04/03/2021 3:16 PM CLINICAL HISTORY: Patient complains of pain in the right side when bending over. Patient had gallbla dder removed in December 2020 TECHNIQUE: Single supine KUB image of the abdomen is obtained. COMPARISON: None. FINDINGS: Cholecystectomy clips. Nonspecific, nonobstructive bowel gas pattern. Multiple presumed pel bhaskar phleboliths. Mild degenerative changes of the hips. IMPRESSION: 1. Nonspecific, nonobstructive bowel gas pattern. 2. Cholecystectomy clips. 3. Mild osteophytosis of the hips.
== END | disposition home or self-care (01) ==
LOC: RADXRMAIN 14:49
PROVIDERS: ATTEND Family Medicine
DX: M25.751 Osteophyte, right hip (principal); M25.752 Osteophyte, left hip; Z90.49 Acquired absence of other specified parts of digestive tract
CPT/HCPCS: 74018

== ENCOUNTER → 2021-06-11 | Outpatient (CLI) | payer MEDICARE ==
--- NOTE | 2021-06-13 08:58 | MM ---
Reason for exam: screening (asymptomatic). Last mammogram was performed 5 years and 3 months ago. History: Patient is postmenopausal. Family history of breast cancer in paternal aunt and breast cancer in relative. Physical Findings: A clinical breast exam by your physician is recommended on an annual basis and results should be correlated with mammographic findings. MG 3D Screening Mammo W/Cad Bilateral CC and MLO view(s) were taken. Prior study comparison: March 26, 2016, bilateral MG screening mammo w CAD. August 31, 2014, bilateral MG screening mammo w CAD. There are scattered fibroglandular densities. Stable 10 o'clock circumscribed mass on the left. No significant changes when compared with prior studies. ASSESSMENT: Benign, BI-RAD 2 RECOMMENDATION: Routine screening mammogram of both breasts in 1 year.
== END | disposition home or self-care (01) ==
LOC: RADMAMWWP 14:41
PROVIDERS: ATTEND Family Medicine
DX: Z12.31 Encounter for screening mammogram for malignant neoplasm of breast (principal); Z78.0 Asymptomatic menopausal state; Z80.3 Family history of malignant neoplasm of breast
CPT/HCPCS: 77063; 77067

== ENCOUNTER → 2022-02-11 | Outpatient (CLI) | payer MEDICARE ==
--- NOTE | 2022-02-11 13:32 | US ---
EXAMINATION TYPE: US carotid duplex BILAT DATE OF EXAM: 02/11/2022 COMPARISON: NONE CLINICAL HISTORY: R55 SYNCOPE. dizziness EXAM MEASUREMENTS: RIGHT: Peak Systolic Velocity (PSV) cm/sec ----- Right CCA: 74.1 ----- Right ICA: 89.6 ----- Right ECA: 96.8 ICA/CCA ratio: 1.21 RIGHT: End Diastole cm/sec ----- Right CCA: 25.3 ----- Right ICA: 29.2 ----- Right ECA: 27.9 LEFT: Peak Systolic Velocity (PSV) cm/sec ----- Left CCA: 102 ----- Left ICA: 121 ----- Left ECA: 107 ICA/CCA ratio: 1.19 LEFT: End Diastole cm/sec ----- Left CCA: 31.2 ----- Left ICA: 42.2 ----- Left ECA: 21.4 VERTEBRALS (direction of flow): Right Vertebral: Antegrade Left Vertebral: Antegrade Rhythm: Normal Mild plaque bilateral bifurcations. no evidence of increased velocities IMPRESSION: Mild atherosclerotic changes bilaterally without hemodynamically significant stenosis se en in either internal carotid artery . Criteria for Assigning % of Stenosis / Diameter reduction (Estimation based on the indirect measurements of the internal carotid artery velocities (ICA PSV). 1. Normal (no stenosis)=ICA PSV < 125 cm/s: ratio < 2.0: ICA EDV<40 cm/s. 2. Less than 50% stenosis=ICA PSV < 125 cm/s: ratio < 2.0: ICA EDV<40 cm/s. 3. 50 to 69% stenosis=ICA PSV of 125 to 230 cm/s: ration 2.0 ? 4.0: ICA EDV 40-100 cm/s. 4. Greater than 70% stenosis to near occlusion= ICA PSV > 230 cm/s: ratio > 4.0: ICA EDV > 100 cm/s. 5. Near occlusion= ICA PSV velocities may be low or undetectable: variable ratio and ICA EDV. 6. Total occlusion=unable to detect flow.
--- NOTE | 2022-02-11 20:00 | ECHOF ---
Referral Reason:E04.1 Thyroid nodule Left lobe MEASUREMENTS -------- HEIGHT: 160.0 cm WEIGHT: 72.6 kg BP: RVIDd: 2.8 cm (< 3.3) IVSd: 1.2 cm (0.6 - 1.1) LVIDd: 4.1 cm (3.9 - 5.3) LVPWd: 1.2 cm (0.6 - 1.1) IVSs: 1.7 cm LVIDs: 2.6 cm LVPWs: 1.6 cm LA Diam: 3.3 cm (2.7 - 3.8) Ao Diam: 2.9 cm (2.0 - 3.7) AV Cusp: 1.7 cm (1.5 - 2.6) MV EXCURSION: 13.189 mm (> 18.000) MV EF SLOPE: 48 mm/s (70 - 150) EPSS: 0.8 cm MV E Emeterio: 0.68 m/s MV DecT: 329 ms MV A Emeterio: 0.85 m/s MV E/A Ratio: 0.80 RAP: 5.00 mmHg RVSP: 22.99 mmHg FINDINGS -------- Sinus rhythm. This was a technically adequate study. The left ventricular size is normal. There is borderline concentric left ventricular hypertrophy. Overall left ventricular systolic function is normal with, an EF between 60 - 65 %. The right ventricle is normal in size. The left atrium is normal in size. The right atrium is normal in size. Interatrial and interventricular septum intact. The aortic valve is trileaflet, and appears structurally normal. No aortic stenosis or regurgitation. The mitral valve is normal. Mild tricuspid regurgitation present. Right ventricular systolic pressure is normal at < 35 mmHg. Trace/mild (physiologic) pulmonic regurgitation. The aortic root size is normal. Normal inferior vena cava with normal inspiratory collapse consistent with estimated right atrial pre ssure of 5 mmHg. There is no pericardial effusion. CONCLUSIONS -------- 1. The left ventricular size is normal. 2. There is borderline concentric left ventricular hypertrophy. 3. Overall left ventricular systolic function is normal with, an EF between 60 - 65 %. 4. Mild tricuspid regurgitation present. 5. Trace/mild (physiologic) pulmonic regurgitation. 6. There is no pericardial effusion. RIVET DRIVER: Maryjane Maxwell [facility]
== END | disposition home or self-care (01) ==
LOC: RADECHMAIN 12:04
PROVIDERS: ATTEND Family Medicine
DX: I65.23 Occlusion and stenosis of bilateral carotid arteries (principal); I07.1 Rheumatic tricuspid insufficiency; E04.1 Nontoxic single thyroid nodule
CPT/HCPCS: 93306; 93880

== ENCOUNTER → 2022-02-12 | Outpatient (CLI) | payer MEDICARE ==
--- NOTE | 2022-02-12 20:42 | CT ---
EXAMINATION TYPE: CT brain wo con DATE OF EXAM: 02/12/2022 HISTORY: dizziness CT DLP: 1041.6 mGycm. Automated Exposure Control for Dose Reduction was Utilized. TECHNIQUE: CT scan of the head is performed without contrast. COMPARISON: CT brain October 27, 2011. FINDINGS: There is no acute intracranial hemorrhage or midline shift identified. There is mild diff use ventricular and sulcal prominence consistent with diffuse age-related cerebral atrophy. There is mild low-attenuation in the periventricular white matter consistent with chronic small vessel ischem ic change. The globes are intact and the visualized sinuses are clear. No suspicious fluid signal bilateral mastoid air cells. IMPRESSION: No acute intracranial hemorrhage or midline shift. There is mild diffuse age-related ce rebral atrophy and chronic small vessel ischemic change now present.
--- NOTE | 2022-02-12 20:45 | CT ---
EXAMINATION TYPE: CT chest wo con DATE OF EXAM: 02/12/2022 COMPARISON: CTA chest March 22, 2018 HISTORY: chest pain, SOB CT DLP: 751.1 mGycm. Automated Exposure Control for Dose Reduction was Utilized. TECHNIQUE: CT scan of the thorax is performed without IV contrast. High resolution protocol with 1 m m sequences obtained in 10 mm intervals in supine and prone technique FINDINGS: LUNGS: Mild peripheral reticulation and/or fibrotic change bilaterally is present. Occasional scatter ed small blebs in the upper lungs is seen. Mild biapical pleural/parenchymal scarring. No honeycombin g. No bronchiectasis. No pleural effusion or pneumothorax seen bilaterally. No obvious pulmonary mass es. MEDIASTINUM: Lack of IV contrast and technique are noted to limit evaluation for mediastinal and mauro cially hilar adenopathy. There are no definitive greater than 1 cm mediastinal lymph nodes. No card iomegaly or pericardial effusion is seen. OTHER: Surgical change lower cervical spine is partially imaged. Cholecystectomy clips are seen. IMPRESSION: Mild chronic changes without acute pulmonary process.
--- NOTE | 2022-02-12 22:13 | CT ---
EXAMINATION TYPE: CT abdomen pelvis wo con DATE OF EXAM: 02/12/2022 COMPARISON: CT dated 12/05/2020 HISTORY: epigastric pain CT DLP: 563.3 mGycm Automated exposure control for dose reduction was used. TECHNIQUE: Helical acquisition of images was performed from the lung bases through the pelvis. FINDINGS: LUNG BASES: Stable 3 mm right lung base nodule. Unremarkable lung bases otherwise. LIVER/GB: Interval cholecystectomy. No definite hepatic focal lesion by this nonenhanced CT scan. Dil ated CBD measuring up to 10 mm, probably related to postcholecystectomy status. PANCREAS: No significant abnormality is seen. SPLEEN: No significant abnormality is seen. ADRENALS: No significant abnormality is seen. KIDNEYS: No significant abnormality is seen. FREE AIR: No free air is visualized RETROPERITONEAL ADENOPATHY: None visualized REPRODUCTIVE ORGANS: Stable left ovarian/adnexal cyst measuring up to 2.3 cm, please correlate with p elvic ultrasound results. No gross uterine or adnexal mass. URINARY BLADDER: Nondistended. PELVIC ADENOPATHY: None visualized. OSSEOUS STRUCTURES: Osteopenia. Severe left L4-5 facet osteoarthropathy. No aggressive bone lesion. BOWEL: Unremarkable nondistended stomach, duodenum and small bowel. An area of epiploic appendagitis rather than omental fat infarct is seen along the anterior aspect of the inferior portion of the will cending colon. Unremarkable remainder of the colon. OTHER: Scattered minimal arterial atherosclerotic calcifications. No sizable ascites. Small fat-conta ining umbilical hernia. IMPRESSION: No significant abnormality seen in the upper abdomen to explain the patient's presentation of epigast nataly pain by this nonenhanced CT scan. Interval changes and incidental findings as detailed above.
== END | disposition home or self-care (01) ==
LOC: RADCTMAIN 17:08
PROVIDERS: ATTEND Family Medicine
DX: G31.89 Other specified degenerative diseases of nervous system (principal); I67.82 Cerebral ischemia; R10.84 Generalized abdominal pain; R07.9 Chest pain, unspecified; R10.13 Epigastric pain
CPT/HCPCS: 70450; 71250; 74176

== ENCOUNTER 2022-03-03 01:08 | Observation (INO) | payer MEDICARE ==
[2022-03-03] MEDS ORDERED: IPRATROPIUM-ALBUTEROL 3 ML NEB INHALATION STA (01:13)
[2022-03-03 01:50] LABS: Albumin 4.2 g/dL (3.5-5.0); Potassium 3.5 mmol/L (3.5-5.1); Total Bilirubin 0.4 mg/dL (0.2-1.3); Total Protein 7.1 g/dL (6.3-8.2)
[2022-03-03 02:05] LABS: INR 0.9 (<1.2); Partial Thromboplastin Time 22.3 sec (22.0-30.0); Prothrombin Time 10.3 sec (9.0-12.0)
--- NOTE | 2022-03-03 02:08 | XR ---
EXAMINATION TYPE: XR chest 1V DATE OF EXAM: 03/03/2022 COMPARISON: 03/21/2018 HISTORY: Short of breath TECHNIQUE: FINDINGS: Heart is normal. Lungs are clear of consolidation. There is no heart failure. There are no hilar masses. There is small linear density left lung base. There is cervical spine fusion surgery. T here are chest leads. IMPRESSION: Minimal subsegmental atelectasis left lung base. Normal heart.
[2022-03-03 02:33] LABS: HCT 45.5 % (34.0-46.0); HGB 15.2 gm/dL (11.4-16.0); MCH 29.4 pg (25.0-35.0); MCHC 33.4 g/dL (31.0-37.0); MCV 87.9 fL (80.0-100.0); Mean Platelet Volume 7.5; Platelet Count 379 k/uL (150-450); RBC 5.17 m/uL (3.80-5.40); WBC 14.3 k/uL (3.8-10.6)
--- NOTE | 2022-03-03 02:33 | ED ---
SOB HPI - General Chief Complaint: Upper Respiratory Infection Stated Complaint: HATTIE Time Seen by Provider: 03/03/22 01:12 Source: EMS Mode of arrival: EMS - History of Present Illness Initial Comments: This patient is 66-year-old woman who presents to be evaluated for cough and shortness of breath. It had started earlier in the day but got progressively worse after she was exposed to fumes from burning oils in the home. The patient states that she has not had fever or chills. No chest pain. Cough is largely nonproductive. No leg pain or swelling. No change in urination or bowel movements. MD Complaint: shortness of breath, cough -: hour(s) Severity scale (1-10): 0 Consistency: constant Improves With: nothing Worsens With: nothing Associated Symptoms: denies other symptoms, cough Treatments Prior to Arrival: none - Related Data Home Medications Medication Instructions Recorded Confirmed FLUoxetine HCL [PROzac] 40 mg PO DAILY 03/21/18 12/05/20 Furosemide [Lasix] 40 mg PO DAILY 03/21/18 12/05/20 Potassium Chloride [Klor-Con 20] 20 meq PO DAILY 03/21/18 12/05/20 atenoloL [Tenormin] 25 mg PO DAILY 03/21/18 12/05/20 Esomeprazole Magnesium [NexIUM] 40 mg PO DAILY 02/14/19 12/05/20 Allopurinol [Zyloprim] 100 mg PO DAILY 12/05/20 12/05/20 HYDROcodone/APAP 10-325MG [[place] 1 tab PO TID PRN 12/05/20 12/05/20 10-325] Previous Rx's Medication Instructions Recorded Amoxicillin/Potassium Clav 1 tab PO Q12HR 7 Days #14 tab 12/08/20 [Augmentin 875-125 Tablet] Nicotine 14Mg/24Hr Patch [Habitrol] 1 patch TRANSDERM DAILY@1700 #30 12/08/20 patch Pantoprazole [Protonix] 40 mg PO DAILY #30 tablet. 12/08/20 Docusate [Colace] 100 mg PO BID #30 capsule 12/09/20 HYDROcodone/APAP 7.5-325MG [[place] 1 tab PO Q6HR PRN 3 Days #12 tab 12/09/20 7.5-325] Allergies Allergy/AdvReac Type Severity Reaction Status Date / Time naproxen [From Aleve] Allergy Severe Nausea & Verified 03/03/22 01:13 Vomiting bupropion HCl Allergy Rash/Hives Verified 03/03/22 01:13 [From Wellbutrin] Corticosteroids Allergy Unknown Verified 03/03/22 01:13 (Glucocorticoids) diclofenac potassium Allergy Anaphylaxis Verified 03/03/22 01:13 [From Cataflam] duloxetine HCl Allergy Rash/Hives Verified 03/03/22 01:13 [From Cymbalta] gabapentin [From Neurontin] Allergy Rash/Hives Verified 03/03/22 01:13 Latex, Natural Rubber Allergy Itching Verified 03/03/22 01:13 paroxetine HCl [From Paxil] Allergy Rash/Hives Verified 03/03/22 01:13 tramadol Allergy Unknown Verified 03/03/22 01:13 Review of Systems ROS Statement: Those systems with pertinent positive or pertinent negative responses have been documented in the HPI. ROS Other: All systems not noted in ROS Statement are negative. Constitutional: Denies: fever, chills Respiratory: Reports: cough, dyspnea, wheezes. Denies: hemoptysis Cardiovascular: Denies: chest pain, palpitations, orthopnea, edema, syncope Gastrointestinal: Denies: abdominal pain, vomiting, diarrhea Genitourinary: Denies: dysuria, hematuria Musculoskeletal: Denies: back pain Skin: Denies: rash Neurological: Denies: headache, weakness Past Medical History Past Medical History: Fibromyalgia, GERD/Reflux, Hypertension, Pneumonia Additional Past Medical History / Comment(s): Ruptured disc, bronchitis, fractured tailbone. Fractured right and left arm, wrists. Right shoulder fracture. Sees Dr. Perales for pain management. Chronic back pain. Last Myocardial Infarction Date:: 2018 History of Any Multi-Drug Resistant Organisms: None Reported Past Surgical History: Cholecystectomy, Heart Catheterization, Orthopedic Surgery Additional Past Surgical History / Comment(s): c4, c5, c6 fusion, right rotator cuff repair, normal heart catheterization in 2018. Past Anesthesia/Blood Transfusion Reactions: No Reported Reaction, Motion Sickness Past Psychological History: Depression Smoking Status: Current every day smoker, Light tobacco smoker Past Alcohol Use History: None Reported Past Drug Use History: None Reported - Past Family History Father History Unknown: Yes Family Medical History: CVA/TIA, Pulmonary Embolus Additional Family Medical History / Comment(s): Father of a CVA in his 80s. Mother Family Medical History: Cancer, Coronary Artery Disease (CAD), Hyperlipidemia, Hypertension Additional Family Medical History / Comment(s): Mother had uterine cancer with surgery. She at the age of 87yrs. Brother(s) History Unknown: Yes Sister(s) Family Medical History: Coronary Artery Disease (CAD) Daughter(s) Family Medical History: Asthma Son(s) History Unknown: Yes General Exam General appearance: alert, in distress Head exam: Present: atraumatic, normocephalic Eye exam: Present: normal appearance. Absent: scleral icterus, conjunctival injection Neck exam: Present: normal inspection Respiratory exam: Present: respiratory distress (Mild tachypnea), wheezes. Absent: rales, rhonchi, stridor, accessory muscle use, decreased breath sounds, prolonged expiratory Cardiovascular Exam: Present: normal rhythm, tachycardia, normal heart sounds. Absent: systolic murmur, diastolic murmur, rubs, gallop GI/Abdominal exam: Present: soft. Absent: distended, tenderness, guarding, rebound, rigid, mass Extremities exam: Present: normal inspection, normal capillary refill. Absent: pedal edema, calf tenderness Back exam: Present: normal inspection. Absent: CVA tenderness (R), CVA te nderness (L) Neurological exam: Present: alert Skin exam: Present: warm, dry, intact, normal color. Absent: rash Course Vital Signs 03/03/22 03/03/22 03/03/22 01:09 01:13 01:15 Temperature 98.5 F Pulse Rate 117 H 105 H Respiratory 28 H 26 H 28 H Rate Blood Pressure 152/119 O2 Sat by Pulse 93 L 93 L Oximetry 03/03/22 03/03/22 03/03/22 01:21 01:28 03:49 Temperature Pulse Rate 107 H 104 H 121 H Respiratory 23 Rate Blood Pressure 128/93 O2 Sat by Pulse 96 Oximetry 03/03/22 03/03/22 04:58 05:26 Temperature 102.3 F H Pulse Rate 105 H Respiratory 22 Rate Blood Pressure 125/75 O2 Sat by Pulse 94 L Oximetry Medical Decision Making - Lab Data Result diagrams: 03/03/22 01:25 03/03/22 01:25 Lab Results 03/03/22 03/03/22 03/03/22 Range/Units 01:25 01:25 01:25 WBC 14.3 H (3.8-10.6) k/uL RBC 5.17 (3.80-5.40) m/uL Hgb 15.2 (11.4-16.0) gm/dL Hct 45.5 (34.0-46.0) % MCV 87.9 (80.0-100.0) fL MCH 29.4 (25.0-35.0) pg MCHC 33.4 (31.0-37.0) g/dL RDW 15.0 (11.5-15.5) % Plt Count 379 (150-450) k/uL MPV 7.5 Neutrophils % (Manual) 64 % Band Neuts % (Manual) 7 % Lymphocytes % (Manual) 24 % Monocytes % (Manual) 5 % Neutrophils # (Manual) 10.10 H (1.3-7.7) k/uL Lymphocytes # (Manual) 3.43 (1.0-4.8) k/uL Monocytes # (Manual) 0.72 (0-1.0) k/uL Nucleated RBCs 0 (0-0) /100 WBC Manual Slide Review Performed Polychromasia Present Anisocytosis (manual) Present PT 10.3 (9.0-12.0) sec INR 0.9 (<1.2) APTT 22.3 (22.0-30.0) sec D-Dimer 0.83 H (<0.60) mg/L FEU Sodium 141 (137-145) mmol/L Potassium 3.5 (3.5-5.1) mmol/L Chloride 102 (98-107) mmol/L Carbon Dioxide 30 (22-30) mmol/L Anion Gap 9 mmol/L BUN 12 (7-17) mg/dL Creatinine 0.91 (0.52-1.04) mg/dL Est GFR (CKD-EPI)AfAm 77 (>60 ml/min/1.73 sqM) Est GFR (CKD-EPI)NonAf 66 (>60 ml/min/1.73 sqM) Glucose 134 H (74-99) mg/dL Lactic Ac Sepsis Rflx Plasma Lactic Acid [place] (0.7-2.0) mmol/L Calcium 10.0 (8.4-10.2) mg/dL Total Bilirubin 0.4 (0.2-1.3) mg/dL AST 26 (14-36) U/L ALT 19 (4-34) U/L Alkaline Phosphatase 107 (38-126) U/L Troponin I (0.000-0.034) ng/mL NT-Pro-B Natriuret Pep pg/mL Total Protein 7.1 (6.3-8.2) g/dL Albumin 4.2 (3.5-5.0) g/dL Coronavirus (PCR) (Not Detectd) 03/03/22 03/03/22 03/03/22 Range/Units 01:25 01:25 01:25 WBC (3.8-10.6) k/uL RBC (3.80-5.40) m/uL Hgb (11.4-16.0) gm/dL Hct (34.0-46.0) % MCV (80.0-100.0) fL MCH (25.0-35.0) pg MCHC (31.0-37.0) g/dL RDW (11.5-15.5) % Plt Count (150-450) k/uL MPV Neutrophils % (Manual) % Band Neuts % (Manual) % Lymphocytes % (Manual) % Monocytes % (Manual) % Neutrophils # (Manual) (1.3-7.7) k/uL Lymphocytes # (Manual) (1.0-4.8) k/uL Monocytes # (Manual) (0-1.0) k/uL Nucleated RBCs (0-0) /100 WBC Manual Slide Review Polychromasia Anisocytosis (manual) PT (9.0-12.0) sec INR (<1.2) APTT (22.0-30.0) sec D-Dimer (<0.60) mg/L FEU Sodium (137-145) mmol/L Potassium (3.5-5.1) mmol/L Chloride (98-107) mmol/L Carbon Dioxide (22-30) mmol/L Anion Gap mmol/L BUN (7-17) mg/dL Creatinine (0.52-1.04) mg/dL Est GFR (CKD-EPI)AfAm (>60 ml/min/1.73 sqM) Est GFR (CKD-EPI)NonAf (>60 ml/min/1.73 sqM) Glucose (74-99) mg/dL Lactic Ac Sepsis Rflx Plasma Lactic Acid Conner 2.1 H* (0.7-2.0) mmol/L Calcium (8.4-10.2) mg/dL Total Bilirubin (0.2-1.3) mg/dL AST (14-36) U/L ALT (4-34) U/L Alkaline Phosphatase (38-126) U/L Troponin I <0.012 (0.000-0.034) ng/mL NT-Pro-B Natriuret Pep 124 pg/mL Total Protein (6.3-8.2) g/dL Albumin (3.5-5.0) g/dL Coronavirus (PCR) (Not Detectd) 03/03/22 03/03/22 Range/Units 01:52 04:20 WBC (3.8-10.6) k/uL RBC (3.80-5.40) m/uL Hgb (11.4-16.0) gm/dL Hct (34.0-46.0) % MCV (80.0-100.0) fL MCH (25.0-35.0) pg MCHC (31.0-37.0) g/dL RDW (11.5-15.5) % Plt Count (150-450) k/uL MPV Neutrophils % (Manual) % Band Neuts % (Manual) % Lymphocytes % (Manual) % Monocytes % (Manual) % Neutrophils # (Manual) (1.3-7.7) k/uL Lymphocytes # (Manual) (1.0-4.8) k/uL Monocytes # (Manual) (0-1.0) k/uL Nucleated RBCs (0-0) /100 WBC Manual Slide Review Polychromasia Anisocytosis (manual) PT (9.0-12.0) sec INR (<1.2) APTT (22.0-30.0) sec D-Dimer (<0.60) mg/L FEU Sodium (137-145) mmol/L Potassium (3.5-5.1) mmol/L Chloride (98-107) mmol/L Carbon Dioxide (22-30) mmol/L Anion Gap mmol/L BUN (7-17) mg/dL Creatinine (0.52-1.04) mg/dL Est GFR (CKD-EPI)AfAm (>60 ml/min/1.73 sqM) Est GFR (CKD-EPI)NonAf (>60 ml/min/1.73 sqM) Glucose (74-99) mg/dL Lactic Ac Sepsis Rflx Y Plasma Lactic Acid Conner (0.7-2.0) mmol/L Calcium (8.4-10.2) mg/dL Total Bilirubin (0.2-1.3) mg/dL AST (14-36) U/L ALT (4-34) U/L Alkaline Phosphatase (38-126) U/L Troponin I (0.000-0.034) ng/mL NT-Pro-B Natriuret Pep pg/mL Total Protein (6.3-8.2) g/dL Albumin (3.5-5.0) g/dL Coronavirus (PCR) Not Detected (Not Detectd) - EKG Data -: EKG Interpreted by Me EKG shows normal: sinus rhythm, axis (Normal), intervals (Normal), QRS complexes (Low voltage QRS complex) Rate: tachycardia (Rate 100 bpm) Interpretation: nonspecific ST-T wave changes Disposition Clinical Impression: COPD exacerbation Disposition: ADMITTED IP TO THIS HOSP Condition: Fair Is patient prescribed a controlled substance at d/c from ED?: No
[2022-03-03 03:01] LABS: Anisocytosis (M) Present; Band Neutrophils % 7 %; Lymphocytes # (M) 3.43 k/uL (1.0-4.8); Monocytes # (M) 0.72 k/uL (0-1.0); Neutrophils % (M) 64 %; Nucleated Red Blood Cells 0 /100 WBC (0-0); Total Cells Counted 100
[2022-03-03 03:02] LABS: Polychromasia Present
--- NOTE | 2022-03-03 03:31 | CT ---
EXAMINATION TYPE: CT chest angio for PE DATE OF EXAM: 03/03/2022 COMPARISON: Short of breath HISTORY: pe CT DLP: 323.9 mGycm Automated exposure control for dose reduction was used. CONTRAST: Performed with IV Contrast, patient injected with 50 mL of Isovue 370. Images obtained from the thoracic inlet through the diaphragm with IV contrast. There are 3-D post pr ocessed images. There is no mediastinal adenopathy. There are no hilar masses. Thoracic aorta is intact. No aneurysm or dissection. There is no evidence of filling defect in the pulmonary arteries. Heart size is normal. No pericardial effusion. No pleural effusion. There is minimal atelectasis in t he lingula left upper lobe. There is no pleural effusion or pneumothorax. Thoracic spine is intact. T here is no compression fracture. Sternum is intact. The upper abdominal soft tissues are intact. IMPRESSION: No evidence of pulmonary embolism. Minimal atelectasis in the lingula left upper lobe. Normal heart.
[2022-03-03] MEDS ORDERED: ALBUTEROL NEBULIZED 2.5 MG/3 ML INHALATION PRN (04:38)
[2022-03-03] MEDS ORDERED: AZITHROMYCIN 500 MG TAB PO STA (04:42)
[2022-03-03] MEDS ORDERED: ACETAMINOPHEN TAB 325 MG TAB PO STA (04:58)
[2022-03-03] MEDS ORDERED: SODIUM CHLORIDE 0.9% 500 ML 500 ML IV STA (06:44)
[2022-03-03] MEDS ORDERED: SODIUM CHLORIDE 0.9% 1,000 ML IV STA (06:44)
[2022-03-03] MEDS ORDERED: SODIUM CHLORIDE 0.9% 1,000 ML IV ONE (06:44)
[2022-03-03] MEDS: IPRATROPIUM-ALBUTEROL 3 ML NEB INHALATION SCH ×4 (07:22→19:13)
--- NOTE | 2022-03-03 13:01 | P.HPIM ---
History of Present Illness H&P Date: 03/03/22 History of Presenting Illness: Patient is a 66-year-old female with a past medical history of COPD and hypertension. She presented to the emergency department with a chief complaint of increased cough and shortness of breath. Patient reports this began approximately one week ago and progressively worsened. Patient states it has been accompanied by chills and diaphoresis. Patient reports these symptoms significantly worsened after burning some oils in her home and she was no longer able to catch her breath so she had to come to the emergency department for evaluation. Patient denies any headache, lightheadedness, dizziness, chest pain, palpitations, abdominal pain, nausea, vomiting, or experiencing any numbness/tingling/weakness/swelling in her extremities. In the emergency department patient underwent full evaluation. She was found to be tachycardic with heart rate of 105 and tachypnea with respiratory rate of 22 SpO2 was 94% on 3 L. Labs obtained revealing leukocytosis with WBC count of 14.3 and lactic acidosis with initial lactate of 2.4 with repeat lactate of 2.0 status post sepsis bolus troponin negative at less than 0.012 and proBNP 124. Covid PCR was negative. D-dimer was elevated at 0.83. Patient underwent CTA of chest which was negative for pulmonary emboli revealing minimal atelectasis in the lingula left upper lobe. Chest x-ray revealing minimal subsegmental atelectasis at left lung base. EKG revealing sinus tachycardia at 100 bpm with no noted T-wave or ST abnormalities. Patient was started on IV antibiotics azithromycin and Omega ephin and admitted under our services. Review of systems: Pertinent positives and negatives as discussed in HPI, a complete review of systems was performed and all other systems are negative. Physical exam: Vital signs reviewed and stable. General: Nontoxic, no distress and appears stated age. Derm: Skin warm and dry, normal coloration for ethnicity. Head: Atraumatic, normocephalic and symmetric. Eyes: EOMs intact, no lid lag, and anicteric sclera Mouth: no lip lesions, mucus membranes moist Cardiovascular: regular rate and rhythm with normal S1S2, no murmur, positive posterior tibial pulses bilaterally, and cap refill < 2 seconds. Lungs: Respirations even, regular, and unlabored on room air. Lungs diffuse rhonchi left upper and mid lung. No rales, no wheezing, and no accessory muscle usage. Abdominal: Obese abdomen soft, nontender to palpation, no guarding, no appreciable organomegaly Ext: ROM intact. No gross muscle atrophy, no edema, no contractures Neuro: Speech clear, face symmetrical and CN II-XII grossly intact with no noted focal neuro deficits Psych: Alert and oriented to person, place, time, and situation. Appropriate and pleasant affect. Assessment and Plan of Care: Community Aquired Pneumonia COPD with acute exacerbation secondary to above Lactic acidosis, resolved with IV fluid bolus -Oxygenation to be administered and titrated as needed to maintain SPO2 equal to or greater than 92% -Telemetry monitoring. -Continuous Pulse-oximetry -Duonebs as needed for SOB and/or wheezing -Incentive Spirometry -Steroids: -Antibiotics: Rocephin and Azithromycin -Symptomatic care and pain management Hypertension -Monitor vital signs and continue daily medication regimen Elevated d-dimer, CT negative for PE The patient is admitted with an anticipated less than 2 midnight stay for evaluation of community-acquired pneumonia and COPD with acute exacerbation CODE STATUS: Full code DVT prophylaxis: Heparin Discussed with: Patient and RN Anticipated discharge date: 1-[address]: Home A total of 42 minutes was spent on the care of this complex patient more than 50% of the time was spent in counseling and care coordination. Past Medical History Past Medical History: Fibromyalgia, GERD/Reflux, Hypertension, Pneumonia Additional Past Medical History / Comment(s): Ruptured disc, bronchitis, fractured tailbone. Fractured right and left arm, wrists. Right shoulder fracture. Sees Dr. Perales for pain management. Chronic back pain. Last Myocardial Infarction Date:: 2018 History of Any Multi-Drug Resistant Organisms: None Reported Past Surgical History: Cholecystectomy, Heart Catheterization, Orthopedic Surgery Additional Past Surgical History / Comment(s): c4, c5, c6 fusion, right rotator cuff repair, normal heart catheterization in 2018. Past Anesthesia/Blood Transfusion Reactions: No Reported Reaction, Motion Sickness Past Psychological History: Depression Smoking Status: Current every day smoker, Light tobacco smoker Past Alcohol Use History: None Reported Past Drug Use History: None Reported - Past Family History Father History Unknown: Yes Family Medical History: CVA/TIA, Pulmonary Embolus Additional Family Medical History / Comment(s): Father of a CVA in his 80s. Mother Family Medical History: Cancer, Coronary Artery Disease (CAD), Hyperlipidemia, Hypertension Additional Family Medical History / Comment(s): Mother had uterine cancer with surgery. She at the age of 87yrs. Brother(s) History Unknown: Yes Sister(s) Family Medical History: Coronary Artery Disease (CAD) Daughter(s) Family Medical History: Asthma Son(s) History Unknown: Yes Medications and Allergies Home Medications Medication Instructions Recorded Confirmed Type Furosemide [Lasix] 40 mg PO DAILY 03/21/18 03/03/22 History atenoloL [Tenormin] 25 mg PO HS 03/21/18 03/03/22 History Esomeprazole Magnesium [NexIUM] 40 mg PO DAILY 02/14/19 03/03/22 History HYDROcodone/APAP 10-325MG [[place] 1 tab PO TID 12/05/20 03/03/22 History 10-325] Butalbital/Acetaminophen 50-325mg 1 tab PO DAILY PRN 03/03/22 03/03/22 History Ergocalciferol [Vitamin D2 (1250 1,250 mcg PO SA 03/03/22 03/03/22 History Mcg = [id number] Iu)] FLUoxetine HCL [[place]] 40 mg PO HS 03/03/22 03/03/22 History Levothyroxine Sodium [Synthroid] 50 mcg PO HS 03/03/22 03/03/22 History Albuterol Sulfate [Proair Hfa] 1 - 2 puff INHALATION Q6HR PRN 30 03/06/22 Rx Days #8.5 gm Budesonide-Formot 160-4.5 Mcg 2 puff INHALATION RT-BID 30 Days 03/06/22 Rx [Symbicort 160-4.5 Mcg Inhaler] #30 gm Cefdinir [Omnicef] 300 mg PO BID 5 Days #10 cap 03/06/22 Rx methylPREDNISolone Dose Pack 4 mg PO DIRECTED #21 tab 03/06/22 Rx [Medrol Dose Pack] Allergies Allergy/AdvReac Type Severity Reaction Status Date / Time bupropion HCl Allergy Rash/Hives Verified 03/03/22 07:33 [From Wellbutrin] diclofenac potassium Allergy Anaphylaxis Verified 03/03/22 07:33 [From Cataflam] duloxetine HCl Allergy Rash/Hives Verified 03/03/22 07:33 [From Cymbalta] gabapentin [From Neurontin] Allergy Rash/Hives Verified 03/03/22 07:33 Latex, Natural Rubber Allergy Itching Verified 03/03/22 07:33 paroxetine HCl [From Paxil] Allergy Rash/Hives Verified 03/03/22 07:33 tramadol Allergy Unknown Verified 03/03/22 07:33 naproxen [From Aleve] AdvReac Severe Nausea & Verified 03/03/22 07:33 Vomiting Corticosteroids AdvReac Confusion Verified 03/03/22 07:33 (Glucocorticoids) Physical Exam Vitals: Vital Signs Temp Pulse Resp BP Pulse Ox 03/03/22 05:26 105 H 22 125/75 94 L 03/03/22 04:58 102.3 F H 03/03/22 03:49 121 H 23 128/93 96 03/03/22 01:28 104 H 03/03/22 01:21 107 H 03/03/22 01:15 28 H 03/03/22 01:13 105 H 26 H 93 L 03/03/22 01:09 98.5 F 117 H 28 H 152/119 93 L Intake and Output 03/02/22 03/03/22 03/03/22 22:59 06:59 14:59 Other: Weight 70.307 kg Results CBC & Chem 7: 03/04/22 06:14 03/04/22 06:14 Labs: Abnormal Lab Results - Last 24 Hours (Table) 03/03/22 03/03/22 03/03/22 Range/Units 01:25 01:25 01:25 WBC 14.3 H (3.8-10.6) k/uL Neutrophils # (Manual) 10.10 H (1.3-7.7) k/uL D-Dimer 0.83 H (<0.60) mg/L FEU Glucose 134 H (74-99) mg/dL Plasma Lactic Acid Conner (0.7-2.0) mmol/L 03/03/22 03/03/22 Range/Units 01:25 05:11 WBC (3.8-10.6) k/uL Neutrophils # (Manual) (1.3-7.7) k/uL D-Dimer (<0.60) mg/L FEU Glucose (74-99) mg/dL Plasma Lactic Acid Conner 2.1 H* 2.4 H* (0.7-2.0) mmol/L Assessment and Plan Plan: This documentation was completed by the Nurse Practitioner. History, physical examination including assessment and plan were only completed by Nurse Practitioner and was NOT evaluated by myself the attending physician including all plan of care including discharge planning and documentation. I did NOT participate or have any communication regarding the patient, including orders, imaging, diagnostic work up, consultations, communication with registered RN/ecg technician and discharge planning/instructions. I will be co-signing this d ocumentation as this is a requirement per [facility] and agreement.
[2022-03-03] MEDS: predniSONE 50 MG TAB PO SCH (13:24)
[2022-03-03] MEDS: HYDROcodone/APAP 10-325MG 1 EACH TAB PO SCH ×2 (13:28→20:30)
[2022-03-03] MEDS: HEPARIN SODIUM,PORCINE/PF 5,000 UNIT/0.5 ML SYRINGE SQ SCH (17:10)
[2022-03-03] MEDS: atenoloL 25 MG TAB PO SCH (20:30)
[2022-03-03] MEDS: FLUoxetine HCL 20 MG CAP PO SCH (20:30)
[2022-03-03] MEDS: LEVOTHYROXINE 50 MCG TAB PO SCH (20:30)
[2022-03-04] MEDS: HEPARIN SODIUM,PORCINE/PF 5,000 UNIT/0.5 ML SYRINGE SQ SCH ×4 (01:02→22:26)
[2022-03-04] MEDS: AZITHROMYCIN 500 MG TAB PO SCH (07:37)
[2022-03-04] MEDS: predniSONE 50 MG TAB PO SCH (07:38)
[2022-03-04] MEDS: HYDROcodone/APAP 10-325MG 1 EACH TAB PO SCH ×3 (07:38→22:26)
[2022-03-04] MEDS: PANTOPRAZOLE 40 MG TABLET PO SCH (07:39)
[2022-03-04] MEDS: IPRATROPIUM-ALBUTEROL 3 ML NEB INHALATION SCH ×4 (08:57→20:19)
[2022-03-04 09:16] LABS: HCT 35.2 % (37.2-46.3); HGB 11.1 g/dL (12.0-15.0); MCH 28.1 pg (27.0-32.0); MCHC 31.5 g/dL (32.0-37.0); MCV 89.1 fL (80.0-97.0); NRBC Per 100 WBC 0 /100 WBCS (0.0-0.0); Platelet Count 277 X 10*3/uL (140-440); RBC 3.95 X 10*6/uL (4.10-5.20); RDW 14.6 % (11.5-14.5); WBC 15.62 X 10*3/uL (4.50-10.00)
[2022-03-04 09:28] LABS: ALT 16 U/L (8-44); AST 15 U/L (13-35); African American GFR (CKD) 105.4 (60.0-200.0); Albumin 3.5 g/dL (3.8-4.9); Albumin/Globulin Ratio 1.75 (1.60-3.17); Alkaline Phosphatase 90 U/L (41-126); BUN/Creat Ratio 16.14 Ratio (12.00-20.00); Blood Urea Nitrogen 11.3 mg/dL (9.0-27.0); Calcium 9.5 mg/dL (8.7-10.3); Carbon Dioxide 25.6 mmol/L (20.0-27.5); Chloride 109 mmol/L (96-109); Glucose 101 mg/dL (70-110); Magnesium 2.1 mg/dL (1.5-2.4); Non-African American GFR(CKD) 90.9 (60.0-200.0); Potassium 3.9 mmol/L (3.5-5.5); Sodium 143 mmol/L (135-145); Total Bilirubin <0.15 mg/dL (0.30-1.20); Total Protein 5.5 g/dL (6.2-8.2)
[2022-03-04] MEDS ORDERED: guaiFENesin-Coden 100-10MG/5ML 10 ML CUP PO PRN (14:21)
--- NOTE | 2022-03-04 14:22 | P.PN ---
Subjective Progress Note Date: 03/04/22 Hospital course: Patient is a 66-year-old female with a past medical history of COPD and hypertension. She presented to the emergency department with a chief complaint of increased cough and shortness of breath. Patient reports this began approximately one week ago and progressively worsened. Patient states it has been accompanied by chills and diaphoresis. Patient reports these symptoms significantly worsened after burning some oils in her home and she was no longer able to catch her breath so she had to come to the emergency department for evaluation. Patient denies any headache, lightheadedness, dizziness, chest pain, palpitations, abdominal pain, nausea, vomiting, or experiencing any numbness/tingling/weakness/swelling in her extremities. In the emergency department patient underwent full evaluation. She was found to be tachycardic with heart rate of 105 and tachypnea with respiratory rate of 22 SpO2 was 94% on 3 L. Labs obtained revealing leukocytosis with WBC count of 14.3 and lactic acidosis with initial lactate of 2.4 with repeat lactate of 2.0 status post sepsis bolus troponin negative at less than 0.012 and proBNP 124. Covid PCR was negative. D-dimer was elevated at 0.83. Patient underwent CTA of chest which was negative for pulmonary emboli revealing minimal atelectasis in the lingula left upper lobe. Chest x-ray revealing minimal subsegmental atelectasis at left lung base. EKG revealing sinus tachycardia at 100 bpm with no noted T-wave or ST abnormalities. Patient was started on IV antibiotics azithromycin and Rocephin and admitted under our services. Physical exam: Patient seen and fully evaluated at the bedside. Patient with worsened cough and noted conversational dyspnea. Patient 94% on 3 L O2 via nasal cannula and decreases down to 90% with minimal exertion from walking from bed to chair. Oral prednisone discontinued and patient started on IV Solu-Medrol, will only administer 40 mg IVP every 12 hours secondary to patient's history of confusion with high-dose steroids. In addition added on scheduled Tessalon cough drops and when necessary Robitussin-AC. Consult placed to pulmonary secondary to patient's history of COPD and current exacerbation secondary to pneumonia. Patient transferred from observation status to inpatient at this time. We will continue with azithromycin and Rocephin. Patient denies having any headache, lightheadedness, dizziness, chest pain, palpitations, or experiencing any numbness/tingling/weakness/swelling in her extremities. Vital signs reviewed and stable. General: Nontoxic, no distress and appears stated age. Derm: Skin warm and dry, normal coloration for ethnicity. Head: Atraumatic, normocephalic and symmetric. Eyes: EOMs intact, no lid lag, and anicteric sclera Mouth: no lip lesions, mucus membranes moist Cardiovascular: regular rate and rhythm with normal S1S2, systolic murmur, positive posterior tibial pulses bilaterally, and cap refill < 2 seconds. Lungs: Respirations even, regular, and unlabored on room air. Lungs diffuse rhonchi left upper and mid lung and soft expiratory wheezes left upper lobe. No rales, no wheezing, and no accessory muscle usage. Abdominal: Obese abdomen soft, nontender to palpation, no guarding, no appreciable organomegaly Ext: ROM intact. No gross muscle atrophy, no edema, no contractures Neuro: Speech clear, face symmetrical and CN II-XII grossly intact with no noted focal neuro deficits Psych: Alert and oriented to person, place, time, and situation. Appropriate and pleasant affect. Assessment and Plan of Care: Community Aquired Pneumonia COPD with acute exacerbation secondary to above Lactic acidosis, resolved with IV fluid bolus -Oxygenation to be administered and titrated as needed to maintain SPO2 equal to or greater than 92% -Telemetry monitoring. -Continuous Pulse-oximetry -Duonebs as needed for SOB and/or wheezing -Incentive Spirometry and encourage use 10-15 times hourly while awake, -Steroids: Solu-Medrol 40 mg IVP every 12 hours -Antibiotics: Rocephin and Azithromycin -Symptomatic care and pain management Hypertension -Monitor vital signs and continue daily medication regimenith atenolol Elevated d-dimer, CT negative for PE CODE STATUS: Full code DVT prophylaxis: Heparin Discussed with: Patient and RN Anticipated discharge date: Clinical course to determine Anticipated discharge place: Home A total of 34 minutes was spent on the care of this complex patient more than 50% of the time was spent in counseling and care coordination. Objective - Vital Signs Vital signs: Vital Signs Temp 97.9 F 03/04/22 13:58 Pulse 78 03/04/22 13:58 Resp 22 03/04/22 13:58 BP 107/66 03/04/22 13:58 Pulse Ox 94 L 03/04/22 13:58 Intake & Output 03/03/22 03/04/22 03/04/22 18:59 06:59 18:59 Intake Total 240 Balance 240 Weight 70.307 kg Intake: Oral 240 Other: # Voids 1 1 - Labs CBC & Chem 7: 03/04/22 06:14 03/04/22 06:14 Labs: Abnormal Lab Results - Last 24 Hours (Table) 03/04/22 03/04/22 Range/Units 06:14 06:14 WBC 15.62 H (4.50-10.00) X 10*3/uL RBC 3.95 L (4.10-5.20) X 10*6/uL Hgb 11.1 L (12.0-15.0) g/dL Hct 35.2 L (37.2-46.3) % MCHC 31.5 L (32.0-37.0) g/dL RDW 14.6 H (11.5-14.5) % Anion Gap 8.40 L (10.00-18.00) mmol/L Total Bilirubin <0.15 L (0.30-1.20) mg/dL Total Protein 5.5 L (6.2-8.2) g/dL Albumin 3.5 L (3.8-4.9) g/dL Microbiology - Last 24 Hours (Table) 03/03/22 01:25 Blood Culture - Preliminary Blood No Growth after 24 hours 03/03/22 01:09 Blood Culture - Preliminary Blood No Growth after 24 hours Assessment and Plan Plan: This documentation was completed by the Nurse Practitioner. History, physical examination including assessment and plan were only completed by Nurse Daniela lang and was NOT evaluated by myself the attending physician including all plan of care including discharge planning and documentation. I did NOT participate or have any communication regarding the patient, including orders, imaging, diagnostic work up, consultations, communication with registered RN/cardiac cath technician and discharge planning/instructions. I will be co-signing this documentation as this is a requirement per [facility] and agreement.
[2022-03-04] MEDS: BENZONATATE 100 MG CAP PO SCH ×2 (15:58→20:47)
[2022-03-04] MEDS: LEVOTHYROXINE 50 MCG TAB PO SCH (20:46)
[2022-03-04] MEDS: methylPREDNISolone SOD SUCCI 40 MG/ML 1 ML VIAL IV SCH (20:46)
[2022-03-04] MEDS: FLUoxetine HCL 20 MG CAP PO SCH (20:46)
[2022-03-04] MEDS: atenoloL 25 MG TAB PO SCH (20:46)
[2022-03-05] MEDS: HEPARIN SODIUM,PORCINE/PF 5,000 UNIT/0.5 ML SYRINGE SQ SCH ×3 (08:03→22:40)
[2022-03-05] MEDS: HYDROcodone/APAP 10-325MG 1 EACH TAB PO SCH ×3 (08:03→22:39)
[2022-03-05] MEDS: PANTOPRAZOLE 40 MG TABLET PO SCH (08:03)
[2022-03-05] MEDS: BENZONATATE 100 MG CAP PO SCH ×3 (08:03→20:05)
[2022-03-05] MEDS: methylPREDNISolone SOD SUCCI 40 MG/ML 1 ML VIAL IV SCH ×2 (08:04→20:04)
[2022-03-05] MEDS: AZITHROMYCIN 500 MG TAB PO SCH (08:04)
[2022-03-05] MEDS: IPRATROPIUM-ALBUTEROL 3 ML NEB INHALATION SCH ×4 (08:36→20:34)
--- NOTE | 2022-03-05 10:36 | P.CNPUL ---
History of Present Illness Consult date: 03/05/22 Requesting physician: Melissa Wynn Reason for consult: dyspnea Chief complaint: Shortness of breath History of present illness: This is a pleasant 66-year-old female patient with a known history of hypertension, fibromyalgia, gastroesophageal reflux disease, chronic and ongoing tobacco dependence of 50 years. She presented here to the emergency room 2 days ago for complaints of increasing shortness of breath cough and congestion. She states she was exposed to fumes from burning oils and her home and had made her breathing worse. Chest x-ray revealed minimal atelectasis of the left lung base. CT angiogram of the chest ruled out pulmonary embolism. There is minimal atelectasis in the lingula and left upper lobe. Normal heart. Blood cultures reveal no growth to date. White count 15.6. Hemoglobin 11.1. Platelets 277. Sodium 143. Potassium 3.9. BUN 11. Creatinine 0.7. Lactic acid 2.0. AST 15. ALT 16. Berrios virus by PCR not detected. She is seen in consultation on the regular medical floor. She is currently resting quite comfortably in bed. Awake and alert in no acute distress. Maintaining O2 saturations in the 90s on room air. She has 0.9 normal saline running at 20 ML's per hour. His been initiated and DuoNeb inhalations, IV Solu-Medrol, empiric antibiotics in the form of ceftriaxone and azithromycin. Review of Systems REVIEW OF SYSTEMS: CONSTITUTIONAL: Denies any recent significant weight loss or weight gain. EYES: Denies change in vision. EARS, NOSE, MOUTH, THROAT: Denies headaches, denies sore throat. CARDIOVASCULAR: Denies chest pain, palpitations or syncopal episodes. RESPIRATORY: Positive for shortness of breath, cough, congestion no hemoptysis. GASTROINTESTINAL: Denies change in appetite, denies abdominal pain GENITOURINARY: Denies hematuria, denies infections. MUSKULOSKELETAL: Denies pain, denies swelling. INTEGUMENTARY: Denies rash, denies eczema. NEUROLOGICAL: Denies recent memory loss, no recent seizure activity. PSYCHIATRIC: Denies anxiety, denies depression. HEMATOLOGIC/LYMPHATIC: Denies anemia, denies enlarged lymph nodes. Past Medical History Past Medical History: Fibromyalgia, GERD/Reflux, Hypertension, Pneumonia Additional Past Medical History / Comment(s): Ruptured disc, bronchitis, fractured tailbone. Fractured right and left arm, wrists. Right shoulder fracture. Sees Dr. Perales for pain management. Chronic back pain. Last Myocardial Infarction Date:: 2018 History of Any Multi-Drug Resistant Organisms: None Reported Past Surgical History: Cholecystectomy, Heart Catheterization, Orthopedic Surgery Additional Past Surgical History / Comment(s): c4, c5, c6 fusion, right rotator cuff repair, normal heart catheterization in 2018. Past Anesthesia/Blood Transfusion Reactions: No Reported Reaction, Motion Sickness Additional Past Anesthesia/Blood Transfusion Reaction / Comment(s): Pt has clausterphobia. Past Psychological History: Depression Smoking Status: Current every day smoker, Light tobacco smoker Past Alcohol Use History: None Reported Past Drug Use History: None Reported - Past Family History Father History Unknown: Yes Family Medical History: CVA/TIA, Pulmonary Embolus Additional Family Medical History / Comment(s): Father of a CVA in his 80s. Mother Family Medical History: Cancer, Coronary Artery Disease (CAD), Hyperlipidemia, Hypertension Additional Family Medical History / Comment(s): Mother had uterine cancer with surgery. She at the age of 87yrs. Brother(s) History Unknown: Yes Sister(s) Family Medical History: Coronary Artery Disease (CAD) Daughter(s) Family Medical History: Asthma Son(s) History Unknown: Yes Medications and Allergies Home Medications Medication Instructions Recorded Confirmed Type Furosemide [Lasix] 40 mg PO DAILY 03/21/18 03/03/22 History atenoloL [Tenormin] 25 mg PO HS 03/21/18 03/03/22 History Esomeprazole Magnesium [NexIUM] 40 mg PO DAILY 02/14/19 03/03/22 History HYDROcodone/APAP 10-325MG [[place] 1 tab PO TID 12/05/20 03/03/22 History 10-325] Butalbital/Acetaminophen 50-325mg 1 tab PO DAILY PRN 03/03/22 03/03/22 History Ergocalciferol [Vitamin D2 (1250 1,250 mcg PO SA 03/03/22 03/03/22 History Mcg = 34400 Iu)] FLUoxetine HCL [Sarafem] 40 mg PO HS 03/03/22 03/03/22 History Levothyroxine Sodium [Synthroid] 50 mcg PO HS 03/03/22 03/03/22 History Allergies Allergy/AdvReac Type Severity Reaction Status Date / Time bupropion HCl Allergy Rash/Hives Verified 03/03/22 07:33 [From Wellbutrin] diclofenac potassium Allergy Anaphylaxis Verified 03/03/22 07:33 [From Cataflam] duloxetine HCl Allergy Rash/Hives Verified 03/03/22 07:33 [From Cymbalta] gabapentin [From Neurontin] Allergy Rash/Hives Verified 03/03/22 07:33 Latex, Natural Rubber Allergy Itching Verified 03/03/22 07:33 paroxetine HCl [From Paxil] Allergy Rash/Hives Verified 03/03/22 07:33 tramadol Allergy Unknown Verified 03/03/22 07:33 naproxen [From Aleve] AdvReac Severe Nausea & Verified 03/03/22 07:33 Vomiting Corticosteroids AdvReac Confusion Verified 03/03/22 07:33 (Glucocorticoids) Physical Exam Vitals: Vital Signs Temp Pulse Pulse Pulse Resp BP Pulse Ox 03/05/22 08:48 66 03/05/22 08:36 62 03/05/22 08:00 62 16 03/05/22 07:00 98.0 F 62 16 144/77 96 03/05/22 03:02 98.2 F 63 17 138/69 94 L 03/04/22 21:02 98.0 F 81 19 123/71 95 03/04/22 20:29 80 03/04/22 20:19 82 96 03/04/22 20:00 19 03/04/22 16:14 78 03/04/22 15:51 74 03/04/22 13:58 97.9 F 78 22 107/66 94 L 03/04/22 13:41 105 H 03/04/22 12:25 68 03/04/22 12:07 68 Pulse Ox 03/05/22 08:48 03/05/22 08:36 03/05/22 08:00 03/05/22 07:00 03/05/22 03:02 03/04/22 21:02 03/04/22 20:29 03/04/22 20:19 03/04/22 20:00 03/04/22 16:14 03/04/22 15:51 03/04/22 13:58 03/04/22 13:41 90 L 03/04/22 12:25 03/04/22 12:07 Intake and Output 03/04/22 03/05/22 03/05/22 22:59 06:59 14:59 Intake Total 180 Balance 180 Intake: Oral 180 Other: Voiding Method Toilet # Voids 1 1 GENERAL EXAM: Alert, active, pleasant 66-year-old female, on room air, comfortable in no apparent distress. HEAD: Normocephalic. EYES: Normal reaction of pupils, equal size. NOSE: Clear with pink turbinates. THROAT: No erythema or exudates. NECK: No masses, no JVD. CHEST: No chest wall deformity. LUNGS: Equal air entry with end expiratory wheeze bilaterally, diminished. CVS: S1 and S2 normal with no audible murmur, regular rhythm. ABDOMEN: No hepatosplenomegaly, normal bowel sounds, no guarding or rigidity. SPINE: No scoliosis or deformity SKIN: No rashes CENTRAL NERVOUS SYSTEM: No focal deficits, tone is normal in all 4 extremities. EXTREMITIES: There is no peripheral edema. No clubbing, no cyanosis. Peripheral pulses are intact. Results - Laboratory Findings CBC and BMP: 03/04/22 06:14 03/04/22 06:14 PT/INR, D-dimer PT 10.3 sec (9.0-12.0) 03/03/22 01:25 INR 0.9 (<1.2) 03/03/22 01:25 D-Dimer 0.83 mg/L FEU (<0.60) H 03/03/22 01:25 Abnormal lab findings: Abnormal Labs 03/03/22 03/03/22 03/03/22 01:25 01:25 01:25 WBC 14.3 H RBC Hgb Hct MCHC RDW Neutrophils # (Manual) 10.10 H D-Dimer 0.83 H Anion Gap Glucose 134 H Plasma Lactic Acid Conner Total Bilirubin Total Protein Albumin 03/03/22 03/03/22 03/04/22 01:25 05:11 06:14 WBC 15.62 H RBC 3.95 L Hgb 11.1 L Hct 35.2 L MCHC 31.5 L RDW 14.6 H Neutrophils # (Manual) D-Dimer Anion Gap Glucose Plasma Lactic Acid Conner 2.1 H* 2.4 H* Total Bilirubin Total Protein Albumin 03/04/22 06:14 WBC RBC Hgb Hct MCHC RDW Neutrophils # (Manual) D-Dimer Anion Gap 8.40 L Glucose Plasma Lactic Acid Conner Total Bilirubin <0.15 L Total Protein 5.5 L Albumin 3.5 L - Diagnostic Findings Chest x-ray: image reviewed CT scan - chest: image reviewed Assessment and Plan Assessment: 1 Acute exacerbation of chronic obstructive pulmonary disease 2 Chronic and ongoing tobacco dependence of 50 years 3 Fibromyalgia 4 Hypothyroidism 5 Gastroesophageal reflux disease 6 Hypertension Plan: The patient was seen and evaluated Chest x-ray, CAT scan and labs reviewed Continue DuoNeb inhalations, IV Solu-Medrol Add Symbicort Educated regarding the importance of smoking cessation NicoDerm patch will be offered Continue empiric antibiotics for now Obtain a pro-calcitonin Probable discharge in the a.m. She would benefit from a follow-up in the office for full pulmonary function testing We will continue to follow and make further recommendations based on her clinical status I have personally seen and examined the patient, performed the documentation and the assessment and plan as written. Number of minutes spent on the visit: 20.
--- NOTE | 2022-03-05 18:21 | P.PN ---
Subjective Progress Note Date: 03/05/22 Late documentation, evaluated patient at bedside at 11:20 AM Hospital course: Patient is a 66-year-old female with a past medical history of COPD and hypertension. She presented to the emergency department with a chief complaint of increased cough and shortness of breath. Patient reports this began approximately one week ago and progressively worsened. Patient states it has been accompanied by chills and diaphoresis. Patient reports these symptoms significantly worsened after burning some oils in her home and she was no longer able to catch her breath so she had to come to the emergency department for evaluation. Patient denies any headache, lightheadedness, dizziness, chest pain, palpitations, abdominal pain, nausea, vomiting, or experiencing any numbness/tingling/weakness/swelling in her extremities. In the emergency department patient underwent full evaluation. She was found to be tachycardic with heart rate of 105 and tachypnea with respiratory rate of 22 SpO2 was 94% on 3 L. Labs obtained revealing leukocytosis with WBC count of 14.3 and lactic acidosis with initial lactate of 2.4 with repeat lactate of 2.0 status post sepsis bolus troponin negative at less than 0.012 and proBNP 124. Covid PCR was negative. D-dimer was elevated at 0.83. Patient underwent CTA of chest which was negative for pulmonary emboli revealing minimal atelectasis in the lingula left upper lobe. Chest x-ray revealing minimal subsegmental atelectasis at left lung base. EKG revealing sinus tachycardia at 100 bpm with no noted T-wave or ST abnormalities. Patient was started on IV antibiotics azithromycin and Rocephin and admitted under our services with consultation to pulmonology. Physical exam: Patient seen and fully evaluated at the bedside. She appears to have some improvement from yesterday and no longer having noted conversational dyspnea but patient continues to report significant shortness of breath with any exertion. She remains on azithromycin and Rocephin as well as Solu-Medrol 40 mg IVP every 12 hours. Patient to continue as scheduled Tessalon cough drops and when necessary Robitussin-AC for cough and DuoNeb as needed for shortness of breath a nd/or wheezing. Pulmonary following. Patient will likely be discharged home tomorrow morning. Discussed with nursing staff to encourage patient out of bed into chair and mild ambulation and to increase stamina and endurance. Home oxygen evaluation to be completed. Vital signs reviewed and stable. General: Nontoxic, no distress and appears stated age. Derm: Skin warm and dry, normal coloration for ethnicity. Head: Atraumatic, normocephalic and symmetric. Eyes: EOMs intact, no lid lag, and anicteric sclera Mouth: no lip lesions, mucus membranes moist Cardiovascular: regular rate and rhythm with normal S1S2, systolic murmur, positive posterior tibial pulses bilaterally, and cap refill < 2 seconds. Lungs: Respirations even, regular, and unlabored on room air. Lungs diffuse rhonchi left upper and mid lung and soft expiratory wheezes left upper lobe. No rales, no wheezing, and no accessory muscle usage. Abdominal: Obese abdomen soft, nontender to palpation, no guarding, no appr eciable organomegaly Ext: ROM intact. No gross muscle atrophy, no edema, no contractures Neuro: Speech clear, face symmetrical and CN II-XII grossly intact with no noted focal neuro deficits Psych: Alert and oriented to person, place, time, and situation. Appropriate and pleasant affect. Assessment and Plan of Care: Community Aquired Pneumonia COPD with acute exacerbation secondary to above Lactic acidosis, resolved with IV fluid bolus -Oxygenation to be administered and titrated as needed to maintain SPO2 equal to or greater than 92% -Telemetry monitoring. -Continuous Pulse-oximetry -Duonebs as needed for SOB and/or wheezing -Incentive Spirometry and encourage use 10-15 times hourly while awake, -Steroids: Solu-Medrol 40 mg IVP every 12 hours -Antibiotics: Rocephin and Azithromycin -Symptomatic care and pain management -Nicotine patch and encouraged smoking cessation Hypertension -Monitor vital signs and continue daily medication regimenith atenolol Elevated d-dimer, CT negative for PE CODE STATUS: Full code DVT prophylaxis: Heparin Discussed with: Patient and RN Anticipated discharge date: Tomorrow morning Anticipated discharge place: Home A total of 31 minutes was spent on the care of this complex patient more than 50% of the time was spent in counseling and care coordination. Objective - Vital Signs Vital signs: Vital Signs Temp 98.3 F 03/05/22 14:43 Pulse 64 03/05/22 16:23 Resp 16 03/05/22 14:43 BP 151/74 03/05/22 14:43 Pulse Ox 95 03/05/22 14:43 Intake & Output 03/04/22 03/05/22 03/05/22 18:59 06:59 18:59 Intake Total 478 Balance 478 Intake: Oral 478 Other: Voiding Method Toilet # Voids 2 1 3 - Labs CBC & Chem 7: 03/04/22 06:14 03/04/22 06:14 Labs: Abnormal Lab Results - Last 24 Hours (Table) 03/05/22 Range/Units 10:51 Procalcitonin 1.25 H (0.02-0.09) ng/mL Microbiology - Last 24 Hours (Table) 03/03/22 01:25 Blood Culture - Preliminary Blood No Growth after 48 hours 03/03/22 01:09 Blood Culture - Preliminary Blood No Growth after 48 hours
[2022-03-05] MEDS ORDERED: NICOTINE 21MG/24HR PATCH TRANSDERM SCH (18:30)
[2022-03-05] MEDS: LEVOTHYROXINE 50 MCG TAB PO SCH (20:04)
[2022-03-05] MEDS: atenoloL 25 MG TAB PO SCH (20:04)
[2022-03-05] MEDS: FLUoxetine HCL 20 MG CAP PO SCH (20:05)
[2022-03-05] MEDS: SYMBICORT 160-4.5 MCG INHALER INHALATION SCH (20:35)
[2022-03-05] MEDS: NICOTINE 21MG/24HR PATCH TRANSDERM SCH (22:40)
[2022-03-06 02:11] VITALS: RESP 17
[2022-03-06] MEDS: SYMBICORT 160-4.5 MCG INHALER INHALATION SCH (07:30)
[2022-03-06] MEDS: IPRATROPIUM-ALBUTEROL 3 ML NEB INHALATION SCH ×2 (07:30→11:10)
[2022-03-06 07:47] VITALS: BP 151/78; TEMP 97.8
[2022-03-06] MEDS: NICOTINE 21MG/24HR PATCH TRANSDERM SCH (08:45)
[2022-03-06] MEDS: AZITHROMYCIN 500 MG TAB PO SCH (08:46)
[2022-03-06] MEDS: HEPARIN SODIUM,PORCINE/PF 5,000 UNIT/0.5 ML SYRINGE SQ SCH (08:46)
[2022-03-06] MEDS: methylPREDNISolone SOD SUCCI 40 MG/ML 1 ML VIAL IV SCH (08:46)
[2022-03-06] MEDS: HYDROcodone/APAP 10-325MG 1 EACH TAB PO SCH (08:47)
[2022-03-06] MEDS: PANTOPRAZOLE 40 MG TABLET PO SCH (08:47)
[2022-03-06] MEDS: BENZONATATE 100 MG CAP PO SCH (08:48)
[2022-03-06 11:14] VITALS: PULSE 60
--- NOTE | 2022-03-06 11:38 | P.PN ---
Subjective Progress Note Date: 03/06/22 This is a pleasant 66-year-old female patient with a known history of hypertension, fibromyalgia, gastroesophageal reflux disease, chronic and ongoing tobacco dependence of 50 years. She presented here to the emergency room 2 days ago for complaints of increasing shortness of breath cough and congestion. She states she was exposed to fumes from burning oils and her home and had made her breathing worse. Chest x-ray revealed minimal atelectasis of the left lung base. CT angiogram of the chest ruled out pulmonary embolism. There is minimal atelectasis in the lingula and left upper lobe. Normal heart. Blood cultures reveal no growth to date. White count 15.6. Hemoglobin 11.1. Platelets 277. Sodium 143. Potassium 3.9. BUN 11. Creatinine 0.7. Lactic acid 2.0. AST 15. ALT 16. Berrios virus by PCR not detected. She is seen in consultation on the regular medical floor. She is currently resting quite comfortably in bed. Awake and alert in no acute distress. Maintaining O2 saturations in the 90s on room air. She has 0.9 normal saline running at 20 ML's per hour. His been initiated and DuoNeb inhalations, IV Solu-Medrol, empiric antibiotics in the form of ceftriaxone and azithromycin. The patient is seen today 03/06/2022 in follow-up on the regular medical floor. She is sitting up in bed. Awake and alert in no acute distress. She is maintaining good O2 saturations in the 90s on room air. Focused serotonin 1.25. Blood cultures revealed no growth. She is on ceftriaxone. Continued on Symbicort, DuoNeb inhalations, IV Solu-Medrol. Ecotrin patch in place. Heparin for DVT prophylaxis. Objective - Vital Signs Vital signs: Vital Signs Temp 97.8 F 03/06/22 07:00 Pulse 60 03/06/22 11:22 Resp 17 03/06/22 07:00 BP 151/78 03/06/22 07:00 Pulse Ox 95 03/06/22 07:00 Intake & Output 03/05/22 03/06/22 03/06/22 18:59 06:59 18:59 Intake Total 478 180 Balance 478 180 Intake: Oral 478 180 Other: Voiding Method Toilet Toilet # Voids 3 1 - Exam GENERAL EXAM: Alert, active, pleasant 66-year-old female, on room air, comfortable in no apparent distress. HEAD: Normocephalic. EYES: Normal reaction of pupils, equal size. NOSE: Clear with pink turbinates. THROAT: No erythema or exudates. NECK: No masses, no JVD. CHEST: No chest wall deformity. LUNGS: Equal air entry with end expiratory wheeze bilaterally, diminished. CVS: S1 and S2 normal with no audible murmur, regular rhythm. ABDOMEN: No hepatosplenomegaly, normal bowel sounds, no guarding or rigidity. SPINE: No scoliosis or deformity SKIN: No rashes CENTRAL NERVOUS SYSTEM: No focal deficits, tone is normal in all 4 extremities. EXTREMITIES: There is no peripheral edema. No clubbing, no cyanosis. Peripheral pulses are intact. - Labs CBC & Chem 7: 03/04/22 06:14 03/04/22 06:14 Labs: Abnormal Lab Results - Last 24 Hours (Table) 03/05/22 Range/Units 10:51 Procalcitonin 1.25 H (0.02-0.09) ng/mL Microbiology - Last 24 Hours (Table) 03/03/22 01:25 Blood Culture - Preliminary Blood No Growth after 72 hours 03/03/22 01:09 Blood Culture - Preliminary Blood No Growth after 72 hours Assessment and Plan Assessment: 1 Acute exacerbation of chronic obstructive pulmonary disease 2 Chronic and ongoing tobacco dependence of 50 years 3 Fibromyalgia 4 Hypothyroidism 5 Gastroesophageal reflux disease 6 Hypertension Plan: The patient was seen and evaluated Medication and labs reviewed For discharge from the pulmonary standpoint Complete a prednisone taper starting at 40 mrem daily for 4 days Complete a course of Omnicef 300mg BID x 5 days Continue Symbicort, albuterol HFA and nebulized treatments as needed Again educated regarding the importance of smoking cessation Follow-up in our office in 1-2 weeks' I have personally seen and examined the patient, performed the documentation and the assessment and plan as written. Number of minutes spent on the visit: 10.
--- NOTE | 2022-03-06 12:27 | P.DS ---
Providers Date of admission: 03/04/22 14:19 Expected date of discharge: 03/06/22 Attending physician: Willi Awan Consults: 03/04/22 14:20 Consult Physician Routine Consulting Provider: Ricardo Busch Consult Reason/Comments: COPD exacerbation, pneumonia Do you want consulting provider notified?: Yes Primary care physician: [facility] Course: 66-year-old female with a past medical history of COPD and hypertension. She presented to the emergency department with a chief complaint of increased cough and shortness of breath. Patient states it has been accompanied by chills and diaphoresis. Patient reports these symptoms significantly worsened after burning some oils in her home and she was no longer able to catch her breath so she had to come to the emergency department for evaluation. Patient denies any headache, lightheadedness, dizziness, chest pain, palpitations, abdominal pain, nausea, vomiting, or experiencing any numbness/tingling/weakness/swelling in her extremities. In the emergency department patient underwent full evaluation. She was found to be tachycardic with heart rate of 105 and tachypnea with respiratory rate of 22 SpO2 was 94% on 3 L. Labs obtained revealing leukocytosis with WBC count of 14.3 and lactic acidosis with initial lactate of 2.4 with repeat lactate of 2.0 status post sepsis bolus troponin negative at less than 0.012 and proBNP 124. Covid PCR was negative. D-dimer was elevated at 0.83. Patient underwent CTA of chest which was negative for pulmonary emboli revealing minimal atelectasis in the lingula left upper lobe. Chest x-ray revealing minimal subsegmental atelectasis at left lung base. EKG revealing sinus tachycardia at 100 bpm with no noted T-wave or ST abnormalities. Patient was started on IV antibiotics azithromycin and Rocephin and admitted under our services. She was also started on steroids as well as bronchodilators. Her procal was elevated. Abx continued. No fevers during the admission. She continues to smoke. She was seen by pulm who made the same above recommendations. She initially required NC low flow but currently she is on RA. She is feeling better and will be discharged in a stable condition. She was cleared by pulm. Time for discharge 35 min. Patient Condition at Discharge: Fair Plan - Discharge Summary Discharge Rx Participant: No New Discharge Prescriptions: New methylPREDNISolone Dose Pack [Medrol Dose Pack] 4 mg PO DIRECTED #21 tab Cefdinir [Omnicef] 300 mg PO BID 5 Days #10 cap Albuterol Sulfate [Proair Hfa] 1 - 2 puff INHALATION Q6HR PRN 30 Days #8.5 gm PRN Reason: Shortness Of Breath Budesonide-Formot 160-4.5 Mcg [Symbicort 160-4.5 Mcg Inhaler] 2 puff INHALATION RT-BID 30 Days #30 gm Continue Furosemide [Lasix] 40 mg PO DAILY atenoloL [Tenormin] 25 mg PO HS Esomeprazole Magnesium [NexIUM] 40 mg PO DAILY HYDROcodone/APAP 10-325MG [[place] 10-325] 1 tab PO TID FLUoxetine HCL [Sarafem] 40 mg PO HS Butalbital/Acetaminophen 50-325mg 1 tab PO DAILY PRN PRN Reason: Migraine Headache Levothyroxine Sodium [Synthroid] 50 mcg PO HS Ergocalciferol [Vitamin D2 (1250 Mcg = 97460 Iu)] 1,250 mcg PO SA Discharge Medication List Furosemide [Lasix] 40 mg PO DAILY 03/21/18 [History] atenoloL [Tenormin] 25 mg PO HS 03/21/18 [History] Esomeprazole Magnesium [NexIUM] 40 mg PO DAILY 02/14/19 [History] HYDROcodone/APAP 10-325MG [[place] 10-325] 1 tab PO TID 12/05/20 [History] Butalbital/Acetaminophen 50-325mg 1 tab PO DAILY PRN 03/03/22 [History] Ergocalciferol [Vitamin D2 (1250 Mcg = 48292 Iu)] 1,250 mcg PO SA 03/03/22 [History] FLUoxetine HCL [Sarafem] 40 mg PO HS 03/03/22 [History] Levothyroxine Sodium [Synthroid] 50 mcg PO HS 03/03/22 [History] Albuterol Sulfate [Proair Hfa] 1 - 2 puff INHALATION Q6HR PRN 30 Days #8.5 gm 03/06/22 [Rx] Budesonide-Formot 160-4.5 Mcg [Symbicort 160-4.5 Mcg Inhaler] 2 puff INHALATION RT-BID 30 Days #30 gm 03/06/22 [Rx] Cefdinir [Omnicef] 300 mg PO BID 5 Days #10 cap 04/22/22 [Rx] methylPREDNISolone Dose Pack [Medrol Dose Pack] 4 mg PO DIRECTED #21 tab 03/06/22 [Rx] Follow up Appointment(s)/Referral(s): Ricardo Busch DO [Doctor of Osteopathic Medicine] - 1 Week () Nura Forbes DO [Primary Care Provider] - 1-2 days
[2022-03-06] MEDS ORDERED: CEFDINIR 300 MG CAP PO SCH (21:00)
[2022-03-07] MEDS ORDERED: ERGOCALCIFEROL 1,250 MCG (50,000 IU) CAPSULE PO SCH (09:00)
== END 2022-03-06 14:08 | disposition home or self-care (01) ==
LOC: EC 01:08 → 6NMEDSUR 04:38 → INTOOBSV 03-04 14:19 → OBSVTOIN 03-04 14:19 → UNDODISIN 03-06 14:08
PROVIDERS: ADMIT Internal Medicine Geriatric Medicine; ATTEND Internal Medicine Geriatric Medicine
DX: J44.1 Chronic obstructive pulmonary disease with (acute) exacerbation (principal); J18.9 Pneumonia, unspecified organism; J44.0 Chronic obstructive pulmonary disease with (acute) lower respiratory infection; I10 Essential (primary) hypertension; R79.89 Other specified abnormal findings of blood chemistry; E87.2 Acidosis; M79.7 Fibromyalgia; K21.9 Gastro-esophageal reflux disease without esophagitis; E03.9 Hypothyroidism, unspecified; F17.210 Nicotine dependence, cigarettes, uncomplicated; D72.829 Elevated white blood cell count, unspecified; F32.A Depression, unspecified; G89.29 Other chronic pain; M54.9 Dorsalgia, unspecified; I25.2 Old myocardial infarction; E66.9 Obesity, unspecified; Z68.27 Body mass index [BMI] 27.0-27.9, adult; Z20.822 Contact with and (suspected) exposure to COVID-19; Z71.9 Counseling, unspecified; Z71.6 Tobacco abuse counseling; Z90.49 Acquired absence of other specified parts of digestive tract; Z98.1 Arthrodesis status; Z87.01 Personal history of pneumonia (recurrent); Z87.81 Personal history of (healed) traumatic fracture; Z79.891 Long term (current) use of opiate analgesic; Z79.890 Hormone replacement therapy; Z79.899 Other long term (current) drug therapy; Z88.5 Allergy status to narcotic agent; Z91.040 Latex allergy status; Z88.8 Allergy status to other drugs, medicaments and biological substances; Z79.51 Long term (current) use of inhaled steroids; Z82.49 Family history of ischemic heart disease and other diseases of the circulatory system; Z83.438 Family history of other disorder of lipoprotein metabolism and other lipidemia; Z80.49 Family history of malignant neoplasm of other genital organs; Z82.5 Family history of asthma and other chronic lower respiratory diseases; Z82.3 Family history of stroke
CPT/HCPCS: 96376 ×2; 96361 ×2; 96366 ×2; 96372 ×3; 96375; 96365; 99285; 36415; 94640 ×8; 94760; 93005; 85379; 83880; 80053 ×2; 83605; 83735; 84484; 85025; 85027; 85610; 85730; 87040; 84145; 87635; 71045; 71275; G0378 ×4; S4990 ×2; J2920 ×3; J0696 ×4; J7512 ×2; Q9967; J1644 ×4

== ENCOUNTER → 2023-10-14 | Outpatient (CLI) | payer MEDICARE ==
--- NOTE | 2023-10-14 15:03 | XR ---
EXAMINATION TYPE: XR sacrum coccyx DATE OF EXAM: 10/14/2023 CLINICAL HISTORY: pain TECHNIQUE: Three views of the sacrum and coccyx are submitted. COMPARISON: Sacral alae appear symmetric. No evidence for fracture or bony lesion. Sacroiliac joints are within normal limits. Visualized coccygeal segments are free of fracture or lesion. IMPRESSION: Normal study
== END | disposition home or self-care (01) ==
LOC: RADXRMAIN 14:14
PROVIDERS: ATTEND Family Medicine
DX: M89.8X8 Other specified disorders of bone, other site (principal)
CPT/HCPCS: 72220

== ENCOUNTER → 2024-03-07 | Outpatient (CLI) | payer MEDICARE ==
--- NOTE | 2024-03-09 14:29 | XR ---
EXAMINATION TYPE: XR cervical spine comp DATE OF EXAM: 03/07/2024 CLINICAL HISTORY: pain COMPARISON: NONE TECHNIQUE: Frontal, lateral, oblique, swimmers, and open mouth view of the cervical spine are obtaine d. FINDINGS: The cervical spine is visualized in its entirety from C1 thru the top of T1 level. It is s atisfactory in alignment without evidence of acute fracture or dislocation. Postoperative changes of ACDF at C4-C6. Anterior fixation plate in place. Normal postoperative alignment. The pre-vertebral s oft tissue appears within normal limits. Disc spaces are well preserved. The C1-C2 articulation is un remarkable on the open mouth view. The oblique images are within normal limits. IMPRESSION: No acute fracture or dislocation is seen in the cervical spine.ICD 10 NO FRACTURE, INITI AL EVALUATION
== END | disposition home or self-care (01) ==
LOC: RADXRMAIN 16:03
PROVIDERS: ATTEND Family Medicine
DX: M54.12 Radiculopathy, cervical region (principal); M54.2 Cervicalgia; Z98.890 Other specified postprocedural states
CPT/HCPCS: 72050